=== PATIENT | male | born 1935 | race Caucasian/White ===

== ENCOUNTER 2017-02-23 16:08 | Emergency (ER) | payer MEDICARE, BC ==
[~2017-02-23 16:08] MED LIST: ALFU1TAB10 PO; ASPI81 PO; LOTR5CAP2 PO; MECL25 PO; METO25 PO; SIMV40TA PO; TAB-TAB PO
[2017-02-23 16:35] VITALS: BP 170/89; PULSE 74; RESP 18; TEMP 97.6; O2SAT 95
[2017-02-23] MEDS ORDERED: ALFU10TA2 PO (16:47)
[2017-02-23] MEDS ORDERED: CRANCAP2 PO (16:47)
[2017-02-23] MEDS ORDERED: METO25TA3 PO (16:47)
[2017-02-23] MEDS ORDERED: AMLO5TAB2 PO (16:47)
[2017-02-23] MEDS ORDERED: LIPI40TA PO (16:47)
[2017-02-23] MEDS ORDERED: VITA500S3 PO (16:47)
[2017-02-23] MEDS ORDERED: DUTA1CAP2 PO (16:47)
[2017-02-23] MEDS ORDERED: CO Q100C9 (16:47)
[2017-02-23] MEDS ORDERED: COEN1CAP PO (16:47)
[2017-02-23] MEDS ORDERED: APIX5TAB PO (16:47)
[2017-02-23] MEDS ORDERED: SODIUM CHLOR 0.9% 1000 ML INJ 1,000 ML IV SCH (16:49)
[2017-02-23] MEDS ORDERED: ONDANSETRON HCL 4 MG/2 ML VIAL IVP ONE (17:00)
[2017-02-23] MEDS ORDERED: HYDROmorphone HCL PF 2 MG/ML VIAL IVS ONE (17:00)
[2017-02-23] MEDS ORDERED: DIATRIZOATE MEGLUM/DIATRIZOATE SOD 9 ML CUP ONE (17:01)
[2017-02-23 17:05] VITALS: O2SAT 84
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
[2017-02-23 17:10] VITALS: O2SAT 95
[2017-02-23 17:16] LABS: AUTOMATED NEUTROPHIL # 4.3 TH/MM3 (1.8-7.7); BASOPHIL # 0.1 TH/MM3 (0-0.2); BASOPHIL % 1.9 % (0.0-2.0); EOSINOPHIL # 0.2 TH/MM3 (0-0.4); EOSINOPHIL % 2.8 % (0.0-4.0); HEMATOCRIT 45.6 % (39.0-51.0); HEMO FLAGS DIFF FINAL; LYMPH % 27.5 % (9.0-44.0); MEAN CELL VOLUME 84.7 FL (80.0-100.0); MEAN CORPUSCULAR HEMOGLOBIN 28.9 PG (27.0-34.0); MEAN CORPUSCULAR HGB CONC 34.1 % (32.0-36.0); MONO % 8.9 % (0.0-8.0); NEUT % 58.9 % (16.0-70.0); PLATELET COUNT 207 TH/MM3 (150-450); RED BLOOD COUNT 5.39 MIL/MM3 (4.50-5.90); RED CELL DISTRIBUTION WIDTH 12.7 % (11.6-17.2); WHITE BLOOD COUNT 7.2 TH/MM3 (4.0-11.0)
[2017-02-23 17:26] LABS: CHLORIDE 102 MEQ/L (98-107); POTASSIUM 4.1 MEQ/L (3.5-5.1); SODIUM (NA) 136 MEQ/L (136-145)
[2017-02-23 17:30] LABS: ANION GAP 9 MEQ/L (5-15); BICARBONATE 24.8 MEQ/L (21.0-32.0); BLOOD UREA NITROGEN 20 MG/DL (7-18)
[2017-02-23 17:32] LABS: PROTHROMBIN TIME - PATIENT 10.5 SEC (9.8-11.6)
[2017-02-23 17:33] LABS: ALT (GPT) 17 U/L (12-78); AST (GOT) 15 U/L (15-37); GLOMERULAR FILTRATION RATE 53 ML/MIN (>89)
[2017-02-23 17:35] LABS: TOTAL BILIRUBIN ADULT 0.6 MG/DL (0.2-1.0)
[2017-02-23 17:36] LABS: ALKALINE PHOSPHATASE 95 U/L (45-117)
[2017-02-23 17:38] LABS: CREATINE KINASE 55 U/L (39-308)
[2017-02-23 17:55] VITALS: BP 188/97; PULSE 65; RESP 18; O2SAT 96
[2017-02-23] MEDS ORDERED: ONDANSETRON HCL 4 MG/2 ML VIAL IV PUSH ONE (18:45)
[2017-02-23] MEDS ORDERED: IOHEXOL 350 MG/ML 10 ML VIAL (for RAD DIAG) IVCONTRAST ONE (19:00)
--- NOTE | 2017-02-23 19:16 | RADRPT ---
EXAM DATE/TIME: 02/23/2017 18:37 [facility] COMPARISON: No previous studies available for comparison. INDICATIONS : Abdominal pain and constipation x 6 days. IV CONTRAST: 85 cc Omnipaque 350 (iohexol) IV ORAL CONTRAST: Prescribed oral contrast ingested. RADIATION DOSE: 22.05 CTDIvol (mGy) MEDICAL HISTORY : Renal calculi. Hypertension. Polycystic renal disease. SURGICAL HISTORY : Appendectomy. Cholecystectomy.Inguinal hernia repair. ENCOUNTER: Initial ACUITY: 4 - 6 days PAIN SCALE: 7/10 LOCATION: Abdomen. TECHNIQUE: Volumetric scanning of the abdomen and pelvis was performed. Using automated exposure control and ad justment of the mA and/or kV according to patient size, radiation dose was kept as low as reasonably achievable to obtain optimal diagnostic quality images. DICOM format image data is available electro nically for review and comparison. FINDINGS: LOWER LUNGS: The visualized lower lungs are clear. LIVER: A few scattered low density structures, the largest measuring 2.8 cm in size of the caudate lobe. The se are most likely cysts or hemangiomas. Previous cholecystectomy. No ductal dilatation. SPLEEN: Normal size without lesion. PANCREAS: Within normal limits. KIDNEYS: Numerous variable sized cysts of both kidneys measuring up to 7.4 cm in size. There is a 7 cm cyst of the upper pole of the right kidney with slightly increased attenuation relative to the other cysts a nd probably has some proteinaceous or hemorrhagic debris in it. I don't clearly see a solid mass. The re is a 4 mm nonobstructing stone of the right lower pole and a 4 x 7 mm nonobstructing stone of the left lower pole. A few scattered sub-3 mm nonobstructing stones are seen of the left mid zone. No ure teral calculus or hydronephrosis/hydroureter seen on either side. ADRENAL GLANDS: Within normal limits. VASCULAR: Abdominal aorta is tortuous and atherosclerotic. The vessel is mildly aneurysmal in the mid infrarena l portion, up to 3.3 cm. BOWEL/MESENTERY: Mainly fluid-filled colon. There is mild diverticulosis of the sigmoid colon. No obstruction or infla mmatory changes are demonstrated. There is a small hiatal hernia. Distal esophagus filled with contra st. ABDOMINAL WALL: Within normal limits. RETROPERITONEUM: There is no lymphadenopathy. BLADDER: No wall thickening or mass. REPRODUCTIVE: Within normal limits. INGUINAL: There is no lymphadenopathy or hernia. MUSCULOSKELETAL: No acute bony abnormality demonstrated. 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 CONCLUSION: 1. No obstruction or acute inflammatory changes. 2. Several hepatic hypodensities up to 2.8 cm, probably benign. 3. Numerous bilateral cysts and several nonobstructing stones of the kidneys. 4. Sigmoid colon diverticulosis but no diverticulitis. 5. Small hiatal hernia and suspected gastroesophageal reflux disease. 6. Tortuous, atherosclerotic and minimally aneurysmal abdominal aorta. Thor Mathias MD on February 23, 2017 at 19:09 Board Certified Radiologist. This report was verified electronically.
[2017-02-23 19:26] VITALS: BP 170/73; PULSE 67; RESP 18; TEMP 97.7; O2SAT 97
[2017-02-23] MEDS ORDERED: ORPHENADRINE INJ 60 MG/2 ML AMP IM ONE (20:15)
[2017-02-23] MEDS ORDERED: HYDROmorphone HCL PF 1 MG/ML VIAL IV PUSH ONE (21:30)
[2017-02-23] MEDS ORDERED: KETOROLAC TROMETHAMINE 30 MG/ML (IVP) VIAL IV PUSH ONE (21:30)
[2017-02-23] MEDS ORDERED: PERC10TA27 PO (22:07)
[2017-02-23] MEDS ORDERED: BACL20TA PO (22:07)
[2017-02-23 22:36] LABS: BLOOD, URINE NEG (NEG); GLUCOSE,URINE NEG (NEG); KETONE, URINE 15 mg/dL (NEG); NITRITE,URINE NEG (NEG)
[2017-02-23 22:40] LABS: URINE COLOR YELLOW (YELLW/STRAW)
[2017-02-23 22:41] LABS: COMMENT (UR) CULT NOT INDICATED; CULTURE IF INDICATED CULT NOT INDICATED; SQUAMOUS EPITHELIAL CELL URINE 0-5 /hpf (0-5); WBC, URINE 0-2 /hpf (0-5)
[2017-02-23 22:43] VITALS: BP 178/98
== END 2017-02-23 22:46 | disposition home or self-care (01) ==
LOC: PHED 16:08
DX: M54.5 Low back pain (principal); I71.4 Abdominal aortic aneurysm, without rupture; K57.90 Diverticulosis of intestine, part unspecified, without perforation or abscess without bleeding; I48.91 Unspecified atrial fibrillation; E78.00 Pure hypercholesterolemia, unspecified; N40.0 Benign prostatic hyperplasia without lower urinary tract symptoms; I10 Essential (primary) hypertension; H81.09 Meniere's disease, unspecified ear
CPT/HCPCS: 74177; 80053; 81001; 82550; 83690; 83880; 84484; 85025; 85610; 85730; 96361; 96372; 96374; 96375; 96376; 99285; J1170; J1885; J2360; J2405; J7030; Q9963; Q9967

== ENCOUNTER 2017-11-24 16:16 | Inpatient (IN) | payer MEDICARE, BC ==
[~2017-11-24] VITALS: Ht 177.8 cm; Wt 100.0 kg
[~2017-11-24 16:16] MED LIST changes: +ALFU10TA2 PO; -ALFU1TAB10 PO; +AMLO5TAB2 PO; +APIX5TAB PO; -ASPI81 PO; +CO Q100C9; +CRANCAP2 PO; +DUTA1CAP2 PO; +LIPI40TA PO; -LOTR5CAP2 PO; -MECL25 PO; -METO25 PO; +METO25TA3 PO; +PANT40TA3; -SIMV40TA PO; -TAB-TAB PO; +TRAM50TA; +VITA500S3 PO
[2017-11-24 16:27] VITALS: BP 147/75; PULSE 81; RESP 16; TEMP 98.2; O2SAT 97
[2017-11-24] MEDS ORDERED: ONDANSETRON ODT 4 MG TAB PO ONE (17:00)
[2017-11-24] MEDS ORDERED: MORPHINE SULFATE 2 MG/ML SYRINGE IM ONE (17:00)
--- NOTE | 2017-11-24 17:17 | PD ---
HPI Chief Complaint: Musculoskeletal Complaint Time Seen by Provider: 16:45 Travel History International Travel<30 days: No Contact w/Intl Traveler<30days: No Traveled to known affect area: No History of Present Illness HPI 82-year-old male here with low back pain 2 days. He has a history of chronic back pain and this feels similar. He denies any recent injury or trauma. No fever, incontinence, abdominal pain, saddle anesthesia, paresthesia or weakness of the extremities. Symptom severity is moderate. Worse with movement and relieved with rest. Occasionally pain radiates into the left leg. PCP: Dr. Raygoza [facility] Past Medical History Arthritis: Yes Asthma: No Atrial Fibrillation: Yes Autoimmune Disease: No Blood Disorders: No Heart Rhythm Problems: No Cancer: Yes (MELANOMA) Cardiovascular Problems: Yes High Cholesterol: Yes Chemotherapy: No Chest Pain: No Congestive Heart Failure: No COPD: No Diabetes: No Diminished Hearing: No Endocrine: No Gastrointestinal Disorders: Yes GERD: No Glaucoma: No Genitourinary: Yes (POLYSYSTIC KIDNEY DISEASE, BPH) Hepatitis: No Hiatal Hernia: No Hypertension: Yes Immune Disorder: No Kidney Stones: Yes Musculoskeletal: Yes (Lt. rotator cuff tear ) Neurologic: Yes (MENIERE'S DISEASE) Psychiatric: No Reproductive: No Respiratory: Yes Myocardial Infarction: No Radiation Therapy: No Renal Failure: No Sleep Apnea: Yes Thyroid Disease: No Ulcer: No Past Surgical History Abdominal Surgery: Yes (HERNIA REPAIR 1996) AICD: No Appendectomy: Yes Arteriovenous Shunt: No Cardiac Surgery: No Cholecystectomy: Yes Ear Surgery: No Endocrine Surgery: No Eye Surgery: Yes (BL cataracts w/ lens implants ) Genitourinary Surgery: Yes (Prostate blue laser [place] ) Gynecologic Surgery: No Insulin Pump: No Joint Replacement: Yes (Rt. knee, Lt. great toe ) Oral Surgery: No Pacemaker: No Thoracic Surgery: No Tonsillectomy: Yes Other Surgery: Yes (Melanoma removed w/ flap Rt. side neck ) Social History Alcohol Use: Yes (Occ.) Tobacco Use: No Substance Use: No Allergies-Medications (Allergen,Severity, Reaction): Coded Allergies: Sulfa (Sulfonamide Antibiotics) (Verified Allergy, Severe, Hives, 11/24/17) adhesive tape (Verified Allergy, Severe, Rash, 11/24/17) bacitracin (Verified Allergy, Severe, Rash, 11/24/17) polymyxin B (Verified Allergy, Severe, Rash, 11/24/17) diazepam (Unverified Adverse Reaction, Severe, "Cardiac arrest", 11/24/17) Reported Meds & Prescriptions Reported Meds & Active Scripts Active Reported Pantoprazole (Pantoprazole Sodium) 40 Mg Tab Eliquis (Apixaban) 5 Mg Tab 5 Mg PO DAILY Lipitor (Atorvastatin Calcium) 40 Mg Tab 40 Mg PO HS Cranberry Urinary Comfort (Vitamins C & E) 1 Cap 1 Cap PO DAILY Amlodipine (Amlodipine Besylate) 5 Mg Tab 5 Mg PO DAILY Co Q 10 (Coenzyme Q10 (Ubidecarenone)) 100 Mg-5 Unit Cap Vitamin B-12 (Cyanocobalamin) 500 Mcg Subl 1,000 Mg PO DAILY Dutasteride 0.5 Mg Cap 0.5 Mg PO DAILY Alfuzosin ER 24 HR 10 Mg Tab 10 Mg PO DAILY Metoprolol Tartrate 25 Mg Tab 25 Mg PO DAILY Review of Systems Except as stated in HPI: all other systems reviewed are Neg General / Constitutional: No: Fever Eyes: No: Visual changes HENT: No: Headaches Cardiovascular: No: Chest Pain or Discomfort Gastrointestinal: No: Abdominal Pain Genitourinary: No: Dysuria Skin: No Rash Physical Exam Narrative GENERAL: Alert and well-appearing 81-year-old male. Mild distress. SKIN: Warm and dry. HEAD: Normocephalic. EYES: No scleral icterus. No injection or drainage. NECK: Supple, trachea midline. CARDIOVASCULAR: Regular rate and rhythm without murmurs, gallops, or rubs. RESPIRATORY: Breath sounds equal bilaterally. No accessory muscle use. GASTROINTESTINAL: Abdomen soft, non-tender, nondistended. MUSCULOSKELETAL: No cyanosis, or edema. 5/5 strength in his lower extremities. 5/5 strength of dorsiflexion, plantar flexion, knee and hip flexion bilaterally. Sensation intact to light touch distally. BACK: Nontender without obvious deformity. No CVA tenderness. Generalized lumbar tenderness. No point tenderness of the spine. Data Data Last Documented VS Vital Signs Date Time Temp Pulse Resp B/P (MAP) Pulse Ox O2 Delivery O2 Flow Rate FiO2 11/24/17 19:03 63 20 147/68 (94) 94 11/24/17 16:27 98.2 Orders Orders Morphine Inj (Morphine Inj) (11/24/17 17:00) Ondansetron Odt (Zofran Odt) (11/24/17 17:00) Iv Access Insert/Monitor (11/24/17 17:33) Hydromorphone Pf Inj (Dilaudid Pf Inj) (11/24/17 17:45) Basic Metabolic Panel (Bmp) (11/24/17 17:57) Complete Blood Count With Diff (11/24/17 17:57) Ct Abd/Pel W Iv Contrast(Rout) (11/24/17 17:57) Ct Lumb Spine W Iv Contrast (11/24/17 17:57) Iohexol 350 Inj (Omnipaque 350 Inj) (11/24/17 19:12) Hydromorphone Pf Inj (Dilaudid Pf Inj) (11/24/17 19:45) Labs Laboratory Tests Test 11/24/17 18:00 White Blood Count 9.6 TH/MM3 Red Blood Count 4.84 MIL/MM3 Hemoglobin 13.9 GM/DL Hematocrit 41.9 % Mean Corpuscular Volume 86.5 FL Mean Corpuscular Hemoglobin 28.8 PG Mean Corpuscular Hemoglobin Concent 33.3 % Red Cell Distribution Width 13.4 % Platelet Count 259 TH/MM3 Mean Platelet Volume 8.5 FL Neutrophils (%) (Auto) 58.6 % Lymphocytes (%) (Auto) 30.6 % Monocytes (%) (Auto) 6.4 % Eosinophils (%) (Auto) 2.9 % Basophils (%) (Auto) 1.5 % Neutrophils # (Auto) 5.7 TH/MM3 Lymphocytes # (Auto) 2.9 TH/MM3 Monocytes # (Auto) 0.6 TH/MM3 Eosinophils # (Auto) 0.3 TH/MM3 Basophils # (Auto) 0.1 TH/MM3 CBC Comment DIFF FINAL Differential Comment Blood Urea Nitrogen 18 MG/DL Creatinine 0.99 MG/DL Random Glucose 94 MG/DL Calcium Level 9.1 MG/DL Sodium Level 139 MEQ/L Potassium Level 3.9 MEQ/L Chloride Level 105 MEQ/L Carbon Dioxide Level 22.4 MEQ/L Anion Gap 12 MEQ/L Estimat Glomerular Filtration Rate 72 ML/MIN MDM Medical Decision Making Medical Screen Exam Complete: Yes Emergency Medical Condition: Yes Interpretation(s) Afebrile. Normotensive. No tachycardia CBC: No acute abnormalities BMP: No acute after maladies Differential Diagnosis Acute on chronic low back pain, herniated disc, DDD Narrative Course 82-year-old male with a history of chronic low back pain here with increasing pain over the last 2 days and on relieved by Tylenol. He has a normal neurologic exam. During the course of the ED his pain was difficult to manage. CT abdomen pelvis/lumbar spine: Lytic bone destruction of L3 with likely pathologic fracture of L3 and L1 concerning for metastatic disease or myeloma. Spoke with Dr. Soria who agrees to it patient to their service. Diagnosis Primary Impression: Pathologic compression fracture of lumbar vertebra Qualified Codes: M48.56XA - Collapsed vertebra, not elsewhere classified, lumbar region, initial encounter for fracture Admitting Information Admitting Physician Requests: Admit Rhonda Roach Nov 24, 2017 17:17
[2017-11-24 17:32] VITALS: BP 152/87; PULSE 77; RESP 20; O2SAT 97
[2017-11-24] MEDS ORDERED: HYDROmorphone HCL PF 1 MG/ML VIAL IVS ONE (17:45)
[2017-11-24] MEDS ORDERED: HYDROmorphone HCL PF 0.5 MG/0.5 ML SYRINGE IV PUSH ONE (17:45)
--- NOTE | 2017-11-24 18:00 | PD ---
Data Data Last Documented VS Vital Signs Date Time Temp Pulse Resp B/P (MAP) Pulse Ox O2 Delivery O2 Flow Rate FiO2 11/24/17 19:03 63 20 147/68 (94) 94 11/24/17 16:27 98.2 Orders Orders Morphine Inj (Morphine Inj) (11/24/17 17:00) Ondansetron Odt (Zofran Odt) (11/24/17 17:00) Iv Access Insert/Monitor (11/24/17 17:33) Hydromorphone Pf Inj (Dilaudid Pf Inj) (11/24/17 17:45) Basic Metabolic Panel (Bmp) (11/24/17 17:57) Complete Blood Count With Diff (11/24/17 17:57) Ct Abd/Pel W Iv Contrast(Rout) (11/24/17 17:57) Ct Lumb Spine W Iv Contrast (11/24/17 17:57) Iohexol 350 Inj (Omnipaque 350 Inj) (11/24/17 19:12) Hydromorphone Pf Inj (Dilaudid Pf Inj) (11/24/17 19:45) Labs Laboratory Tests Test 11/24/17 18:00 White Blood Count 9.6 TH/MM3 Red Blood Count 4.84 MIL/MM3 Hemoglobin 13.9 GM/DL Hematocrit 41.9 % Mean Corpuscular Volume 86.5 FL Mean Corpuscular Hemoglobin 28.8 PG Mean Corpuscular Hemoglobin Concent 33.3 % Red Cell Distribution Width 13.4 % Platelet Count 259 TH/MM3 Mean Platelet Volume 8.5 FL Neutrophils (%) (Auto) 58.6 % Lymphocytes (%) (Auto) 30.6 % Monocytes (%) (Auto) 6.4 % Eosinophils (%) (Auto) 2.9 % Basophils (%) (Auto) 1.5 % Neutrophils # (Auto) 5.7 TH/MM3 Lymphocytes # (Auto) 2.9 TH/MM3 Monocytes # (Auto) 0.6 TH/MM3 Eosinophils # (Auto) 0.3 TH/MM3 Basophils # (Auto) 0.1 TH/MM3 CBC Comment DIFF FINAL Differential Comment Blood Urea Nitrogen 18 MG/DL Creatinine 0.99 MG/DL Random Glucose 94 MG/DL Calcium Level 9.1 MG/DL Sodium Level 139 MEQ/L Potassium Level 3.9 MEQ/L Chloride Level 105 MEQ/L Carbon Dioxide Level 22.4 MEQ/L Anion Gap 12 MEQ/L Estimat Glomerular Filtration Rate 72 ML/MIN MDM Supervised Visit with FER: Yes Narrative Course I, Dr. Aviles, have reviewed the advance practice practitioner's documentation and am in agreement, met with the patient face to face, made the diagnosis, and the medical decision making was done by me. *My assessment and Findings: This patient is a challenging historian. He using contradictory tail. I have spoken with him and examined him. As best I can tell, he has had back pain for at least a full year but it is worse today than usual. It has been a gradual worsening not an acute onset by any stretch. No injury. He has no neuro deficit. He gets around with a walker. He has been referred to pain management by his physician but that is not for another month and he came here for some pain relief. He does have known history of small 3.3 cm AAA which was found 9 months ago. He has known history of L1 severe compression fracture. We are going to CT images spine and his aorta. Given the size of his aneurysm I doubt this is related to his worsening chronic back pain but given his age and vague history we are going to check and make sure. I reviewed CT imaging of his lumbar spine and abdomen and pelvis. Radiologist notes pathologic fractures of L1 and L3. There is concern for multiple myeloma or other metastatic disease. Patient having significant back pain with these findings. He will require admission for further workup. Diagnosis Primary Impression: Pathologic compression fracture of lumbar vertebra Qualified Codes: M48.56XA - Collapsed vertebra, not elsewhere classified, lumbar region, initial encounter for fracture Additional Impression: Intractable back pain Admitting Information Admitting Physician Requests: Admit Disposition: 01 DISCHARGE HOME Coleman Aviles MD Nov 24, 2017 18:00
[2017-11-24 18:11] LABS: AUTOMATED NEUTROPHIL # 5.7 TH/MM3 (1.8-7.7); BASOPHIL # 0.1 TH/MM3 (0-0.2); BASOPHIL % 1.5 % (0.0-2.0); EOSINOPHIL # 0.3 TH/MM3 (0-0.4); EOSINOPHIL % 2.9 % (0.0-4.0); HEMATOCRIT 41.9 % (39.0-51.0); HEMOGLOBIN 13.9 GM/DL (13.0-17.0); LYMPH % 30.6 % (9.0-44.0); LYMPHOCYTE # 2.9 TH/MM3 (1.0-4.8); MEAN CELL VOLUME 86.5 FL (80.0-100.0); MEAN CORPUSCULAR HEMOGLOBIN 28.8 PG (27.0-34.0); MEAN CORPUSCULAR HGB CONC 33.3 % (32.0-36.0); MEAN PLATELET VOLUME 8.5 FL (7.0-11.0); MONO % 6.4 % (0.0-8.0); MONOCYTE # 0.6 TH/MM3 (0-0.9); NEUT % 58.6 % (16.0-70.0); PLATELET COUNT 259 TH/MM3 (150-450); RED BLOOD COUNT 4.84 MIL/MM3 (4.50-5.90); RED CELL DISTRIBUTION WIDTH 13.4 % (11.6-17.2); WHITE BLOOD COUNT 9.6 TH/MM3 (4.0-11.0)
[2017-11-24 18:34] LABS: CALCIUM 9.1 MG/DL (8.5-10.1)
[2017-11-24 18:35] LABS: BICARBONATE 22.4 MEQ/L (21.0-32.0)
[2017-11-24 18:38] LABS: CREATININE 0.99 MG/DL (0.60-1.30)
[2017-11-24 19:03] VITALS: BP 147/68; PULSE 63; RESP 20; O2SAT 94
[2017-11-24] MEDS ORDERED: IOHEXOL 350 MG/ML 10 ML VIAL (for RAD DIAG) IVCONTRAST ONE (19:12)
--- NOTE | 2017-11-24 19:18 | RADRPT ---
EXAM DATE: 11/24/2017 7:08 PM EDT AGE/SEX: 82 years / Male INDICATIONS: Back pain x 1 year, worse today. CLINICAL DATA: This is the patient's initial encounter. Patient reports that signs and symptoms have been present for 1 day and indicates a pain score of 5/10. MEDICAL/SURGICAL HISTORY: Aneurysm, abdominal. Gastroesophageal reflux disease. Renal calculi . Hypertension. Appendectomy. Cholecystectomy. ORAL CONTRAST: No oral contrast ingested. RADIATION DOSE: 18.65 CTDI (mGy) ; Combined studies COMPARISON: [facility], CT ABDOMEN & PELVIS W CONTRAST, 02/23/2017. . TECHNIQUE: Multiple contiguous axial images were obtained through the abdomen and pelvis following b olus infusion of 90 ml Omnipaque 350 (iohexol) nonionic water-soluble contrast as a cumulative dose for multiple exams. No oral contrast ingested. Using automated exposure control and adjustment of t he mA and/or kV according to patient size, the radiation dose was kept as low as reasonably achievabl e to obtain optimal diagnostic quality images. FINDINGS: There is bony destruction of the L3 vertebral body with pathologic fracture in the anterior and super ior endplate. This is a new finding compared with February 2017. Differential diagnosis includes mal ignant destruction such as myeloma. There is also development of a severe compression deformity at L1 with mild retropulsion and mild canal stenosis. There are numerous bilateral renal cysts similar in appearance to prior exam. Nonobstructing bilatera l renal calculi again noted. There are multiple hepatic cysts similar to prior exam. Spleen adrenals and pancreas are stable. Prev ious cholecystectomy. Small hiatal hernia. No pelvic mass or adenopathy. CONCLUSION: 1. Lytic bone destruction of L3 with likely pathologic fractures of L3 and L1. Primary differential diagnosis is metastatic disease or myeloma. 2. Stable appearance of bilateral renal cysts, nonobstructing renal calculi and hepatic cysts Septem 2016. Electronically signed by: Anand Emery MD 11/24/2017 7:16 PM EDT
--- NOTE | 2017-11-24 19:23 | RADRPT ---
EXAM DATE: 11/24/2017 7:12 PM EDT AGE/SEX: 82 years / Male INDICATIONS: Back pain x 1 year, worse today. Abdominal pain. History of AAA. CLINICAL DATA: This is the patient's initial encounter. Patient reports that signs and symptoms have been present for 1 day and indicates a pain score of 10/10. MEDICAL/SURGICAL HISTORY: Aneurysm, abdominal. Gastroesophageal reflux disease. Renal calculi. H ypertension. Appendectomy. Cholecystectomy. RADIATION DOSE: . CTDI (mGy) ; Reconstructed from previous dataset, no dose COMPARISON: No prior exams available for comparison. TECHNIQUE: Contiguous axial images were acquired with a multirow detector CT scanner after intraveno us administration of 90 ml Omnipaque 350 (iohexol) nonionic water-soluble contrast as a cumulative d ose for multiple exams. Multiplanar reconstructions in the sagittal and coronal plane were also perf ormed. Using automated exposure control and adjustment of the mA and/or kV according to patient size, radiation dose was kept as low as reasonably achievable to obtain optimal diagnostic quality images. FINDINGS: The bones are diffusely osteopenic. There is lytic bone destruction of L3 with pathologic fractures o f superior and inferior endplate. There is a severe compression deformity of L1 which is probably als o pathologic with mild retropulsion resulting in mild canal stenosis. At L1-2 there is no significant stenosis. At L2-3 there is a probable moderate central canal lateral recess stenosis and mild foraminal stenosi s. At L3-4 there is a mild central canal stenosis. At L4-5 there is a mild central canal stenosis. L5-S1 there is a grade 1 anterolisthesis with bilateral pars defects. Severe bilateral foraminal sten osis. CONCLUSION: 1. Osteopenia with lytic bone destruction at L3 and probable pathologic severe compression fracture of L1. Primary differential diagnosis is myeloma or metastatic disease. 2. Multilevel canal stenosis as above. 3. Grade 1 anterolisthesis of L5 on S1 with severe bilateral foraminal stenosis. Electronically signed by: Anand Emery MD 11/24/2017 7:21 PM EDT
[2017-11-24] MEDS ORDERED: HYDROmorphone HCL PF 1 MG/ML VIAL IV PUSH ONE (19:30)
[2017-11-24] MEDS ORDERED: HYDROmorphone HCL PF 2 MG/ML VIAL IV PUSH ONE (19:45)
[2017-11-24 20:00] VITALS: BP 149/80; PULSE 71; RESP 20; TEMP 97.1; O2SAT 91
[2017-11-24] MEDS ORDERED: MAGNESIUM HYDROXIDE SUSP 30 ML CUP PO PRN (20:00)
[2017-11-24] MEDS ORDERED: BISACODYL 10 MG SUPP RECTAL PRN (20:00)
[2017-11-24] MEDS ORDERED: LACTULOSE SYRUP 20 GM/30 ML CUP PO PRN (20:00)
[2017-11-24] MEDS ORDERED: ACETAMINOPHEN 325 MG TAB PO PRN (20:00)
[2017-11-24] MEDS ORDERED: SODIUM CHLORIDE 0.9% FLUSH 10 ML FLUSH IV FLUSH PRN (20:00)
[2017-11-24 20:13] VITALS: BP 186/83; PULSE 65; RESP 20; O2SAT 92
[2017-11-24] MEDS: METOCLOPRAMIDE HCL 10 MG/2 ML VIAL IV PUSH PRN (20:25)
[2017-11-24] MEDS: DOCUSATE SODIUM 50 MG/SENNA 8.6 MG TAB PO SCH (21:00)
[2017-11-24] MEDS: ATORVASTATIN 40 MG TAB PO SCH (21:00)
[2017-11-24] MEDS: SODIUM CHLORIDE 0.9% FLUSH 10 ML FLUSH IV FLUSH SCH (21:00)
[2017-11-24 21:15] VITALS: BP 170/79
[2017-11-24] MEDS: SODIUM CHLOR 0.9% 1000 ML INJ 1,000 ML IV SCH (22:05)
[2017-11-24] MEDS: PROCHLORPERAZINE INJ 10 MG/2 ML VIAL IV PUSH PRN (22:07)
[2017-11-24] MEDS: MORPHINE SULFATE 2 MG/ML SYRINGE IV PUSH PRN (22:08)
[2017-11-25] VITALS (8 sets, daily range): BP systolic 109–156; BP diastolic 55–80; PULSE 61–75; RESP 16–20; TEMP 96.2–97.5; O2SAT 94–97
[2017-11-25] MEDS: MORPHINE SULFATE 2 MG/ML SYRINGE IV PUSH PRN ×2 (01:56→06:10)
[2017-11-25] MEDS: SODIUM CHLOR 0.9% 1000 ML INJ 1,000 ML IV SCH (06:10)
[2017-11-25 07:37] LABS: AUTOMATED NEUTROPHIL # 4.7 TH/MM3 (1.8-7.7); BASOPHIL # 0.1 TH/MM3 (0-0.2); BASOPHIL % 0.9 % (0.0-2.0); EOSINOPHIL # 0.2 TH/MM3 (0-0.4); EOSINOPHIL % 2.3 % (0.0-4.0); HEMATOCRIT 39.7 % (39.0-51.0); HEMOGLOBIN 13.3 GM/DL (13.0-17.0); LYMPH % 29.2 % (9.0-44.0); LYMPHOCYTE # 2.3 TH/MM3 (1.0-4.8); MEAN CELL VOLUME 86.6 FL (80.0-100.0); MEAN CORPUSCULAR HEMOGLOBIN 28.9 PG (27.0-34.0); MEAN CORPUSCULAR HGB CONC 33.3 % (32.0-36.0); MEAN PLATELET VOLUME 8.6 FL (7.0-11.0); MONO % 8.4 % (0.0-8.0); MONOCYTE # 0.7 TH/MM3 (0-0.9); NEUT % 59.2 % (16.0-70.0); PLATELET COUNT 218 TH/MM3 (150-450); RED BLOOD COUNT 4.59 MIL/MM3 (4.50-5.90); RED CELL DISTRIBUTION WIDTH 13.4 % (11.6-17.2)
[2017-11-25 07:48] LABS: CHLORIDE 107 MEQ/L (98-107); SODIUM (NA) 141 MEQ/L (136-145)
[2017-11-25 07:57] LABS: ALBUMIN 2.8 GM/DL (3.4-5.0); BICARBONATE 24.6 MEQ/L (21.0-32.0); BLOOD UREA NITROGEN 17 MG/DL (7-18); CALCIUM 8.6 MG/DL (8.5-10.1); GLUCOSE,RANDOM 91 MG/DL (74-106)
[2017-11-25 08:00] LABS: ALT (GPT) 17 U/L (12-78); AST (GOT) 15 U/L (15-37); CREATININE 0.85 MG/DL (0.60-1.30); GLOMERULAR FILTRATION RATE 86 ML/MIN (>89)
[2017-11-25 08:02] LABS: TOTAL BILIRUBIN ADULT 0.6 MG/DL (0.2-1.0); TOTAL PROTEIN 6.4 GM/DL (6.4-8.2)
[2017-11-25 08:03] LABS: ALKALINE PHOSPHATASE 111 U/L (45-117)
[2017-11-25 08:04] LABS: C-REACTIVE PROTEIN 3.88 MG/DL (0.00-0.30)
[2017-11-25] MEDS: FINASTERIDE 5 MG TAB PO SCH (08:51)
[2017-11-25] MEDS: TAMSULOSIN HCL 0.4 MG CAP PO SCH (08:51)
[2017-11-25] MEDS: CYANOCOBALAMIN 1,000 MCG TAB PO SCH (08:52)
[2017-11-25] MEDS: SODIUM CHLORIDE 0.9% FLUSH 10 ML FLUSH IV FLUSH SCH ×2 (08:52→20:59)
[2017-11-25] MEDS: METOPROLOL TARTRATE 25 MG TAB PO SCH (08:52)
[2017-11-25] MEDS: DOCUSATE SODIUM 50 MG/SENNA 8.6 MG TAB PO SCH ×2 (08:52→21:24)
[2017-11-25] MEDS: amLODIPine BESYLATE 5 MG TAB PO SCH (08:52)
[2017-11-25] MEDS: ACETAMINOPHEN/HYDROcodone 325 MG/5 MG TAB PO PRN ×2 (08:58→18:07)
[2017-11-25 09:16] LABS: WESTERGREN SEDIMENTATION RATE 44 mm/hr (0-20)
--- NOTE | 2017-11-25 10:14 | HHI.HP ---
[facility] Primary Care Physician Simon Raygoza MD Admission Diagnosis PATHOLOGIC FX OF L3 Diagnoses: Chief Complaint: Back pain Travel History International Travel<30 Days: No Contact w/Intl Traveler <30 Da: No Traveled to Known Affected Are: No History of Present Illness This patient is a 82-year-old gentleman with a history of chronic back pain with multiple lumbar compression fractures and disc surgery evaluated since February 2017. Patient has had increased pain over the last 2 months and worse over the last 2 days. He has been in physical therapy over the last several months and noted a change in therapy treatment with increased pain. Pain is in the lumbar spine worse on the left than the right and radiating to bilateral legs worse again on the left and the right. It is improved with IV morphine. Patient normally takes Tylenol at home and noted that he found in oxycodone from her previous prescription and seemed to provide relief. He has no fever, incontinence, abdominal pain, saddle anesthesia or paresthesias or weakness. Pain is worse with movement and again relieved with morphine and rest. Patient came to the hospital for further evaluation and treatment of the same Review of Systems Constitutional: DENIES: Diaphoretic episodes, Fatigue, Fever, Weight gain, Weight loss, Chills, Dizziness, Change in appetite, Night Sweats Endocrine: DENIES: Heat/cold intolerance, Polydipsia, Polyuria, Polyphagia Eyes: DENIES: Blurred vision, Diplopia, Eye inflammation, Eye pain, Vision loss , Photosensitivity, Double Vision Ears, nose, mouth, throat: DENIES: Tinnitus, Hearing loss, Vertigo, Nasal discharge, Oral lesions, Throat pain, Hoarseness, Ear Pain, Running Nose, Epistaxis, Sinus Pain, Toothache, Odynophagia Gastrointestinal: DENIES: Abdominal pain, Black stools, Bloody stools, Constipation, Diarrhea, Nausea, Vomiting, Difficulty Swallowing, Anorexia Genitourinary: DENIES: Sexual dysfunction, Urinary frequency, Urinary incontinence, Urgency, Hematuria, Dysuria, Nocturia, Penile Discharge, Testicular Pain, Testicular Swelling Musculoskeletal: COMPLAINS OF: Joint pain, Back pain, DENIES: Muscle aches, Stiffness, Joint Swelling, Neck pain Integumentary: DENIES: Abnormal pigmentation, Nail changes, Pruritus, Rash Immunologic/allergic: DENIES: Eczema, Urticaria Neurologic: DENIES: Abnormal gait, Headache, Localized weakness, Paresthesias, Seizures, Speech Problems, Tremor, Poor Balance Psychiatric: DENIES: Anxiety, Confusion, Mood changes, Depression, Hallucinations, Agitation, Suicidal Ideation, Homicidal Ideation, Delusions Except as stated in HPI: all other systems reviewed are Neg Past Family Social History Past Medical History Atrial fibrillation Melanoma, right neck Polycystic kidney disease Benign prostatic hyperplasia Sleep apnea Years Past Surgical History Hernia repair Appendectomy Cataract surgery Prostate surgery Right knee surgery Skin surgery for melanoma right neck Cholecystectomy Tonsillectomy Carpal tunnel surgery bilaterally Reported Medications Reviewed in the EMR Allergies: Coded Allergies: Sulfa (Sulfonamide Antibiotics) (Verified Allergy, Severe, Hives, 11/24/17) adhesive tape (Verified Allergy, Severe, Rash, 11/24/17) bacitracin (Verified Allergy, Severe, Rash, 11/24/17) polymyxin B (Verified Allergy, Severe, Rash, 11/24/17) diazepam (Unverified Adverse Reaction, Severe, "Cardiac arrest", 11/24/17) Active Ordered Medications Reviewed in the EMR Family History Hypertension Social History No tobacco or alcohol dependency, lives with his , Physical Exam Vital Signs Vital Signs Date Time Temp Pulse Resp B/P (MAP) Pulse Ox O2 Delivery O2 Flow Rate FiO2 11/25/17 08:00 97.5 72 16 156/80 (105) 96 11/25/17 04:00 96.4 75 20 109/55 (73) 97 11/24/17 21:15 170/79 (109) 11/24/17 20:13 65 20 186/83 (117) 92 Room Air 11/24/17 20:00 97.1 71 20 149/80 (103) 91 11/24/17 19:03 63 20 147/68 (94) 94 11/24/17 17:32 77 20 152/87 (108) 97 11/24/17 16:27 98.2 81 16 147/75 (99) 97 Physical Exam GENERAL: This is a well-nourished, well-developed patient, in no apparent distress. SKIN: No rashes, ecchymoses or lesions. Cool and dry. HEAD: Atraumatic. Normocephalic. No temporal or scalp tenderness. EYES: Pupils equal round and reactive. Extraocular motions intact. No scleral icterus. No injection or drainage. ENT: Nose without bleeding, purulent drainage or septal hematoma. Throat without erythema, tonsillar hypertrophy or exudate. Uvula midline. Airway patent. NECK: Trachea midline. No JVD or lymphadenopathy. Supple, nontender, no meningeal signs. CARDIOVASCULAR: Regular rate and rhythm without murmurs, gallops, or rubs. RESPIRATORY: Clear to auscultation. Breath sounds equal bilaterally. No wheezes , rales, or rhonchi. GASTROINTESTINAL: abdomen soft, non-tender, nondistended. No hepato-splenomegaly , or palpable masses. No guarding. MUSCULOSKELETAL: Back pain, otherwise extremities without clubbing, cyanosis, or edema. No joint tenderness, effusion, or edema noted. No calf tenderness. Negative Homans sign bilaterally. NEUROLOGICAL: Awake and alert. Cranial nerves II through XII intact. Motor and sensory grossly within normal limits. Five out of 5 muscle strength in all muscle groups. Normal speech. Laboratory Laboratory Tests Test 11/24/17 18:00 11/25/17 06:11 White Blood Count 9.6 8.0 Red Blood Count 4.84 4.59 Hemoglobin 13.9 13.3 Hematocrit 41.9 39.7 Mean Corpuscular Volume 86.5 86.6 Mean Corpuscular Hemoglobin 28.8 28.9 Mean Corpuscular Hemoglobin Concent 33.3 33.3 Red Cell Distribution Width 13.4 13.4 Platelet Count 259 218 Mean Platelet Volume 8.5 8.6 Neutrophils (%) (Auto) 58.6 59.2 Lymphocytes (%) (Auto) 30.6 29.2 Monocytes (%) (Auto) 6.4 8.4 Eosinophils (%) (Auto) 2.9 2.3 Basophils (%) (Auto) 1.5 0.9 Neutrophils # (Auto) 5.7 4.7 Lymphocytes # (Auto) 2.9 2.3 Monocytes # (Auto) 0.6 0.7 Eosinophils # (Auto) 0.3 0.2 Basophils # (Auto) 0.1 0.1 CBC Comment DIFF FINAL DIFF FINAL Differential Comment Blood Urea Nitrogen 18 17 Creatinine 0.99 0.85 Random Glucose 94 91 Calcium Level 9.1 8.6 Sodium Level 139 141 Potassium Level 3.9 3.6 Chloride Level 105 107 Carbon Dioxide Level 22.4 24.6 Anion Gap 12 9 Estimat Glomerular Filtration Rate 72 86 Erythrocyte Sedimentation Rate 44 Total Protein 6.4 Albumin 2.8 Alkaline Phosphatase 111 Aspartate Amino Transf (AST/SGOT) 15 Alanine Aminotransferase (ALT/SGPT) 17 Total Bilirubin 0.6 C-Reactive Protein 3.88 Thyroid Stimulating Hormone 3rd Gen 1.730 Result Diagram: 11/25/17 0611 11/25/17 06 Imaging Last Impressions Lumbar Spine CT 11/24/171756 Signed Impressions: CONCLUSION: 1. Osteopenia with lytic bone destruction at L3 and probable pathologic severe compression fracture of L1. Primary differential diagnosis is myeloma or metas tatic disease. 2. Multilevel canal stenosis as above. 3. Grade 1 anterolisthesis of L5 on S1 with severe bilateral foraminal stenosi s. Abdomen/Pelvis CT 11/24/171756 Signed Impressions: CONCLUSION: 1. Lytic bone destruction of L3 with likely pathologic fractures of L3 and L1. Primary differential diagnosis is metastatic disease or myeloma. 2. Stable appearance of bilateral renal cysts, nonobstructing renal calculi an d hepatic cysts February 2017. Caprini VTE Risk Assessment Caprini VTE Risk Assessment: Mod/High Risk (score >= 2) Caprini Risk Assessment Model Point Value = 1 Point Value = 2 Point Value = 3 Point Value = 5 Age 41-60 Minor surgery BMI > 25 kg/m2 Swollen legs Varicose veins or History of unexplained or recurrent spontaneous Oral contraceptives or hormone replacement Sepsis (< 1 month) Serious lung disease, including pneumonia (< 1 month) Abnormal pulmonary function Acute myocardial infarction Congestive heart failure (< 1 month) History of inflammatory bowel disease Medical patient at bed rest Age 61-74 Arthroscopic surgery Major open surgery (> 45 min) Laparoscopic surgery (> 45 min) Malignancy Confined to bed (> 72 hours) Immobilizing plaster cast Central venous access Age >= 75 History of VTE Family history of VTE Factor V Leiden Prothrombin [id number] Lupus anticoagulant Anticardiolipin antibodies Elevated serum homocysteine Heparin-induced thrombocytopenia Other congenital or acquired thrombophilia Stroke (< 1 month) Elective arthroplasty Hip, pelvis, or leg fracture Acute spinal cord injury (< 1 month) Prophylaxis Regimen Total Risk Factor Score Risk Level Prophylaxis Regimen 0-1 Low Early ambulation 2 Moderate Order ONE of the following: *Sequential Compression Device (SCD) *Heparin 5000 units SQ BID 3-4 Higher Order ONE of the following medications: *Heparin 5000 units SQ TID *Enoxaparin/Lovenox 40 mg SQ daily (WT < 150 kg, CrCl > 30 mL/min) *Enoxaparin/Lovenox 30 mg SQ daily (WT < 150 kg, CrCl > 10-29 mL/min) *Enoxaparin/Lovenox 30 mg SQ BID (WT < 150 kg, CrCl > 30 mL/min) AND/OR *Sequential Compression Device (SCD) 5 or more Highest Order ONE of the following medications: *Heparin 5000 units SQ TID (Preferred with Epidurals) *Enoxaparin/Lovenox 40 mg SQ daily (WT < 150 kg, CrCl > 30 mL/min) *Enoxaparin/Lovenox 30 mg SQ daily (WT < 150 kg, CrCl > 10-29 mL/min) *Enoxaparin/Lovenox 30 mg SQ BID (WT < 150 kg, CrCl > 30 mL/min) AND *Sequential Compression Device (SCD) Assessment and Plan Problem List: (1) Afib ICD Code: I48.91 - Unspecified atrial fibrillation Plan: Patient on Xarelto Continue metoprolol Rate is controlled (2) Pathologic compression fracture of lumbar vertebra ICD Code: M48.56XA - Collapsed vertebra, not elsewhere classified, lumbar region, initial encounter for fracture Status: Acute Plan: he will benefit from further hematology evaluation We will discuss with hematology for further plan Continue with pain management Patient would like to have conservative management (3) Intractable back pain ICD Code: M54.9 - Dorsalgia, unspecified Status: Acute Plan: Continue with tramadol Outpatient pain management follow-up pending Probable pathological fracture, (4) HTN (hypertension) ICD Code: I10 - Essential (primary) hypertension Plan: Controlled on metoprolol and amlodipine Code Status Full code Discussed Condition With Patient, spouse, hematology Problem Qualifiers (1) Pathologic compression fracture of lumbar vertebra: Qualified Codes: M48.56XA - Collapsed vertebra, not elsewhere classified, lumbar region, initial encounter for fracture Susy Cooley MD Nov 25, 2017 10:14
[2017-11-25] MEDS: traMADol HCL 50 MG TAB PO SCH ×2 (11:02→21:25)
--- NOTE | 2017-11-25 11:40 | MB ---
cc: Micah Fink MD DATE: 11/25/2017 REASON FOR CONSULTATION: Probable lytic lesion at L3. PATIENT PROFILE OF PRESENT ILLNESS: The patient is an 82-year-old white male. He has been twice. He has 3 children, 2 daughters and a son. He was born in [place]. 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 He smoked only briefly for a total of 5 years when he was young. There is no history of excessive alcohol use. HISTORY OF PRESENT ILLNESS: The patient is an 82-year-old male who has had a longstanding history of lower back pain. He has a known compression fracture involving the lower back and in [address] Cat, who is a neurosurgeon. He has not required any neurosurgical intervention. Over the past 3-4 weeks, the pain has worsened and within the past several days, became excruciating. For the first time, the pain radiated down both legs, more so in the left than the right. The pain radiates down the left leg to the tibial area. There is no incontinence of bowel or bladder. The patient came to the emergency room because of the intensity of the pain. Upon arrival, he underwent a CT scan of the lumbosacral spine. He was found to have osteopenia with lytic bone destruction at L3 and probable pathologic severe compression fracture of L1. Primary differential was myeloma or metastatic disease. He had a CAT scan of the abdomen and pelvis on 11/24/2017, showing a lytic bone destruction of L3 with likely pathologic fracture of L3 and L1. Again, the differential was metastatic disease or myeloma. He has multiple stable bilateral renal cysts with a history of polycystic kidney disease. He has a previous history of a malignancy, having undergone resection of a melanoma from the right neck in 2012. He has had no history of reoccurrence of the melanoma. The last time he had a chest x-ray was in 04/2008. PAST SURGICAL HISTORY: 1. Tonsillectomy. 2. Cholecystectomy. 3. Appendectomy. 4. Approximately 10 years ago, he had a procedure at the [facility] to help assist urination. 5. Right knee replacement. 6. Melanoma removed from right neck in 2012 and another melanoma removed many years prior to this. PAST MEDICAL HISTORY: 1. Sleep apnea. 2. Polycystic kidney disease. 3. Gastroesophageal reflux. 4. Intermittent atrial fibrillation. The patient sees Dr. Urbina and takes Eliquis 5 mg once a day. 5. Hypertension. 6. Elevated cholesterol. 7. Polycystic kidney disease. 8. The patient has had upper endoscopies and endoscopic ultrasounds. At one point, he was felt to have an abnormality involving the pancreas and he states that a biopsy in 2017 was negative, but he will continue to require followup with his vessel scrapper, Dr. Diaz. MEDICATIONS PRIOR TO ADMISSION: 1. Alfuzosin 10 mg a day. 2. Amlodipine 5 mg once a day. 3. Apixaban 5 mg a day. 4. Lipitor 40 mg a day. 5. B12. 6. Dutasteride 0.5 mg a day. 7. Metoprolol 25 mg a day. 8. Protonix 40 mg a day. 9. Multivitamins. ALLERGIES: SULFA CAUSED A RASH. WHEN HE WAS VERY YOUNG HE WAS GIVEN DEMEROL AND VALIUM AND HAD EITHER SYNCOPE OR AN ARREST, AND WAS TOLD THAT HE MIGHT HAVE AN ALLERGY. REVIEW OF SYSTEMS: VISION: He has glasses. Hearing is decreased. CARDIOVASCULAR: No chest pain, palpitations, orthopnea, PND. RESPIRATORY: No shortness of breath. GASTROINTESTINAL: There has been a 40-pound weight loss over the past year. He and his have changed their diet and she has lost 30 pounds during this time. He denies any loss of appetite. GENITOURINARY: No dysuria or frequency. MUSCULOSKELETAL: Severe lower back pain. NEUROLOGIC: Lower back pain with radiation down both legs, left more than right. SKIN: No immediate problems. PSYCHIATRIC: No immediate problems. PHYSICAL EXAMINATION: GENERAL: Reveals a gentleman who appears well, except for some discomfort when he tries to sit and move about due to the lower back pain. VITAL SIGNS: Blood pressure 150/80, respiratory rate 16, pulse 72, afebrile. O2 saturation 96%. HEENT: Head is normocephalic. Sclerae and conjunctivae are normal. Oropharynx unremarkable. NECK: There is no cervical, supraclavicular, axillary or inguinal adenopathy. HEART: Regular rate and rhythm. Occasional premature beat. LUNGS: Clear, without rales, wheezes or rhonchi. ABDOMEN: Without hepatosplenomegaly or masses. EXTREMITIES: Trace edema. MUSCULOSKELETAL: There is tenderness of the lower back. NEUROLOGIC: No focal weakness. Cognition and affect normal. SKIN: Unremarkable. ASSESSMENT: The patient is an 82-year-old male who was found on a CAT scan of the lumbosacral spine to have a lytic lesion involving L3 and probable pathologic compression fracture of L1. The radiographic differential suggests myeloma or metastatic disease. The CAT scan of the abdomen and pelvis reveals no primary. This is a gentleman who has had extensive exposure to asbestos in the past. Under these circumstances malignancy is a high consideration. PLAN: 1. The patient will have basic marker. Studies will include the appropriate tests for myeloma, CEA, a CA 19-9 given his previous history of an abnormality involving the pancreas, and a PSA which would be unlikely to be positive as we are looking at a lytic lesion and not a blastic lesion. 2. He will have an MRI of the LS spine with gadolinium as I am concerned with the fact that the pain radiates down the legs, and would like to have a close look at the cauda equina. He will also have a CT scan of the thorax without contrast given his history of exposure to asbestos. Orders have been written for the laboratory tests, CT thorax, and MRI of the LS spine with contrast. He may eventually come to a needle biopsy of L3 but not presently. MD JES Ann/MAICOL , 11:06 AM , 11:38 AM MTDD
[2017-11-25] MEDS ORDERED: GADODIAMIDE PF 287 MG/ML 20 ML VIAL (for RAD MRI) IVCONTRAST ONE (14:37)
--- NOTE | 2017-11-25 15:45 | RADRPT ---
EXAM DATE: 11/25/2017 2:49 PM EDT AGE/SEX: 82 years / Male INDICATIONS: . Chronic low back pain. CLINICAL DATA: This is the patient's initial encounter. Patient reports that signs and symptoms have been present for 2 days and indicates a pain score of 3/10. MEDICAL/SURGICAL HISTORY: Carcinoma, skin cancer. Afib, polycystic kidneys, BPH. Appendectomy. Inguinal hernia repair. Cholecystectomy. tonsillectomy, melanoma,right knee replacement. COMPARISON: No prior exams available for comparison. TECHNIQUE: Multiplanar, multisequence MRI examination of the lumbar spine was performed without and with 20 ml Omniscan (gadodiamide) contrast as a single exam dose. FINDINGS: The most caudal-appearing lumbar vertebra is numbered as L5. There is grade 1 anterolisthesis of L5 with respect to S1 with associated bilateral pars defects, sim ilar to prior CT. CT scan had demonstrated lytic destruction of L3 and a greater than 75% compression deformity of L1. The MRI is abnormal demonstrating 75% compression deformity of the L1 vertebral body with some mild T 2 prolongation and mild enhancement in the residual been marrow. The posterior cortex of the vertebra l body is in normal alignment. At L2, there is a focal signal abnormality in the posterior inferior right vertebral body measuring 2 cm with T1 and T2 prolongation and uniform contrast enhancement. The vertebral body is normal in hei ght and no expansion of the posterior cortex. At L3, there is a focal 50% central compression deformity of the superior endplate and diffuse abnorm al signal throughout the entire vertebral body characterized by T1 and T2 prolongation. On the postco ntrast study, there is diffuse increased enhancement seen in the vertebral body and indicates left pe dicle. There is also extra osseous enhancing soft tissue causing flattening of the ventral margin of the thecal sac with thecal sac measuring 5 mm at its narrowest point. Soft tissue enhancement also ex tends and replaces the left neural foramen. There is some mild enhancement in the marrow of the right pedicle without evidence of destruction or extraosseous soft tissue. At L4 and L5, there is homogeneous signal in the marrow and normal morphology of the vertebral body. No enhancement. The bony neural foramina remains patent at the L5-S1 level despite the anterolisthesi s and pars defects. CONCLUSION: Multifocal signal abnormalities characteristic of a neoplastic process involving the marrow. Areas of involvement include the L1 vertebral body with associated compression deformity), posterior inferior L2, and L3. The L3 involvement extends into the pedicles bilaterally and there is evidence of extrao sseous soft tissue extension about the left and posterior L3 vertebral body with soft tissue extensio n replacing the left neural foramen. Electronically signed by: Roly Escobar MD 11/25/2017 3:44 PM EDT
[2017-11-25] MEDS ORDERED: MIRA3350 PO (15:58)
[2017-11-25 16:16] LABS: KAPPA LAMBDA RATIO 2.02 (1.57-3.93)
[2017-11-25 16:28] LABS: CARCINOEMBRYONIC ANTIGEN 2.6 NG/ML (0.2-5.0)
--- NOTE | 2017-11-25 17:02 | RADRPT ---
EXAM DATE: 11/25/2017 4:52 PM EDT AGE/SEX: 82 years / Male INDICATIONS: Evaluate for mass. CLINICAL DATA: This is the patient's subsequent encounter. Patient reports that signs and symptoms h ave been present for 2 days and indicates a pain score of 0/10. MEDICAL/SURGICAL HISTORY: Cardiovascular disease. Hypertension. Polycystic kidney. Appendectomy. Cholecystectomy. RADIATION DOSE: 19.08 CTDI (mGy) COMPARISON: [facility], CT ABDOMEN & PELVIS W CONTRAST, 02/23/2017. . TECHNIQUE: Multiple contiguous axial images were obtained through the chest without contrast. Image s were obtained in suspended respiration using multiple row detector helical technique. Using automa rena exposure control and adjustment of the mA and/or kV according to patient size, radiation dose was kept as low as reasonably achievable to obtain optimal diagnostic quality images. FINDINGS: There is a 2 cm nodule in the anterior segment of the right upper lobe which is a slightly irregular margin. This could represent a primary lung malignancy or metastatic lesion. There are numerous other subcentimeter nodules in both lungs which are more characteristic of metastatic disease. No patholog ically enlarged nodes are identified in the melissa, mediastinum or axillary region. There are mild raegan nary calcifications. There is minimal basilar dependent atelectasis in the lungs. See recent abdomen CT for findings below the diaphragm. There is a severe compression deformity of L1 which may be pathologic and related to bony metastatic disease. CONCLUSION: 1. Numerous subcentimeter lung nodules characteristic of metastatic disease. There is also a slightl y irregular 2 cm nodule anterior segment right upper lobe that could represent primary lung malignanc y or metastatic disease. 2. No adenopathy or significant effusion. Probable pathologic severe compression deformity at L1. Electronically signed by: Anand Emery MD 11/25/2017 5:01 PM EDT
[2017-11-25 17:05] LABS: CA 19-9 27.4 U/ML (0.0-35.0)
[2017-11-25] MEDS: PROCHLORPERAZINE INJ 10 MG/2 ML VIAL IV PUSH PRN (18:08)
[2017-11-25] MEDS: ACETAMINOPHEN/HYDROcodone 325 MG/10 MG TAB PO PRN (20:55)
[2017-11-25] MEDS: ATORVASTATIN 40 MG TAB PO SCH (21:24)
[2017-11-25] MEDS ORDERED: HYDROmorphone HCL PF 0.5 MG/0.5 ML SYRINGE IV PUSH ONE (22:45)
[2017-11-25] MEDS: METOCLOPRAMIDE HCL 10 MG/2 ML VIAL IV PUSH PRN (23:04)
[2017-11-26] VITALS (7 sets, daily range): BP systolic 107–181; BP diastolic 57–91; PULSE 67–84; RESP 18–23; TEMP 97–98.7; O2SAT 92–97
[2017-11-26] MEDS: ACETAMINOPHEN/HYDROcodone 325 MG/10 MG TAB PO PRN ×4 (05:37→21:53)
[2017-11-26] MEDS: TAMSULOSIN HCL 0.4 MG CAP PO SCH (08:20)
[2017-11-26] MEDS: CYANOCOBALAMIN 1,000 MCG TAB PO SCH (08:20)
[2017-11-26] MEDS: amLODIPine BESYLATE 5 MG TAB PO SCH (08:20)
[2017-11-26] MEDS: METOPROLOL TARTRATE 25 MG TAB PO SCH (08:20)
[2017-11-26] MEDS: FINASTERIDE 5 MG TAB PO SCH (08:20)
[2017-11-26] MEDS: DOCUSATE SODIUM 50 MG/SENNA 8.6 MG TAB PO SCH ×2 (08:20→21:54)
[2017-11-26] MEDS: METOCLOPRAMIDE HCL 10 MG/2 ML VIAL IV PUSH PRN ×2 (08:21→16:34)
[2017-11-26] MEDS: traMADol HCL 50 MG TAB PO SCH ×2 (08:21→21:53)
[2017-11-26] MEDS: POLYETHYLENE GLYCOL 17 GM PKG PO SCH (08:22)
[2017-11-26] MEDS: SODIUM CHLORIDE 0.9% FLUSH 10 ML FLUSH IV FLUSH SCH ×2 (08:22→21:52)
[2017-11-26] MEDS: ACETAMINOPHEN/HYDROcodone 325 MG/5 MG TAB PO PRN (09:27)
--- NOTE | 2017-11-26 13:07 | PD.CONS ---
Consult Service Palliative Care Consult Requested By Primary Care Physician Simon Raygoza MD Reason for Consultation a. To assist with evaluation and management of symptoms including: b. To assist medical decision maker(s) with: better understanding of current medical conditions; weighing benefits/burdens of medical treatment options; making medical treatment decisions. HPI History of Present Illness Patient is an 82 year old who presented to [place] ED on 11/24/17 with complaints of back pain. Apparently the patient has a history of chronic back pain with multiple compression fractures involving the lower back; he was evaluated by Dr. Cat in 2017 but has not required any neurosurgical interventions. The patient's pain has progressively increased over the last 2 months becoming much worse in the past few days. Pain is located in the lumbar spine (left >right) and radiates to the legs bilaterally (left greater than sign right). he denied any recent trauma or injury. Pain is improved with IV morphine. Denies recent fever, incontinence, abdominal pain, saddle anesthesia , paresthesia or weakness of extremities. Pain is exacerbated with movement and again relieved with morphine and rest. Additional diagnostic data: * Vital signs: Pulse 81, respiration 16, BP 147/75, oxygen saturation 97% on room air and oral temperature of 98.2 * WBC: 9.6, hemoglobin 13.9, hematocrit 41.9, platelets 259, neutrophils 58.6% * Sodium: 139, potassium 3.9, chloride 105, glucose 94, calcium 9.1 * CT abdomen/pelvis showing lytic bone destruction of L3 with likely pathologic features of L3 and L1. Primary differential diagnostic is metastatic disease or myeloma. * CT lumbar spine revealed osteopenia with lytic bone destruction at L3 and probable pathologic severe compression fracture of L1. Primary differential diagnostic is metastatic disease or myeloma. Patient was for further evaluation. Oncology was consulted. Patient has a previous history of malignancy, having undergone resection of a melanoma from the right neck in 2012. His last chest x-ray was in 2007. Dr. Fink evaluated the patient and made recommendations for further testing. = An MRI of the spine showed multifocal signal abnormalities characteristic of a neoplastic process involving the marrow. Areas of involvement include the L1 vertebral body with associated compression deformity, posterior inferior L2 and L3; the L3 involvement extends into the pedicles bilaterally and there is evidence of extraosseous soft tissue extension into the left and posterior L3 vertebral body with soft tissue extension replacing the left neural foramen = CT of the thorax/chest showed numerous subcentimeter lung nodules characteristic of metastatic disease. There was also a slightly irregular 2 cm nodule anterior segment right upper lobe that could represent primary lung malignancy or metastatic disease. No adenopathy or significant effusion. Probable pathological severe compression deformity at L1. = CEA: 2.6; CA 19-927.4; PSA 0.87 . Past Family Social History Coded Allergies: Sulfa (Sulfonamide Antibiotics) (Verified Allergy, Severe, Hives, 11/24/17) adhesive tape (Verified Allergy, Severe, Rash, 11/24/17) bacitracin (Verified Allergy, Severe, Rash, 11/24/17) polymyxin B (Verified Allergy, Severe, Rash, 11/24/17) diazepam (Unverified Adverse Reaction, Severe, "Cardiac arrest", 11/24/17) Past Medical History Atrial fibrillation Hypertension Elevated cholesterol Melanoma, right neck Polycystic kidney disease Benign prostatic hyperplasia Sleep apnea . Past Surgical History Hernia repair Appendectomy Cataract surgery Prostate surgery Right knee surgery Skin surgery for melanoma right neck Cholecystectomy Tonsillectomy Carpal tunnel surgery bilaterally . Current Medications Medications (Trade) Dose Ordered Sig/Se Route Start Time Stop Time Status Last Admin (NS Flush) 2 ml UNSCH PRN IV FLUSH 11/24/17 20:00 (NS Flush) 2 ml BID IV FLUSH 11/24/17 21:00 11/26/17 08:22 (Reglan Inj) 5 mg Q6H PRN IV PUSH 11/24/17 20:00 11/26/17 08:21 (Tylenol) 650 mg Q6H PRN PO 11/24/17 20:00 ([place] 5-325 Mg) 1 tab Q4H PRN PO 11/24/17 20:00 11/26/17 09:27 (Jelly-Colace) 1 tab BID PO 11/24/17 21:00 11/26/17 08:20 (Milk Of Magnesia Liq) 30 ml Q12H PRN PO 11/24/17 20:00 (Senokot) 17.2 mg Q12H PRN PO 11/24/17 20:00 (Dulcolax Supp) 10 mg DAILY PRN RECTAL 11/24/17 20:00 (Lactulose Liq) 30 ml DAILY PRN PO 11/24/17 20:00 (Norvasc) 5 mg DAILY PO 11/25/17 09:00 11/26/17 08:20 (Lipitor) 40 mg HS PO 11/24/17 21:00 11/25/17 21:24 (Vitamin B12) 1,000 mcg DAILY PO 11/25/17 09:00 11/26/17 08:20 (Lopressor) 25 mg DAILY PO 11/25/17 09:00 11/26/17 08:20 (Flomax) 0.4 mg DAILY PO 11/25/17 09:00 11/26/17 08:20 (Proscar) 5 mg DAILY PO 11/25/17 09:00 11/26/17 08:20 (Compazine Inj) 10 mg Q6H PRN IV PUSH 11/24/17 21:45 11/25/17 18:08 (Ultram) 50 mg Q12H PO 11/25/17 10:00 11/26/17 08:21 (Miralax) 17 gm DAILY PO 11/26/17 09:00 11/26/17 08:22 ([place] 10-325 Mg) 1 tab Q4H PRN PO 11/25/17 20:30 11/26/17 05:37 Family History Familiar history of hypertension. . Substance Use Tobacco: Brief smoking history, approximately 5 years when he was young Alcohol: No history of excessive alcohol use Prescription med abuse: None known Illicits: None unknown . Psychosocial History Patient was born in [place]. 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 Patient has been twice. He has 3 adult children , 2 daughters and a son. . Spiritual/Cultural Factors Baptist kate . Physical Exam Vital Signs Date Time Temp Pulse Resp B/P (MAP) Pulse Ox O2 Delivery O2 Flow Rate FiO2 11/26/17 12:00 97.0 69 23 181/91 (121) 95 11/26/17 09:02 92 21 11/26/17 08:00 98.7 67 21 151/67 (95) 94 11/26/17 00:18 97.4 70 18 107/57 (74) 95 11/25/17 20:39 97.0 66 20 135/76 (95) 94 11/25/17 19:30 94 21 11/25/17 16:00 97.5 63 18 120/67 (84) 97 11/25/17 14:49 96 11/26/17 11/27/17 19:00 07:00 Intake Total 120 ml Balance 120 ml Intake Oral 120 ml Exam CONSTITUTIONAL/GENERAL: This is an adequately nourished patient, in no apparent distress. TUBES/LINES/DRAINS: SKIN: No jaundice, rashes, or lesions. Ecchymoses on upper extremities. No wounds seen anteriorly. Skin temperature appropriate. Not diaphoretic. HEAD: Atraumatic. Normocephalic. EYES: Pupils equal and round and reactive. Extraocular motions intact. No scleral icterus. No injection or drainage. Fundi not examined. ENT: Hearing grossly normal. Nose without bleeding or purulent drainage. Throat without visible erythema, exudates, masses, or lesions. NECK: Trachea midline. Supple, nontender. No palpable thyroid enlargement or nodularity. CARDIOVASCULAR: Regular rate and rhythm without murmurs, gallops, or rubs. No JVD. Peripheral pulses symmetric. RESPIRATORY/CHEST: Symmetric, unlabored respirations. Clear to auscultation. Breath sounds equal bilaterally. No wheezes, rales, or rhonchi. GASTROINTESTINAL: Abdomen soft, non-tender, nondistended. No hepato-splenomegaly , or palpable masses. No guarding. Bowel sounds present. GENITOURINARY: Without palpable bladder distension. [place] catheter in place. MUSCULOSKELETAL: Extremities without clubbing, cyanosis, or edema. No joint tenderness or effusion noted. No calf tenderness. No mottling or clubbing. LYMPHATICS: No palpable cervical or supraclavicular adenopathy. NEUROLOGICAL: Awake and alert. Motor and sensory grossly within normal limits. Follows commands. Cognitively sharp. Moves all extremities. PSYCHIATRIC: No obvious anxiety/depression. no apparent hallucinations or other psychotic thought process. Diagnostic Tests Laboratory Laboratory Tests Test 11/24/17 18:00 11/25/17 06:11 11/25/17 12:18 White Blood Count 9.6 TH/MM3 (4.0-11.0) 8.0 TH/MM3 (4.0-11.0) Red Blood Count 4.84 MIL/MM3 (4.50-5.90) 4.59 MIL/MM3 (4.50-5.90) Hemoglobin 13.9 GM/DL (13.0-17.0) 13.3 GM/DL (13.0-17.0) Hematocrit 41.9 % (39.0-51.0) 39.7 % (39.0-51.0) Mean Corpuscular Volume 86.5 FL (80.0-100.0) 86.6 FL (80.0-100.0) Mean Corpuscular Hemoglobin 28.8 PG (27.0-34.0) 28.9 PG (27.0-34.0) Mean Corpuscular Hemoglobin Concent 33.3 % (32.0-36.0) 33.3 % (32.0-36.0) Red Cell Distribution Width 13.4 % (11.6-17.2) 13.4 % (11.6-17.2) Platelet Count 259 TH/MM3 (150-450) 218 TH/MM3 (150-450) Mean Platelet Volume 8.5 FL (7.0-11.0) 8.6 FL (7.0-11.0) Neutrophils (%) (Auto) 58.6 % (16.0-70.0) 59.2 % (16.0-70.0) Lymphocytes (%) (Auto) 30.6 % (9.0-44.0) 29.2 % (9.0-44.0) Monocytes (%) (Auto) 6.4 % (0.0-8.0) 8.4 % (0.0-8.0) Eosinophils (%) (Auto) 2.9 % (0.0-4.0) 2.3 % (0.0-4.0) Basophils (%) (Auto) 1.5 % (0.0-2.0) 0.9 % (0.0-2.0) Neutrophils # (Auto) 5.7 TH/MM3 (1.8-7.7) 4.7 TH/MM3 (1.8-7.7) Lymphocytes # (Auto) 2.9 TH/MM3 (1.0-4.8) 2.3 TH/MM3 (1.0-4.8) Monocytes # (Auto) 0.6 TH/MM3 (0-0.9) 0.7 TH/MM3 (0-0.9) Eosinophils # (Auto) 0.3 TH/MM3 (0-0.4) 0.2 TH/MM3 (0-0.4) Basophils # (Auto) 0.1 TH/MM3 (0-0.2) 0.1 TH/MM3 (0-0.2) CBC Comment DIFF FINAL DIFF FINAL Differential Comment Blood Urea Nitrogen 18 MG/DL (7-18) 17 MG/DL (7-18) Creatinine 0.99 MG/DL (0.60-1.30) 0.85 MG/DL (0.60-1.30) Random Glucose 94 MG/DL (74-106) 91 MG/DL (74-106) Calcium Level 9.1 MG/DL (8.5-10.1) 8.6 MG/DL (8.5-10.1) Sodium Level 139 MEQ/L (136-145) 141 MEQ/L (136-145) Potassium Level 3.9 MEQ/L (3.5-5.1) 3.6 MEQ/L (3.5-5.1) Chloride Level 105 MEQ/L (98-107) 107 MEQ/L (98-107) Carbon Dioxide Level 22.4 MEQ/L (21.0-32.0) 24.6 MEQ/L (21.0-32.0) Anion Gap 12 MEQ/L (5-15) 9 MEQ/L (5-15) Estimat Glomerular Filtration Rate 72 ML/MIN (>89) 86 ML/MIN (>89) Erythrocyte Sedimentation Rate 44 mm/hr (0-20) Total Protein 6.4 GM/DL (6.4-8.2) Albumin 2.8 GM/DL (3.4-5.0) Alkaline Phosphatase 111 U/L (45-117) Aspartate Amino Transf (AST/SGOT) 15 U/L (15-37) Alanine Aminotransferase (ALT/SGPT) 17 U/L (12-78) Total Bilirubin 0.6 MG/DL (0.2-1.0) C-Reactive Protein 3.88 MG/DL (0.00-0.30) Vitamin B12 Level GREATER THAN 2000 PG/ML Thyroid Stimulating Hormone 3rd Gen 1.730 uIU/ML (0.358-3.740) Carcinoembryonic Antigen 2.6 NG/ML (0.2-5.0) CA 19-9 Antigen 27.4 U/ML (0.0-35.0) Prostate Specific Antigen 0.87 NG/ML (0.00-4.00) Immunoglobulin G Total 851 MG/DL (690-1690) Immunoglobulin A 193 MG/DL (107-591) Immunoglobulin M 149 MG/DL (37-225) Immunoglobulin [place]/Lambda Ratio 2.02 (1.57-3.93) [place] Light Chain Analysis 222 MG/DL (170-370) Lambda Light Chain Analysis 110 MG/DL (90-210) Result Diagram: 11/25/17 0611 11/25/17 0611 Patient/Family Conference Issues Discussed: * Palliative care role, purpose, approach * Additional medical, psychosocial, and spiritual history * Patients general health, functional status, and cognitive changes in the months leading up to the current hospitalization * Patient/family understanding of the current medical problems * Patient/family understanding of prognosis * Patients goals of care as best understood from advance directives and/or conversations and/or values * Current medical treatment options and benefits/burdens of those options * Likely scenarios comparing ongoing aggressive care with a transition to comfort measures only * Questions answered to the best of my ability * Palliative care contact information provided Assessment and Plan Pertinent Non-Medical Issues Psychosocial: Patient was born in [place]. He worked as a [employer] and had extensive exposure to asbestos. Patient has been twice. He has 3 adult children, 2 daughters and a son. Spiritual: [employer] kate Legal: Per [place] statutes, in the absence of written advanced directives healthcare proxy decision making would fall to the patient's (Rebeca) Ethical issues impacting care: No known ethical issues impacting care at this time. . Code Status: Full Code Thank you for the opportunity to participate in the care of Mr. Catherine. Angelita Beckman Nov 26, 2017 13:07
--- NOTE | 2017-11-26 13:19 | HHI.PR ---
Subjective Remarks he seen and evaluated today in follow-up for back pain which is progressive and relieved current regimen. Significant findings on imaging discussed with patient and spouse. Patient would like to go home with outpatient follow-up. Will discuss with hematology regarding plan of care Discussed with radiology who recommended vertebral biopsy and kyphoplasty Patient and family agreeable Patient has been on Eliquis for A. fib Objective Vitals Vital Signs Date Time Temp Pulse Resp B/P (MAP) Pulse Ox O2 Delivery O2 Flow Rate FiO2 11/26/17 12:00 97.0 69 23 181/91 (121) 95 11/26/17 09:02 92 21 11/26/17 08:00 98.7 67 21 151/67 (95) 94 11/26/17 00:18 97.4 70 18 107/57 (74) 95 11/25/17 20:39 97.0 66 20 135/76 (95) 94 11/25/17 19:30 94 21 11/25/17 16:00 97.5 63 18 120/67 (84) 97 11/25/17 14:49 96 I/O 11/25/17 11/25/17 11/25/17 11/26/17 11/26/17 11/26/17 07:00 15:00 23:00 07:00 15:00 23:00 Intake Total 60 ml 500 ml 600 ml 480 ml 120 ml Output Total 550 ml 750 ml Balance -490 ml 500 ml 600 ml -270 ml 120 ml Intake Oral 60 ml 600 ml 480 ml 120 ml IV Total 500 ml Output Urine Total 550 ml 750 ml # Voids 2 5 # Bowel Movements 0 Result Diagram: 11/25/17 0611 11/25/17 0611 Imaging Last Impressions Lumbar Spine MRI 11/25/17 0000 Signed Impressions: CONCLUSION: Multifocal signal abnormalities characteristic of a neoplastic process involvin g the marrow. Areas of involvement include the L1 vertebral body with associate d compression deformity), posterior inferior L2, and L3. The L3 involvement ext ends into the pedicles bilaterally and there is evidence of extraosseous soft t issue extension about the left and posterior L3 vertebral body with soft tissue extension replacing the left neural foramen. Chest CT 11/25/17 0000 Signed Impressions: CONCLUSION: 1. Numerous subcentimeter lung nodules characteristic of metastatic disease. T here is also a slightly irregular 2 cm nodule anterior segment right upper lobe that could represent primary lung malignancy or metastatic disease. 2. No adenopathy or significant effusion. Probable pathologic severe compressi on deformity at L1. Lumbar Spine CT 11/24/[id number] Signed Impressions: CONCLUSION: 1. Osteopenia with lytic bone destruction at L3 and probable pathologic severe compression fracture of L1. Primary differential diagnosis is myeloma or metas tatic disease. 2. Multilevel canal stenosis as above. 3. Grade 1 anterolisthesis of L5 on S1 with severe bilateral foraminal stenosi s. Abdomen/Pelvis CT [id number]/[id number] Signed Impressions: CONCLUSION: 1. Lytic bone destruction of L3 with likely pathologic fractures of L3 and L1. Primary differential diagnosis is metastatic disease or myeloma. 2. Stable appearance of bilateral renal cysts, nonobstructing renal calculi an d hepatic cysts February 2017. Objective Remarks GENERAL: This is a well-nourished, well-developed patient, in no apparent distress. CARDIOVASCULAR: Regular rate and rhythm without murmurs, gallops, or rubs. RESPIRATORY: Clear to auscultation. Breath sounds equal bilaterally. No wheezes , rales, or rhonchi. GASTROINTESTINAL: Abdomen soft, non-tender, nondistended. Normal active bowel sounds MUSCULOSKELETAL: Extremities without clubbing, cyanosis, or edema. NEURO: Alert & Oriented x4 to person, place, time, situation. Moves all ext x4 A/P Problem List: (1) Afib ICD Code: I48.91 - Unspecified atrial fibrillation Plan: Patient on Eliquis which has been held since admission Continue metoprolol Rate is controlled (2) Pathologic compression fracture of lumbar vertebra ICD Code: M48.56XA - Collapsed vertebra, not elsewhere classified, lumbar region, initial encounter for fracture Status: Acute Plan: Patient with multiple lesions on the spine Follow-up with NSGY Continue with pain management Patient would like to have conservative management at this time (3) Intractable back pain ICD Code: M54.9 - Dorsalgia, unspecified Status: Acute Plan: Continue with tramadol Outpatient pain management follow-up pending Probable pathological fracture, (4) HTN (hypertension) ICD Code: I10 - Essential (primary) hypertension Plan: Controlled on metoprolol and amlodipine Discharge Planning Transfer to [facility] Problem Qualifiers (1) Pathologic compression fracture of lumbar vertebra: Qualified Codes: M48.56XA - Collapsed vertebra, not elsewhere classified, lumbar region, initial encounter for fracture Susy Cooley MD Nov 26, 2017 13:19
[2017-11-26 17:22] LABS: PROTHROMBIN TIME - PATIENT 10.1 SEC (9.8-11.6)
[2017-11-26] MEDS: ATORVASTATIN 40 MG TAB PO SCH (21:52)
[2017-11-27] VITALS (7 sets, daily range): BP systolic 104–172; BP diastolic 63–95; PULSE 52–68; RESP 16–20; TEMP 97.3–98.7; O2SAT 92–96
[2017-11-27] MEDS: ACETAMINOPHEN/HYDROcodone 325 MG/10 MG TAB PO PRN ×4 (02:23→20:40)
[2017-11-27] MEDS ORDERED: POVIDONE IODINE 5% (ANTISEPSIS KIT) 4 APPLICATIONS EACH NARE PRN (04:30)
[2017-11-27] MEDS ORDERED: CHLORHEXIDINE GLUCONATE 2 % 1 PACK (2 CLOTHS) TOPICAL PRN (04:30)
[2017-11-27] MEDS ORDERED: LACTATED RINGER'S 1000 ML IV PRN (04:30)
[2017-11-27] MEDS ORDERED: SODIUM CHLORID 0.9% 500 ML IV PRN (04:30)
[2017-11-27] MEDS: POLYETHYLENE GLYCOL 17 GM PKG PO SCH (09:00)
--- NOTE | 2017-11-27 09:07 | PD.CONS ---
HPI Consult Requested By Primary Care Physician Simon Raygoza MD Past Family Social History Allergies: Coded Allergies: Sulfa (Sulfonamide Antibiotics) (Verified Allergy, Severe, Hives, 11/24/17) adhesive tape (Verified Allergy, Severe, Rash, 11/24/17) bacitracin (Verified Allergy, Severe, Rash, 11/24/17) polymyxin B (Verified Allergy, Severe, Rash, 11/24/17) diazepam (Unverified Adverse Reaction, Severe, "Cardiac arrest", 11/24/17) Active Ordered Medications Current Medications Morphine Sulfate (Morphine Inj) 2 mg ONCE ONCE IM Last administered on at 17:08; Start 11/24/17 at 17:00; Stop 11/24/17 at 17:01; Status DC Ondansetron HCl (Zofran Odt) 4 mg ONCE ONCE PO Last administered on at 17:07; Start 11/24/17 at 17:00; Stop 11/24/17 at 17:01; Status DC Hydromorphone HCl (Dilaudid Pf Inj) 0.5 mg ONCE ONCE IVS ; Start 11/24/17 at 17 :45; Stop 11/24/17 at 17:46; Status Cancel Hydromorphone HCl (Dilaudid Pf Inj) 0.5 mg ONCE ONCE IV PUSH Last administered on 11/24/17at 17:47; Start 11/24/17 at 17:45; Stop 11/24/17 at 17:46 ; Status DC Iohexol (Omnipaque 350 Inj) 90 ml STK-MED ONCE IVCONTRAST Last administered on 11/24/17at 19:12; Start 11/24/17 at 19:12; Stop 11/24/17 at 19:13; Status DC Hydromorphone HCl (Dilaudid Pf Inj) 1 mg ONCE ONCE IV PUSH ; Start 11/24/17 at 19:30; Stop 11/24/17 at 19:31; Status Cancel Hydromorphone HCl (Dilaudid Pf Inj) 1 mg ONCE ONCE IV PUSH Last administered on 11/24/17at 19:35; Start 11/24/17 at 19:45; Stop 11/24/17 at 19:46; Status DC Sodium Chloride 1,000 ml @ 100 mls/hr Q10H IV Last administered on 11/25/17at 06:10; Start 11/24/17 at 19:52; Stop 11/25/17 at 09:14; Status DC Sodium Chloride (NS Flush) 2 ml UNSCH PRN IV FLUSH FLUSH AFTER USING IV ACCESS ; Start 11/24/17 at 20:00 Sodium Chloride (NS Flush) 2 ml BID IV FLUSH Last administered on 11/26/17at 21: 52; Start 11/24/17 at 21:00 Metoclopramide HCl (Reglan Inj) 5 mg Q6H PRN IV PUSH NAUSEA OR VOMITING Last administered on 11/26/17at 16:34; Start 11/24/17 at 20:00 Acetaminophen (Tylenol) 650 mg Q6H PRN PO FEVER/PAIN SCALE 1 TO 2; Start at 20:00 Acetaminophen/ Hydrocodone Bitart (Lander 5-325 Mg) 1 tab Q4H PRN PO PAIN SCALE 3 TO 5 Last administered on 11/26/17at 09:27; Start 11/24/17 at 20:00 Morphine Sulfate (Morphine Inj) 2 mg Q3H PRN IV PUSH Pain 6-10 Last administered on 11/25/17at 06:10; Start 11/24/17 at 20:00; Stop 11/25/17 at 09:14 ; Status DC Senna/Docusate Sodium (Jelly-Colace) 1 tab BID PO Last administered on at 21:54; Start 11/24/17 at 21:00 Magnesium Hydroxide (Milk Of Magnesia Liq) 30 ml Q12H PRN PO Mild constipation ; Start 11/24/17 at 20:00 Sennosides (Senokot) 17.2 mg Q12H PRN PO Moderate constipation; Start 11/24/17 at 20:00 Bisacodyl (Dulcolax Supp) 10 mg DAILY PRN RECTAL SEVERE CONSITIPATION; Start at 20:00 Lactulose (Lactulose Liq) 30 ml DAILY PRN PO SEVERE CONSITIPATION; Start at 20:00 Amlodipine Besylate (Norvasc) 5 mg DAILY PO Last administered on 11/26/17 08: 20; Start 11/25/17 at 09:00 Atorvastatin Calcium (Lipitor) 40 mg HS PO Last administered on 11/26/17at 21:52 ; Start 11/24/17 at 21:00 Cyanocobalamin (Vitamin B12) 1,000 mcg DAILY PO Last administered on 11/26/17 08:20; Start 11/25/17 at 09:00 Metoprolol Tartrate (Lopressor) 25 mg DAILY PO Last administered on 11/26/17 08:20; Start 11/25/17 at 09:00 Tamsulosin HCl (Flomax) 0.4 mg DAILY PO Last administered on 11/26/17 08:20; Start 11/25/17 at 09:00 Finasteride (Proscar) 5 mg DAILY PO Last administered on 11/26/17 08:20; Start 11/25/17 at 09:00 Prochlorperazine Edisylate (Compazine Inj) 10 mg Q6H PRN IV PUSH NAUSEA/ VOMITING Last administered on 11/25/17at 18:08; Start 11/24/17 at 21:45 Tramadol HCl (Ultram) 50 mg Q12H PO Last administered on 11/26/17 21:53; Start 11/25/17 at 10:00 Gadodiamide (Omniscan Pf Inj) 20 ml STK-MED ONCE IVCONTRAST Last administered on 11/25/17at 14:37; Start 11/25/17 at 14:37; Stop 11/25/17 at 14:38; Status DC Polyethylene Glycol (Miralax) 17 gm DAILY PO Last administered on 11/26/17 08: 22; Start 11/26/17 at 09:00 Acetaminophen/ Hydrocodone Bitart ([place]ander 10-325 Mg) 1 tab Q4H PRN PO PAIN SCALE 6 TO 10 Last administered on 11/27/17at 07:22; Start 11/25/17 at 20:30 Hydromorphone HCl (Dilaudid Pf Inj) 0.5 mg ONCE ONCE IV PUSH Last administered on 11/25/17at 23:04; Start 11/25/17 at 22:45; Stop 11/25/17 at 22:58 ; Status DC Lactated Ringer's 1,000 ml @ 30 mls/hr Q24H PRN IV SEE LABEL COMMENTS; Start at 04:30; Stop 11/30/17 at 04:29 Sodium Chloride 500 ml @ 30 mls/hr [id number] PRN IV SEE LABEL COMMENTS; Start at 04:30; Stop 11/30/17 at 04:29 Povidone Iodine (Betadine 5% Antisepsis Kit) 1 applic [employer] PRN EACH NARE SEE LABEL COMMENTS; Start 11/27/17 at 04:30; Stop 11/30/17 at 04:29 Chlorhexidine Gluconate (Chlorhexidine 2% Cloth) 3 pack [employer] PRN TOPICAL SEE LABEL COMMENTS; Start 11/27/17 at 04:30; Stop 11/30/17 at 04:29 Physical Exam Vital Signs Vital Signs Date Time Temp Pulse Resp B/P (MAP) Pulse Ox O2 Delivery O2 Flow Rate FiO2 11/27/17 08:14 98.3 66 18 159/95 (116) 94 11/27/17 05:11 97.8 67 18 135/63 (87) 93 11/27/17 03:23 18 11/27/17 01:02 98.7 65 18 129/66 (87) 94 11/26/17 23:38 21 11/26/17 22:57 18 11/26/17 20:18 97.8 84 18 144/79 (100) 93 11/26/17 16:40 97.8 72 18 180/86 (117) 97 11/26/17 15:00 138/78 (98) 11/26/17 12:00 97.0 69 23 181/91 (121) 95 Laboratory Laboratory Tests Test 11/26/17 16:46 Prothrombin Time 10.1 Prothromb Time International Ratio 1.0 Activated Partial Thromboplast Time 32.1 Result Diagram: 11/25/17 0611 11/25/17 06 Attending Statement I reviewed his CT and his MRI of the lumbar spine. He seems to have metastatic disease Casey Cat MD Nov 27, 2017 09:07
--- NOTE | 2017-11-27 09:11 | PD.CONS ---
(Casey Cat MD) HPI Consult Requested By Primary Care Physician Simon Raygoza MD (Casey Cat MD) Service Neurosurgery Consult Requested By Dr. Brooke Reason for Consult Compression Fracture History of Present Illness Mr. Catherine is a 82 year old male who presents to [facility] for intractable low back pain. Mr. Catherine has a history of chronic back pain in which he undergoes physical therapy. However over the past 2 months his pain has been getting worse and much worse over the last several days. He denies any associated trauma or falls. He reports his pain is located in the lower back with pain also radiating down both lower extremity in the mid anterior thighs. He denies fevers, chills, focal weakness, bowel or bladder incontinence. His pain is worsened with movement and improves when he lay still. He has a history of skin melanoma that was excised. Workup shows pathological lumbar fracture. Neurosurgical evaluation is requested. (Kezia Sierra) Review of Systems Constitutional: DENIES: Fever, Chills Eyes: DENIES: Diplopia, Vision loss, Double Vision Ears, nose, mouth, throat: DENIES: Vertigo, Oral lesions Respiratory: DENIES: Apneas, Cough, Hemoptysis, Shortness of breath Cardiovascular: DENIES: Chest pain, Palpitations, Syncope Gastrointestinal: DENIES: Abdominal pain, Nausea, Vomiting Genitourinary: DENIES: Urinary incontinence Musculoskeletal: COMPLAINS OF: Joint pain, Muscle aches, Stiffness, Back pain Neurologic: COMPLAINS OF: Paresthesias, DENIES: Seizures, Speech Problems Psychiatric: DENIES: Confusion, Hallucinations (Kezia Sierra) Past Family Social History Allergies: Coded Allergies: Sulfa (Sulfonamide Antibiotics) (Verified Allergy, Severe, Hives, 11/24/17) adhesive tape (Verified Allergy, Severe, Rash, 11/24/17) bacitracin (Verified Allergy, Severe, Rash, 11/24/17) polymyxin B (Verified Allergy, Severe, Rash, 11/24/17) diazepam (Unverified Adverse Reaction, Severe, "Cardiac arrest", 11/24/17) Active Ordered Medications Current Medications Morphine Sulfate (Morphine Inj) 2 mg ONCE ONCE IM Last administered on at 17:08; Start 11/24/17 at 17:00; Stop 11/24/17 at 17:01; Status DC Ondansetron HCl (Zofran Odt) 4 mg ONCE ONCE PO Last administered on at 17:07; Start 11/24/17 at 17:00; Stop 11/24/17 at 17:01; Status DC Hydromorphone HCl (Dilaudid Pf Inj) 0.5 mg ONCE ONCE IVS ; Start 11/24/17 at 17 :45; Stop 11/24/17 at 17:46; Status Cancel Hydromorphone HCl (Dilaudid Pf Inj) 0.5 mg ONCE ONCE IV PUSH Last administered on 11/24/17at 17:47; Start 11/24/17 at 17:45; Stop 11/24/17 at 17:46 ; Status DC Iohexol (Omnipaque 350 Inj) 90 ml STK-MED ONCE IVCONTRAST Last administered on 11/24/17at 19:12; Start 11/24/17 at 19:12; Stop 11/24/17 at 19:13; Status DC Hydromorphone HCl (Dilaudid Pf Inj) 1 mg ONCE ONCE IV PUSH ; Start 11/24/17 at 19:30; Stop 11/24/17 at 19:31; Status Cancel Hydromorphone HCl (Dilaudid Pf Inj) 1 mg ONCE ONCE IV PUSH Last administered on 11/24/17at 19:35; Start 11/24/17 at 19:45; Stop 11/24/17 at 19:46; Status DC Sodium Chloride 1,000 ml @ 100 mls/hr Q10H IV Last administered on 11/25/17at 06:10; Start 11/24/17 at 19:52; Stop 11/25/17 at 09:14; Status DC Sodium Chloride (NS Flush) 2 ml UNSCH PRN IV FLUSH FLUSH AFTER USING IV ACCESS ; Start 11/24/17 at 20:00 Sodium Chloride (NS Flush) 2 ml BID IV FLUSH Last administered on 11/27/17at 09: 34; Start 11/24/17 at 21:00 Metoclopramide HCl (Reglan Inj) 5 mg Q6H PRN IV PUSH NAUSEA OR VOMITING Last administered on 11/26/17 16:34; Start 11/24/17 at 20:00 Acetaminophen (Tylenol) 650 mg Q6H PRN PO FEVER/PAIN SCALE 1 TO 2; Start at 20:00 Acetaminophen/ Hydrocodone Bitart (Arapahoe 5-325 Mg) 1 tab Q4H PRN PO PAIN SCALE 3 TO 5 Last administered on 11/26/17 09:27; Start 11/24/17 at 20:00 Morphine Sulfate (Morphine Inj) 2 mg Q3H PRN IV PUSH Pain 6-10 Last administered on 11/25/17at 06:10; Start 11/24/17 at 20:00; Stop 11/25/17 at 09:14 ; Status DC Senna/Docusate Sodium (Jelly-Colace) 1 tab BID PO Last administered on 09:33; Start 11/24/17 at 21:00 Magnesium Hydroxide (Milk Of Magnesia Liq) 30 ml Q12H PRN PO Mild constipation ; Start 11/24/17 at 20:00 Sennosides (Senokot) 17.2 mg Q12H PRN PO Moderate constipation; Start 11/24/17 at 20:00 Bisacodyl (Dulcolax Supp) 10 mg DAILY PRN RECTAL SEVERE CONSITIPATION; Start at 20:00 Lactulose (Lactulose Liq) 30 ml DAILY PRN PO SEVERE CONSITIPATION; Start at 20:00 Amlodipine Besylate (Norvasc) 5 mg DAILY PO Last administered on 11/27/17at 09: 33; Start 11/25/17 at 09:00 Atorvastatin Calcium (Lipitor) 40 mg HS PO Last administered on 11/26/17at 21:52 ; Start 11/24/17 at 21:00 Cyanocobalamin (Vitamin B12) 1,000 mcg DAILY PO Last administered on 11/27/17 09:34; Start 11/25/17 at 09:00 Metoprolol Tartrate (Lopressor) 25 mg DAILY PO Last administered on 11/27/17 09:34; Start 11/25/17 at 09:00 Tamsulosin HCl (Flomax) 0.4 mg DAILY PO Last administered on 11/27/17at 09:32; Start 11/25/17 at 09:00 Finasteride (Proscar) 5 mg DAILY PO Last administered on 11/27/17at 09:33; Start 11/25/17 at 09:00 Prochlorperazine Edisylate (Compazine Inj) 10 mg Q6H PRN IV PUSH NAUSEA/ VOMITING Last administered on 11/25/17at 18:08; Start 11/24/17 at 21:45 Tramadol HCl (Ultram) 50 mg Q12H PO Last administered on 11/27/17at 09:34; Start 11/25/17 at 10:00 Gadodiamide (Omniscan Pf Inj) 20 ml STK-MED ONCE IVCONTRAST Last administered on 11/25/17at 14:37; Start 11/25/17 at 14:37; Stop 11/25/17 at 14:38; Status DC Polyethylene Glycol (Miralax) 17 gm DAILY PO Last administered on 11/26/17at 08: 22; Start 11/26/17 at 09:00 Acetaminophen/ Hydrocodone Bitart (Arapahoe 10-325 Mg) 1 tab Q4H PRN PO PAIN SCALE 6 TO 10 Last administered on 11/27/17at 13:09; Start 11/25/17 at 20:30 Hydromorphone HCl (Dilaudid Pf Inj) 0.5 mg ONCE ONCE IV PUSH Last administered on 11/25/17at 23:04; Start 11/25/17 at 22:45; Stop 11/25/17 at 22:58 ; Status DC Lactated Ringer's 1,000 ml @ 30 mls/hr Q24H PRN IV SEE LABEL COMMENTS; Start at 04:30; Stop 11/30/17 at 04:29 Sodium Chloride 500 ml @ 30 mls/hr [id number] PRN IV SEE LABEL COMMENTS; Start at 04:30; Stop 11/30/17 at 04:29 Povidone Iodine (Betadine 5% Antisepsis Kit) 1 applic PILOT BOAT CAPTAIN PRN EACH NARE SEE LABEL COMMENTS; Start 11/27/17 at 04:30; Stop 11/30/17 at 04:29 Chlorhexidine Gluconate (Chlorhexidine 2% Cloth) 3 pack PILOT BOAT CAPTAIN PRN TOPICAL SEE LABEL COMMENTS; Start 11/27/17 at 04:30; Stop 11/30/17 at 04:29 Hydromorphone HCl (Dilaudid Pf Inj) 0.2 mg Q4H PRN IV PUSH BREAKTHROUGH PAIN Last administered on 11/27/17at 10:46; Start 11/27/17 at 10:15 Midazolam HCl (Versed Inj) 5 mg STK-MED ONCE .ROUTE Last administered on at 14:02; Start 11/27/17 at 14:02; Stop 11/27/17 at 14:03; Status DC Fentanyl Citrate (fentaNYL INJ) 250 mcg STK-MED ONCE .ROUTE Last administered on 11/27/17at 14:02; Start 11/27/17 at 14:02; Stop 11/27/17 at 14:03; Status DC Bupivacaine HCl (Marcaine Pf 0.75% Inj) 30 ml STK-MED ONCE .ROUTE Last administered on 11/27/17at 14:45; Start 11/27/17 at 14:14; Stop 11/27/17 at 14:15 ; Status DC Nystatin (Mycostatin Powder) 1 applic Q12HR TOPICAL ; Start 11/27/17 at 21:00 (Casey Cat MD) Past Medical History Atrial fibrillation BPH Melanoma of skin Polycystic kidney disease Sleep apnea Past Surgical History Removal of skin melanoma Carpal Tunnel Release Bilateral Hernia repair Cataract surgery Right knee surgery Prostate surgery Cholecystectomy Tonsillectomy Appendectomy Reported Medications reviewed in EMR Active Ordered Medications Current Medications Medications (Trade) Dose Ordered Sig/Se Route PRN Reason Start Time Stop Time Status Last Admin Dose Admin Sodium Chloride (NS Flush) 2 ml UNSCH PRN IV FLUSH FLUSH AFTER USING IV ACCESS 11/24/17 20:00 Sodium Chloride (NS Flush) 2 ml BID IV FLUSH 11/24/17 21:00 11/27/17 09:34 Metoclopramide HCl (Reglan Inj) 5 mg Q6H PRN IV PUSH NAUSEA OR VOMITING 11/24/17 20:00 11/26/17 16:34 Acetaminophen (Tylenol) 650 mg Q6H PRN PO FEVER/PAIN SCALE 1 TO 2 11/24/17 20:00 Acetaminophen/ Hydrocodone Bitart (Arapahoe 5-325 Mg) 1 tab Q4H PRN PO PAIN SCALE 3 TO 5 11/24/17 20:00 11/26/17 09:27 Senna/Docusate Sodium (Jelly-Colace) 1 tab BID PO 11/24/17 21:00 11/27/17 09:33 Magnesium Hydroxide (Milk Of Magnesia Liq) 30 ml Q12H PRN PO Mild constipation 11/24/17 20:00 Sennosides (Senokot) 17.2 mg Q12H PRN PO Moderate constipation 11/24/17 20:00 Bisacodyl (Dulcolax Supp) 10 mg DAILY PRN RECTAL SEVERE CONSITIPATION 11/24/17 20:00 Lactulose (Lactulose Liq) 30 ml DAILY PRN PO SEVERE CONSITIPATION 11/24/17 20:00 Amlodipine Besylate (Norvasc) 5 mg DAILY PO 11/25/17 09:00 11/27/17 09:33 Atorvastatin Calcium (Lipitor) 40 mg HS PO 11/24/17 21:00 11/26/17 21:52 Cyanocobalamin (Vitamin B12) 1,000 mcg DAILY PO 11/25/17 09:00 11/27/17 09:34 Metoprolol Tartrate (Lopressor) 25 mg DAILY PO 11/25/17 09:00 11/27/17 09:34 Tamsulosin HCl (Flomax) 0.4 mg DAILY PO 11/25/17 09:00 11/27/17 09:32 Finasteride (Proscar) 5 mg DAILY PO 11/25/17 09:00 11/27/17 09:33 Prochlorperazine Edisylate (Compazine Inj) 10 mg Q6H PRN IV PUSH NAUSEA/VOMITING 11/24/17 21:45 11/25/17 18:08 Tramadol HCl (Ultram) 50 mg Q12H PO 11/25/17 10:00 11/27/17 09:34 Polyethylene Glycol (Miralax) 17 gm DAILY PO 11/26/17 09:00 11/26/17 08:22 Acetaminophen/ Hydrocodone Bitart (Arapahoe 10-325 Mg) 1 tab Q4H PRN PO PAIN SCALE 6 TO 10 11/25/17 20:30 11/27/17 13:09 Lactated Ringer's 1,000 ml @ 30 mls/hr Q24H PRN IV SEE LABEL COMMENTS 11/27/17 04:30 11/30/17 04:29 Sodium Chloride 500 ml @ 30 mls/hr [id number] PRN IV SEE LABEL COMMENTS 11/27/17 04:30 11/30/17 04:29 Povidone Iodine (Betadine 5% Antisepsis Kit) 1 applic PILOT BOAT CAPTAIN PRN EACH NARE SEE LABEL COMMENTS 11/27/17 04:30 11/30/17 04:29 Chlorhexidine Gluconate (Chlorhexidine 2% Cloth) 3 pack PILOT BOAT CAPTAIN PRN TOPICAL SEE LABEL COMMENTS 11/27/17 04:30 11/30/17 04:29 Hydromorphone HCl (Dilaudid Pf Inj) 0.2 mg Q4H PRN IV PUSH BREAKTHROUGH PAIN 11/27/17 10:15 11/27/17 10:46 Family History Reports of Hypertension in family Social History Denies tobacco, alcohol or illicit drug abuse. He lives with his . (Kezia Sierra) Physical Exam Vital Signs Vital Signs Date Time Temp Pulse Resp B/P (MAP) Pulse Ox O2 Delivery O2 Flow Rate FiO2 11/27/17 08:14 98.3 66 18 159/95 (116) 94 11/27/17 05:11 97.8 67 18 135/63 (87) 93 11/27/17 03:23 18 11/27/17 01:02 98.7 65 18 129/66 (87) 94 11/26/17 23:38 21 11/26/17 22:57 18 11/26/17 20:18 97.8 84 18 144/79 (100) 93 11/26/17 16:40 97.8 72 18 180/86 (117) 97 11/26/17 15:00 138/78 (98) 11/26/17 12:00 97.0 69 23 181/91 (121) 95 Physical Exam GENERAL: Reveals a male, with back pain when he tries to sit and move HEENT: Head is normocephalic. Sclerae and conjunctivae are normal. Oropharynx unremarkable. NECK: There is no cervical, supraclavicular, axillary or inguinal adenopathy. HEART: Regular rate and rhythm. Occasional premature beat. LUNGS: Clear, without rales, wheezes or rhonchi. ABDOMEN: Without hepatosplenomegaly or masses. EXTREMITIES: Trace edema. MUSCULOSKELETAL: There is tenderness of the lower back. NEUROLOGIC: The patient is alert, awake and oriented to time, place and person. Speech is fluent. Cranial nerve examination: pupils to be equal, round and reactive to light. Extra-ocular movements are intact. Facial motor and sensory function are normal and symmetrical. Gross hearing appears intact. Sternocleidomastoid and trapezius muscles are symmetrical. Other cranial nerves are intact. Muscle strength is normal in all muscle groups of both upper and lower extremities. Sensory examination is intact to light touch and pin prick in both the upper and lower extremities. Deep tendon reflexes are symmetrical in both upper and lower extremities. There is a bilateral plantar flexion response. Cerebellar examination is unremarkable, without deficits. SKIN: Unremarkable. Laboratory Laboratory Tests Test 11/26/17 16:46 Prothrombin Time 10.1 Prothromb Time International Ratio 1.0 Activated Partial Thromboplast Time 32.1 (Casey Cat MD) Result Diagram: 11/25/17 0611 11/25/17 0611 Imaging Last Impressions Lumbar Spine MRI 11/25/17 0000 Signed Impressions: CONCLUSION: Multifocal signal abnormalities characteristic of a neoplastic process involvin g the marrow. Areas of involvement include the L1 vertebral body with associate d compression deformity), posterior inferior L2, and L3. The L3 involvement ext ends into the pedicles bilaterally and there is evidence of extraosseous soft t issue extension about the left and posterior L3 vertebral body with soft tissue extension replacing the left neural foramen. Chest CT 11/25/17 0000 Signed Impressions: CONCLUSION: 1. Numerous subcentimeter lung nodules characteristic of metastatic disease. T here is also a slightly irregular 2 cm nodule anterior segment right upper lobe that could represent primary lung malignancy or metastatic disease. 2. No adenopathy or significant effusion. Probable pathologic severe compressi on deformity at L1. Lumbar Spine CT 11/24/17 1757 Signed Impressions: CONCLUSION: 1. Osteopenia with lytic bone destruction at L3 and probable pathologic severe compression fracture of L1. Primary differential diagnosis is myeloma or metas tatic disease. 2. Multilevel canal stenosis as above. 3. Grade 1 anterolisthesis of L5 on S1 with severe bilateral foraminal stenosi s. Abdomen/Pelvis CT 11/24/17 6867 Signed Impressions: CONCLUSION: 1. Lytic bone destruction of L3 with likely pathologic fractures of L3 and L1. Primary differential diagnosis is metastatic disease or myeloma. 2. Stable appearance of bilateral renal cysts, nonobstructing renal calculi an d hepatic cysts February 2017. (Kezia Sierra) Attending Statement I reviewed his radiological studies CT Lumbar spine The bones are diffusely osteopenic. There is lytic bone destruction of L3 with pathologic fractures of superior and inferior endplate. There is a severe compression deformity of L1 which is probably also pathologic with mild retropulsion resulting in mild canal stenosis. At L1-2 there is no significant stenosis. At L2-3 there is a probable moderate central canal lateral recess stenosis and mild foraminal stenosis. At L3-4 there is a mild central canal stenosis. At L4-5 there is a mild central canal stenosis. L5-S1 there is a grade 1 anterolisthesis with bilateral pars defects. Severe bilateral foraminal stenosis. CONCLUSION: 1. Osteopenia with lytic bone destruction at L3 and probable pathologic severe compression fracture of L1. Primary differential diagnosis is myeloma or metastatic disease. 2. Multilevel canal stenosis as above. 3. Grade 1 anterolisthesis of L5 on S1 with severe bilateral foraminal stenosis. MRI Lumbar spine FINDINGS: The most caudal-appearing lumbar vertebra is numbered as L5. There is grade 1 anterolisthesis of L5 with respect to S1 with associated bilateral pars defects, similar to prior CT. The MRI is abnormal demonstrating 75% compression deformity of the L1 vertebral body with some mild T2 prolongation and mild enhancement in the residual been marrow. The posterior cortex of the vertebral body is in normal alignment. At L2, there is a focal signal abnormality in the posterior inferior right vertebral body measuring 2 cm with T1 and T2 prolongation and uniform contrast enhancement. The vertebral body is normal in height and no expansion of the posterior cortex. At L3, there is a focal 50% central compression deformity of the superior endplate and diffuse abnormal signal throughout the entire vertebral body characterized by T1 and T2 prolongation. On the postcontrast study, there is diffuse increased enhancement seen in the vertebral body and indicates left pedicle. There is also extra osseous enhancing soft tissue causing flattening of the ventral margin of the thecal sac with thecal sac measuring 5 mm at its narrowest point. Soft tissue enhancement also extends and replaces the left neural foramen. There is some mild enhancement in the marrow of the right pedicle without evidence of destruction or extraosseous soft tissue. At L4 and L5, there is homogeneous signal in the marrow and normal morphology of the vertebral body. No enhancement. The bony neural foramina remains patent at the L5-S1 level despite the anterolisthesis and pars defects. CONCLUSION: Multifocal signal abnormalities characteristic of a neoplastic process involving the marrow. Areas of involvement include the L1 vertebral body with associated compression deformity), posterior inferior L2, and L3. The L3 involvement extends into the pedicles bilaterally and there is evidence of extraosseous soft tissue extension about the left and posterior L3 vertebral body with soft tissue extension replacing the left neural foramen. CT of the Chest FINDINGS: There is a 2 cm nodule in the anterior segment of the right upper lobe which is a slightly irregular margin. This could represent a primary lung malignancy or metastatic lesion. There are numerous other subcentimeter nodules in both lungs which are more characteristic of metastatic disease. No pathologically enlarged nodes are identified in the melissa, mediastinum or axillary region. There are mild coronary calcifications. There is minimal basilar dependent atelectasis in the lungs. See recent abdomen CT for findings below the diaphragm. There is a severe compression deformity of L1 which may be pathologic and related to bony metastatic disease. CONCLUSION: 1. Numerous subcentimeter lung nodules characteristic of metastatic disease. There is also a slightly irregular 2 cm nodule anterior segment right upper lobe that could represent primary lung malignancy or metastatic disease. 2. No adenopathy or significant effusion. Probable pathologic severe compression deformity at L1. I reviewed his clinical and radiological studies.IK discussed with him the alternatives of treatment. He has severe pain relatred to his spinal fractures and instability. In addition he has severe lower extremity L4 radiculopathy. This is more than what it could be corrected by a kyphoplasty. I recommend to proceed with a CT guided biopsy. he may need an extensive surgical procedure for stabilization Pulmonary. He has numerous nodules consistent with metastatic disease. Aggressive pulmonary toilette, nasotracheal suction, and breathing treatments with nebulizers. Nutrition.Oral diet Renal. monitor closely urine output, BUN and creatinine Endocrine. Monitor serial Acu checks and SSI as needed in detail ID monitor for signs of infection Protonix for stress ulcer prophylaxis Dedrick hose and SCD's for DVT prophylaxis. Discussed with Dr Rodríguez and with the neuroradiologist Dr Acosta (Casey Cat MD) Casey Cat MD Nov 27, 2017 09:11 Kezia Sierra Nov 27, 2017 15:02
[2017-11-27] MEDS: TAMSULOSIN HCL 0.4 MG CAP PO SCH (09:32)
[2017-11-27] MEDS: FINASTERIDE 5 MG TAB PO SCH (09:33)
[2017-11-27] MEDS: amLODIPine BESYLATE 5 MG TAB PO SCH (09:33)
[2017-11-27] MEDS: DOCUSATE SODIUM 50 MG/SENNA 8.6 MG TAB PO SCH ×2 (09:33→20:37)
[2017-11-27] MEDS: SODIUM CHLORIDE 0.9% FLUSH 10 ML FLUSH IV FLUSH SCH ×2 (09:34→20:38)
[2017-11-27] MEDS: METOPROLOL TARTRATE 25 MG TAB PO SCH (09:34)
[2017-11-27] MEDS: traMADol HCL 50 MG TAB PO SCH ×2 (09:34→20:38)
[2017-11-27] MEDS: CYANOCOBALAMIN 1,000 MCG TAB PO SCH (09:34)
[2017-11-27] MEDS: HYDROmorphone HCL PF 2 MG/ML VIAL IV PUSH PRN (10:46)
--- NOTE | 2017-11-27 10:48 | HHI.PR ---
Subjective Remarks Follow-up back pain. Patient reporting severe pain in his low back that radiates down both legs. No chest pain or dyspnea. Objective Vitals Vital Signs Date Time Temp Pulse Resp B/P (MAP) Pulse Ox O2 Delivery O2 Flow Rate FiO2 11/27/17 08:14 98.3 66 18 159/95 (116) 94 11/27/17 05:11 97.8 67 18 135/63 (87) 93 11/27/17 03:23 18 11/27/17 01:02 98.7 65 18 129/66 (87) 94 11/26/17 23:38 21 11/26/17 22:57 18 11/26/17 20:18 97.8 84 18 144/79 (100) 93 11/26/17 16:40 97.8 72 18 180/86 (117) 97 11/26/17 15:00 138/78 (98) 11/26/17 12:00 97.0 69 23 181/91 (121) 95 I/O 11/26/17 11/26/17 11/26/17 11/27/17 11/27/17 11/27/17 07:00 15:00 23:00 07:00 15:00 23:00 Intake Total 480 ml 120 ml Output Total 750 ml 800 ml 500 ml Balance -270 ml 120 ml -800 ml -500 ml Intake Oral 480 ml 120 ml Output Urine Total 750 ml 800 ml 500 ml # Voids 3 Result Diagram: 11/25/17 0611 11/25/17 0611 Imaging Last Impressions Lumbar Spine MRI 11/25/17 0000 Signed Impressions: CONCLUSION: Multifocal signal abnormalities characteristic of a neoplastic process involvin g the marrow. Areas of involvement include the L1 vertebral body with associate d compression deformity), posterior inferior L2, and L3. The L3 involvement ext ends into the pedicles bilaterally and there is evidence of extraosseous soft t issue extension about the left and posterior L3 vertebral body with soft tissue extension replacing the left neural foramen. Chest CT 11/25/17 0000 Signed Impressions: CONCLUSION: 1. Numerous subcentimeter lung nodules characteristic of metastatic disease. T here is also a slightly irregular 2 cm nodule anterior segment right upper lobe that could represent primary lung malignancy or metastatic disease. 2. No adenopathy or significant effusion. Probable pathologic severe compressi on deformity at L1. Lumbar Spine CT 6/16/18 1757 Signed Impressions: CONCLUSION: 1. Osteopenia with lytic bone destruction at L3 and probable pathologic severe compression fracture of L1. Primary differential diagnosis is myeloma or metas tatic disease. 2. Multilevel canal stenosis as above. 3. Grade 1 anterolisthesis of L5 on S1 with severe bilateral foraminal stenosi s. Abdomen/Pelvis CT 11/24/171756 Signed Impressions: CONCLUSION: 1. Lytic bone destruction of L3 with likely pathologic fractures of L3 and L1. Primary differential diagnosis is metastatic disease or myeloma. 2. Stable appearance of bilateral renal cysts, nonobstructing renal calculi an d hepatic cysts February 2017. Objective Remarks General: Elderly male in no acute distress. Appears uncomfortable. Heart: Regular rate and rhythm. No murmur. Lungs: Clear to auscultation bilaterally. No wheezes, rales, or rhonchi. Breathing is nonlabored. Abdomen: Soft, mild diffuse tenderness to palpation without rebound or guarding , nondistended. Extremities: No lower extremity edema. Psych: Alert and oriented. Neuro: Normal speech. No focal deficits noted. Procedures None Urinary Catheter: No Vascular Central Line Catheter: No A/P Problem List: (1) Afib ICD Code: I48.91 - Unspecified atrial fibrillation (2) Pathologic compression fracture of lumbar vertebra ICD Code: M48.56XA - Collapsed vertebra, not elsewhere classified, lumbar region, initial encounter for fracture Status: Acute (3) Intractable back pain ICD Code: M54.9 - Dorsalgia, unspecified Status: Acute (4) HTN (hypertension) ICD Code: I10 - Essential (primary) hypertension Assessment and Plan 1. Pathologic compression fracture, lumbar spine: Appreciate neurosurgery, radiology recommendations. Plan at this time is for kyphoplasty. Continue pain control. 2. Multiple lesions in the spine: Likely metastases. Interventional radiology to obtain biopsy. Appreciate oncology recommendations. 3. Hypertension: Continue current medications. 4. Atrial fibrillation: Rate controlled. Continue metoprolol. Eliquis on hold. 5. DVT prophylaxis: SCDs, EMIGDIO patel. Eliquis on hold for possible procedure. Problem Qualifiers (1) Pathologic compression fracture of lumbar vertebra: Qualified Codes: M48.56XA - Collapsed vertebra, not elsewhere classified, lumbar region, initial encounter for fracture Coleman Gonzalez MD Nov 27, 2017 10:48
[2017-11-27] MEDS ORDERED: fentaNYL CITRATE 250 MCG/5 ML AMP ONE (14:02)
[2017-11-27] MEDS ORDERED: MIDAZOLAM HCL 5 MG/5 ML VIAL ONE (14:02)
[2017-11-27] MEDS ORDERED: BUPIVACAINE HCL PF 0.75% 30 ML VIAL ONE (14:14)
--- NOTE | 2017-11-27 15:05 | PD.RAD ---
Post Procedure Progress Note Pre Procedure Diagnosis: (1) Pathologic compression fracture of lumbar vertebra Post Procedure Diagnosis: (1) Pathologic compression fracture of lumbar vertebra Procedure Date: Nov 27, 2017 Supervising Radiologist: Miguel Hampton Proceduralist/Assist: RT Bre(R), Other Anesthesia: Conscious Sedation Plan of Activity Patient to Unit: [facility] Patient Condition: Good See PACS Report for procedural detail/treatment Miguel Hampton MD Nov 27, 2017 15:05
--- NOTE | 2017-11-27 16:44 | RADRPT ---
EXAM DATE: 11/27/2017 3:55 PM EDT AGE/SEX: 82 years / Male INDICATIONS: History of suspected pathologic L3 compression fracture. CLINICAL DATA: This is the patient's initial encounter. Patient reports that signs and symptoms have been present for 7 - 11 months and indicates a pain score of 8/10. MEDICAL/SURGICAL HISTORY: . Atrial fibrillationMelanoma, right neckPolycystic kidney diseaseBen ign prostatic hyperplasiaSleep apnea . Hernia repairAppendectomyCataract surgeryProstate surgeryRigh t knee surgerySkin surgery for melanoma right neckCholecystectomyTonsillectomyCarpal tunnel surgery b ilaterally COMPARISON: No prior exams available for comparison. FLUORO TIME (min): 4.4 IMAGE SERIES: 3 SEDATION TIME (min): 30 MEDICATION(S): 3 mg midazolam (Versed) IV 200 mcg fentanyl (Sublimaze) IV DEVICE(s): 18 gauge 20 cm Temno SPECIMEN(S): Core specimen(s) obtained and submitted to laboratory for pathologic evaluation. . . PROCEDURE : 1. Fluoroscopically guided needle biopsy. 2. Conscious sedation with continuous EKG and Oximetry monitoring. The risks, benefits and alternatives to the procedure were explained and verbal and written consent w as obtained. The site was prepped in sterile fashion. Full sterile technique was used, including cap, mask, steri le gloves and gown and a large sterile sheet. Hand hygiene and 2% chlorhexidine and/or betadine/alco hol prep was utilized per protocol for cutaneous antisepsis. The skin and subcutaneous tissues were infiltrated with local anesthetic solution. With fluoroscopic guidance 13-gauge Lianna biopsy needle was advanced via right transpedicular appro ach into the L3 vertebral body. Multiple biopsy attempts were then made with a Jamshidi needle. This yielded very little cortical tissue. Therefore, additional biopsies were performed with 18-gauge Temn o biopsy device again yielding little core tissue. Multiple aspirations were also performed and submi tted separately. Was then removed. Conscious sedation was performed with the prescribed dosages and duration as above in the presence of an independent trained radiology nurse to assist in the monitoring of the patient. EKG and oximetry remained stable throughout the procedure. CONCLUSION: 1. Uncomplicated fluoroscopic-guided L3 biopsy, as above. Electronically signed by: Miguel Hampton MD 11/27/2017 4:42 PM EDT
[2017-11-27] MEDS: SENNOSIDES 8.6 MG TAB PO PRN (18:23)
[2017-11-27] MEDS: NYSTATIN 100,000 U/GM PWD 15 GM BTL TOPICAL SCH (20:37)
[2017-11-27] MEDS: ATORVASTATIN 40 MG TAB PO SCH (20:38)
[2017-11-28 00:12] VITALS: BP 132/64; PULSE 65; RESP 20; TEMP 97.2; O2SAT 95
[2017-11-28] MEDS: ACETAMINOPHEN/HYDROcodone 325 MG/10 MG TAB PO PRN ×4 (02:33→23:46)
[2017-11-28 05:36] VITALS: BP 144/66; PULSE 64; RESP 20; TEMP 98.4; O2SAT 94
[2017-11-28 08:00] VITALS: BP 185/87; PULSE 68; RESP 17; TEMP 98.4; O2SAT 95
[2017-11-28] MEDS: HYDROmorphone HCL PF 2 MG/ML VIAL IV PUSH PRN (08:39)
[2017-11-28] MEDS: amLODIPine BESYLATE 5 MG TAB PO SCH (08:43)
[2017-11-28] MEDS: DOCUSATE SODIUM 50 MG/SENNA 8.6 MG TAB PO SCH ×2 (08:45→20:21)
[2017-11-28] MEDS: CYANOCOBALAMIN 1,000 MCG TAB PO SCH (08:45)
[2017-11-28] MEDS: FINASTERIDE 5 MG TAB PO SCH (08:45)
[2017-11-28] MEDS: METOPROLOL TARTRATE 25 MG TAB PO SCH (08:46)
[2017-11-28] MEDS: TAMSULOSIN HCL 0.4 MG CAP PO SCH (08:46)
[2017-11-28] MEDS: SODIUM CHLORIDE 0.9% FLUSH 10 ML FLUSH IV FLUSH SCH ×2 (08:46→20:22)
[2017-11-28] MEDS: traMADol HCL 50 MG TAB PO SCH ×2 (08:46→20:20)
[2017-11-28] MEDS: NYSTATIN 100,000 U/GM PWD 15 GM BTL TOPICAL SCH ×2 (08:50→20:22)
[2017-11-28] MEDS: POLYETHYLENE GLYCOL 17 GM PKG PO SCH (08:50)
--- NOTE | 2017-11-28 11:30 | HHI.PR ---
Subjective Remarks Follow up back pain. Patient had biopsy yesterday. States that the pain is about the same today. Denies chest pain, dyspnea. Rash on back still pruritic. Objective Vitals Vital Signs Date Time Temp Pulse Resp B/P (MAP) Pulse Ox O2 Delivery O2 Flow Rate FiO2 11/28/17 08:00 98.4 68 17 185/87 (119) 95 11/28/17 05:36 98.4 64 20 144/66 (92) 94 11/28/17 03:37 18 11/28/17 00:21 Nasal Cannula 2.00 11/28/17 00:12 97.2 65 20 132/64 (86) 95 11/27/17 22:02 18 11/27/17 21:32 97.3 68 20 150/87 (108) 94 11/27/17 21:20 Nasal Cannula 2.00 11/27/17 16:45 Nasal Cannula 2.00 11/27/17 15:35 55 18 110/67 (81) 92 11/27/17 15:20 97.8 52 16 104/67 (79) 92 11/27/17 12:13 98.5 59 18 172/89 (116) 96 I/O 11/27/17 11/27/17 11/27/17 11/28/17 11/28/17 11/28/17 07:00 15:00 23:00 07:00 15:00 23:00 Output Total 500 ml 200 ml Balance -500 ml -200 ml Output Urine Total 500 ml 200 ml # Voids 2 Result Diagram: 11/25/17 0611 11/25/17 0611 Imaging Last Impressions Needle Biopsy X-Ray 11/27/17 0000 Signed Impressions: CONCLUSION: 1. Uncomplicated fluoroscopic-guided L3 biopsy, as above. Lumbar Spine MRI 11/25/17 0000 Signed Impressions: CONCLUSION: Multifocal signal abnormalities characteristic of a neoplastic process involvin g the marrow. Areas of involvement include the L1 vertebral body with associate d compression deformity), posterior inferior L2, and L3. The L3 involvement ext ends into the pedicles bilaterally and there is evidence of extraosseous soft t issue extension about the left and posterior L3 vertebral body with soft tissue extension replacing the left neural foramen. Chest CT 11/25/17 0000 Signed Impressions: CONCLUSION: 1. Numerous subcentimeter lung nodules characteristic of metastatic disease. T here is also a slightly irregular 2 cm nodule anterior segment right upper lobe that could represent primary lung malignancy or metastatic disease. 2. No adenopathy or significant effusion. Probable pathologic severe compressi on deformity at L1. Lumbar Spine CT 11/24/171756 Signed Impressions: CONCLUSION: 1. Osteopenia with lytic bone destruction at L3 and probable pathologic severe compression fracture of L1. Primary differential diagnosis is myeloma or metas tatic disease. 2. Multilevel canal stenosis as above. 3. Grade 1 anterolisthesis of L5 on S1 with severe bilateral foraminal stenosi s. Abdomen/Pelvis CT 11/24/171756 Signed Impressions: CONCLUSION: 1. Lytic bone destruction of L3 with likely pathologic fractures of L3 and L1. Primary differential diagnosis is metastatic disease or myeloma. 2. Stable appearance of bilateral renal cysts, nonobstructing renal calculi an d hepatic cysts February 2017. Objective Remarks General: Elderly male in no acute distress. Appears more comfortable today. Heart: Regular rate and rhythm. No murmur. Lungs: Clear to auscultation bilaterally. No wheezes, rales, or rhonchi. Breathing is nonlabored. Abdomen: Soft, mild diffuse tenderness to palpation without rebound or guarding , nondistended. Extremities: No lower extremity edema. Psych: Alert and oriented. Neuro: Normal speech. No focal deficits noted. Skin: Maculopapular erythematous rash on the back. Procedures 11/27/17 fluoroscopic guided L3 biopsy Urinary Catheter: No Vascular Central Line Catheter: No A/P Problem List: (1) Afib ICD Code: I48.91 - Unspecified atrial fibrillation (2) Pathologic compression fracture of lumbar vertebra ICD Code: M48.56XA - Collapsed vertebra, not elsewhere classified, lumbar region, initial encounter for fracture Status: Acute (3) Intractable back pain ICD Code: M54.9 - Dorsalgia, unspecified Status: Acute (4) HTN (hypertension) ICD Code: I10 - Essential (primary) hypertension Assessment and Plan 1. Pathologic compression fracture, lumbar spine: Appreciate neurosurgery, radiology recommendations. Continue pain control. 2. Multiple lesions in the spine: Likely metastases. Status post fluoroscopic guided L3 biopsy. Pathology pending. Appreciate oncology recommendations. 3. Hypertension: Continue current medications. Blood pressure likely elevated secondary to pain. 4. Atrial fibrillation: Rate controlled. Continue metoprolol. Eliquis on hold. 5. DVT prophylaxis: EMIGDIO Garzon. Eliquis on hold. Discharge Planning Pending further clinical improvement and further workup. Problem Qualifiers (1) Pathologic compression fracture of lumbar vertebra: Qualified Codes: M48.56XA - Collapsed vertebra, not elsewhere classified, lumbar region, initial encounter for fracture Coleman Gonzalez MD Nov 28, 2017 11:30
[2017-11-28 12:00] VITALS: BP 130/69; PULSE 72; RESP 18; TEMP 98.3; O2SAT 94
[2017-11-28 16:00] VITALS: BP 188/87; PULSE 70; RESP 18; TEMP 98.8; O2SAT 96
--- NOTE | 2017-11-28 16:20 | HHI.NSPN ---
(Kezia Sierra) Note Status Status: Progress Note (Kezia Sierra) Interval History Interval History Mr. Catherine is a 82 year old male who presents to [facility] for intractable low back pain. Mr. Catherine has a history of chronic back pain in which he undergoes physical therapy. However over the past 2 months his pain has been getting worse and much worse over the last several days. He denies any associated trauma or falls. He reports his pain is located in the lower back with pain also radiating down both lower extremity in the mid anterior thighs. He denies fevers, chills, focal weakness, bowel or bladder incontinence. His pain is worsened with movement and improves when he lay still. He has a history of skin melanoma that was excised. Workup shows pathological lumbar fracture. Neurosurgical evaluation is requested. 11/29: pathology still pending, wants to go home if pathology will take few days. (Kezia Sierra) Labs, Micro, & Vital Signs Results Date Time Temp Pulse Resp B/P (MAP) Pulse Ox O2 Delivery O2 Flow Rate FiO2 11/28/17 12:00 98.3 72 18 130/69 (89) 94 11/28/17 08:00 98.4 68 17 185/87 (119) 95 11/28/17 05:36 98.4 64 20 144/66 (92) 94 11/28/17 03:37 18 11/28/17 00:21 Nasal Cannula 2.00 11/28/17 00:12 97.2 65 20 132/64 (86) 95 11/27/17 22:02 18 11/27/17 21:32 97.3 68 20 150/87 (108) 94 11/27/17 21:20 Nasal Cannula 2.00 11/27/17 16:45 Nasal Cannula 2.00 Constitutional Vital Signs Date Time Temp Pulse Resp B/P (MAP) Pulse Ox O2 Delivery O2 Flow Rate FiO2 11/28/17 12:00 98.3 72 18 130/69 (89) 94 11/28/17 08:00 98.4 68 17 185/87 (119) 95 11/28/17 05:36 98.4 64 20 144/66 (92) 94 11/28/17 03:37 18 11/28/17 00:21 Nasal Cannula 2.00 11/28/17 00:12 97.2 65 20 132/64 (86) 95 11/27/17 22:02 18 11/27/17 21:32 97.3 68 20 150/87 (108) 94 11/27/17 21:20 Nasal Cannula 2.00 11/27/17 16:45 Nasal Cannula 2.00 (Kezia Sierra) Review of Systems Constitutional: DENIES: Fever, Chills Cardiovascular: DENIES: Chest pain Musculoskeletal: COMPLAINS OF: Stiffness, Back pain Neurologic: DENIES: Headache, Localized weakness, Seizures (Kezia Sierra) Physical Exam GENERAL: Resting in bed in no acute distress HEENT: Head is normocephalic. Sclerae and conjunctivae are normal. Oropharynx unremarkable. NECK: There is no cervical, supraclavicular, axillary or inguinal adenopathy. HEART: Regular rate and rhythm. Occasional premature beat. LUNGS: Clear, without rales, wheezes or rhonchi. ABDOMEN: Without hepatosplenomegaly or masses. EXTREMITIES: Trace edema. MUSCULOSKELETAL: There is tenderness of the lower back. NEUROLOGIC: The patient is alert, awake and oriented to time, place and person. Speech is fluent. Cranial nerve examination: pupils to be equal, round and reactive to light. Extra-ocular movements are intact. Facial motor and sensory function are normal and symmetrical. Gross hearing appears intact. Sternocleidomastoid and trapezius muscles are symmetrical. Other cranial nerves are intact. Muscle strength is normal in all muscle groups of both upper and lower extremities. Sensory examination is intact to light touch and pin prick in both the upper and lower extremities. Deep tendon reflexes are symmetrical in both upper and lower extremities. There is a bilateral plantar flexion response. Cerebellar examination is unremarkable, without deficits. SKIN: Unremarkable. (Kezia Sierra) GENERAL: Mr Catherine iscomfrtable in bed in no acute distress HEENT: Head is normocephalic. Sclerae and conjunctivae are normal. Oropharynx unremarkable. NECK: There is no cervical, supraclavicular, axillary or inguinal adenopathy. HEART: Regular rate and rhythm. Occasional premature beat. LUNGS: Clear, without rales, wheezes or rhonchi. ABDOMEN: Without hepatosplenomegaly or masses. EXTREMITIES: Trace edema. MUSCULOSKELETAL: There is tenderness of the lower back. NEUROLOGIC: The patient is alert, awake and oriented to time, place and person. Speech is fluent. Cranial nerve examination: pupils to be equal, round and reactive to light. Extra-ocular movements are intact. Facial motor and sensory function are normal and symmetrical. Gross hearing appears intact. Sternocleidomastoid and trapezius muscles are symmetrical. Other cranial nerves are intact. Muscle strength is normal in all muscle groups of both upper and lower extremities. Sensory examination is intact to light touch and pin prick in both the upper and lower extremities. Deep tendon reflexes are symmetrical in both upper and lower extremities. There is a bilateral plantar flexion response. Cerebellar examination without deficits. SKIN: Warm and dry (Casey Cat MD) Medications Current Medications Current Medications Medications (Trade) Dose Ordered Sig/Se Route PRN Reason Start Time Stop Time Status Last Admin Dose Admin Sodium Chloride (NS Flush) 2 ml UNSCH PRN IV FLUSH FLUSH AFTER USING IV ACCESS 11/24/17 20:00 Sodium Chloride (NS Flush) 2 ml BID IV FLUSH 11/24/17 21:00 11/28/17 08:46 Metoclopramide HCl (Reglan Inj) 5 mg Q6H PRN IV PUSH NAUSEA OR VOMITING 11/24/17 20:00 11/26/17 16:34 Acetaminophen (Tylenol) 650 mg Q6H PRN PO FEVER/PAIN SCALE 1 TO 2 11/24/17 20:00 Acetaminophen/ Hydrocodone Bitart (Biscoe 5-325 Mg) 1 tab Q4H PRN PO PAIN SCALE 3 TO 5 11/24/17 20:00 11/26/17 09:27 Senna/Docusate Sodium (Jelly-Colace) 1 tab BID PO 11/24/17 21:00 11/28/17 08:45 Magnesium Hydroxide (Milk Of Magnesia Liq) 30 ml Q12H PRN PO Mild constipation 11/24/17 20:00 Sennosides (Senokot) 17.2 mg Q12H PRN PO Moderate constipation 11/24/17 20:00 11/27/17 18:23 Bisacodyl (Dulcolax Supp) 10 mg DAILY PRN RECTAL SEVERE CONSITIPATION 11/24/17 20:00 Lactulose (Lactulose Liq) 30 ml DAILY PRN PO SEVERE CONSITIPATION 11/24/17 20:00 Amlodipine Besylate (Norvasc) 5 mg DAILY PO 11/25/17 09:00 11/28/17 08:43 Atorvastatin Calcium (Lipitor) 40 mg HS PO 11/24/17 21:00 11/27/17 20:38 Cyanocobalamin (Vitamin B12) 1,000 mcg DAILY PO 11/25/17 09:00 11/28/17 08:45 Metoprolol Tartrate (Lopressor) 25 mg DAILY PO 11/25/17 09:00 11/28/17 08:46 Tamsulosin HCl (Flomax) 0.4 mg DAILY PO 11/25/17 09:00 11/28/17 08:46 Finasteride (Proscar) 5 mg DAILY PO 11/25/17 09:00 11/28/17 08:45 Prochlorperazine Edisylate (Compazine Inj) 10 mg Q6H PRN IV PUSH NAUSEA/VOMITING 11/24/17 21:45 11/25/17 18:08 Tramadol HCl (Ultram) 50 mg Q12H PO 11/25/17 10:00 11/28/17 08:46 Polyethylene Glycol (Miralax) 17 gm DAILY PO 11/26/17 09:00 11/28/17 08:50 Acetaminophen/ Hydrocodone Bitart (Biscoe 10-325 Mg) 1 tab Q4H PRN PO PAIN SCALE 6 TO 10 11/25/17 20:30 11/28/17 02:33 Lactated Ringer's 1,000 ml @ 30 mls/hr Q24H PRN IV SEE LABEL COMMENTS 11/27/17 04:30 11/30/17 04:29 Sodium Chloride 500 ml @ 30 mls/hr [id number] PRN IV SEE LABEL COMMENTS 11/27/17 04:30 11/30/17 04:29 Povidone Iodine (Betadine 5% Antisepsis Kit) 1 applic H[employer]IC[employer]URE INSTRUCTOR PRN EACH NARE SEE LABEL COMMENTS 11/27/17 04:30 11/30/17 04:29 Chlorhexidine Gluconate (Chlorhexidine 2% Cloth) 3 pack HORTICULTURE INSTRUCTOR PRN TOPICAL SEE LABEL COMMENTS 11/27/17 04:30 11/30/17 04:29 Hydromorphone HCl (Dilaudid Pf Inj) 0.2 mg Q4H PRN IV PUSH BREAKTHROUGH PAIN 11/27/17 10:15 11/28/17 08:39 Nystatin (Mycostatin Powder) 1 applic Q12HR TOPICAL 11/27/17 21:00 11/28/17 08:50 (Kezia Sierra) Current Medications Current Medications Morphine Sulfate (Morphine Inj) 2 mg ONCE ONCE IM Last administered on at 17:08; Start 11/24/17 at 17:00; Stop 11/24/17 at 17:01; Status DC Ondansetron HCl (Zofran Odt) 4 mg ONCE ONCE PO Last administered on 17:07; Start 11/24/17 at 17:00; Stop 11/24/17 at 17:01; Status DC Hydromorphone HCl (Dilaudid Pf Inj) 0.5 mg ONCE ONCE IVS ; Start 11/24/17 at 17 :45; Stop 11/24/17 at 17:46; Status Cancel Hydromorphone HCl (Dilaudid Pf Inj) 0.5 mg ONCE ONCE IV PUSH Last administered on 11/24/17at 17:47; Start 11/24/17 at 17:45; Stop 11/24/17 at 17:46 ; Status DC Iohexol (Omnipaque 350 Inj) 90 ml STK-MED ONCE IVCONTRAST Last administered on 11/24/17at 19:12; Start 11/24/17 at 19:12; Stop 11/24/17 at 19:13; Status DC Hydromorphone HCl (Dilaudid Pf Inj) 1 mg ONCE ONCE IV PUSH ; Start 11/24/17 at 19:30; Stop 11/24/17 at 19:31; Status Cancel Hydromorphone HCl (Dilaudid Pf Inj) 1 mg ONCE ONCE IV PUSH Last administered on 11/24/17at 19:35; Start 11/24/17 at 19:45; Stop 11/24/17 at 19:46; Status DC Sodium Chloride 1,000 ml @ 100 mls/hr Q10H IV Last administered on 11/25/17at 06:10; Start 11/24/17 at 19:52; Stop 11/25/17 at 09:14; Status DC Sodium Chloride (NS Flush) 2 ml UNSCH PRN IV FLUSH FLUSH AFTER USING IV ACCESS ; Start 11/24/17 at 20:00; Stop 11/30/17 at 17:31; Status DC Sodium Chloride (NS Flush) 2 ml BID IV FLUSH Last administered on 11/30/17at 09: 10; Start 11/24/17 at 21:00; Stop 11/30/17 at 17:31; Status DC Metoclopramide HCl (Reglan Inj) 5 mg Q6H PRN IV PUSH NAUSEA OR VOMITING Last administered on 11/30/17at 10:46; Start 11/24/17 at 20:00; Stop 11/30/17 at 17:31 ; Status DC Acetaminophen (Tylenol) 650 mg Q6H PRN PO FEVER/PAIN SCALE 1 TO 2; Start at 20:00; Stop 11/30/17 at 17:31; Status DC Acetaminophen/ Hydrocodone Bitart (Biscoe 5-325 Mg) 1 tab Q4H PRN PO PAIN SCALE 3 TO 5 Last administered on 11/26/17at 09:27; Start 11/24/17 at 20:00; Stop 11/30/17 at 17:31; Status DC Morphine Sulfate (Morphine Inj) 2 mg Q3H PRN IV PUSH Pain 6-10 Last administered on 11/25/17at 06:10; Start 11/24/17 at 20:00; Stop 11/25/17 at 09:14 ; Status DC Senna/Docusate Sodium (Jelly-Colace) 1 tab BID PO Last administered on at 09:09; Start 11/24/17 at 21:00; Stop 11/30/17 at 17:31; Status DC Magnesium Hydroxide (Milk Of Magnesia Liq) 30 ml Q12H PRN PO Mild constipation ; Start 11/24/17 at 20:00; Stop 11/30/17 at 17:31; Status DC Sennosides (Senokot) 17.2 mg Q12H PRN PO Moderate constipation Last administered on 11/28/17at 16:59; Start 11/24/17 at 20:00; Stop 11/30/17 at 17:31 ; Status DC Bisacodyl (Dulcolax Supp) 10 mg DAILY PRN RECTAL SEVERE CONSITIPATION; Start at 20:00; Stop 11/30/17 at 17:31; Status DC Lactulose (Lactulose Liq) 30 ml DAILY PRN PO SEVERE CONSITIPATION Last administered on 11/29/17at 13:10; Start 11/24/17 at 20:00; Stop 11/30/17 at 17:31 ; Status DC Amlodipine Besylate (Norvasc) 5 mg DAILY PO Last administered on 11/30/17at 09: 09; Start 11/25/17 at 09:00; Stop 11/30/17 at 17:31; Status DC Atorvastatin Calcium (Lipitor) 40 mg HS PO Last administered on 11/29/17at 20:35 ; Start 11/24/17 at 21:00; Stop 11/30/17 at 17:31; Status DC Cyanocobalamin (Vitamin B12) 1,000 mcg DAILY PO Last administered on 11/30/17at 09:07; Start 11/25/17 at 09:00; Stop 11/30/17 at 17:31; Status DC Metoprolol Tartrate (Lopressor) 25 mg DAILY PO Last administered on 11/30/17at 09:08; Start 11/25/17 at 09:00; Stop 11/30/17 at 17:31; Status DC Tamsulosin HCl (Flomax) 0.4 mg DAILY PO Last administered on 11/30/17at 09:08; Start 11/25/17 at 09:00; Stop 11/30/17 at 17:31; Status DC Finasteride (Proscar) 5 mg DAILY PO Last administered on 11/29/17at 09:13; Start 11/25/17 at 09:00; Stop 11/30/17 at 17:31; Status DC Prochlorperazine Edisylate (Compazine Inj) 10 mg Q6H PRN IV PUSH NAUSEA/ VOMITING Last administered on 11/25/17at 18:08; Start 11/24/17 at 21:45; Stop at 17:31; Status DC Tramadol HCl (Ultram) 50 mg Q12H PO Last administered on 11/29/17at 20:39; Start 11/25/17 at 10:00; Stop 11/30/17 at 17:31; Status DC Gadodiamide (Omniscan Pf Inj) 20 ml STK-MED ONCE IVCONTRAST Last administered on 11/25/17at 14:37; Start 11/25/17 at 14:37; Stop 11/25/17 at 14:38; Status DC Polyethylene Glycol (Miralax) 17 gm DAILY PO Last administered on 11/30/17at 09: 06; Start 11/26/17 at 09:00; Stop 11/30/17 at 17:31; Status DC Acetaminophen/ Hydrocodone Bitart (Biscoe 10-325 Mg) 1 tab Q4H PRN PO PAIN SCALE 6 TO 10 Last administered on 11/30/17at 16:21; Start 11/25/17 at 20:30; Stop 11/30/17 at 17:31; Status DC Hydromorphone HCl (Dilaudid Pf Inj) 0.5 mg ONCE ONCE IV PUSH Last administered on 11/25/17at 23:04; Start 11/25/17 at 22:45; Stop 11/25/17 at 22:58 ; Status DC Lactated Ringer's 1,000 ml @ 30 mls/hr Q24H PRN IV SEE LABEL COMMENTS; Start at 04:30; Stop 11/30/17 at 04:29; Status DC Sodium Chloride 500 ml @ 30 mls/hr [id number] PRN IV SEE LABEL COMMENTS; Start at 04:30; Stop 11/30/17 at 04:29; Status DC Povidone Iodine (Betadine 5% Antisepsis Kit) 1 applic H[employer]ICULTURE INSTRUCTOR PRN EACH NARE SEE LABEL COMMENTS; Start 11/27/17 at 04:30; Stop 11/30/17 at 04:29; Status DC Chlorhexidine Gluconate (Chlorhexidine 2% Cloth) 3 pack HORTICULTURE INSTRUCTOR PRN TOPICAL SEE LABEL COMMENTS; Start 11/27/17 at 04:30; Stop 11/30/17 at 04:29; Status DC Hydromorphone HCl (Dilaudid Pf Inj) 0.2 mg Q4H PRN IV PUSH BREAKTHROUGH PAIN Last administered on 11/28/17at 08:39; Start 11/27/17 at 10:15; Stop 11/30/17 at 17:31; Status DC Midazolam HCl (Versed Inj) 5 mg STK-MED ONCE .ROUTE Last administered on at 14:02; Start 11/27/17 at 14:02; Stop 11/27/17 at 14:03; Status DC Fentanyl Citrate (fentaNYL INJ) 250 mcg STK-MED ONCE .ROUTE Last administered on 11/27/17at 14:02; Start 11/27/17 at 14:02; Stop 11/27/17 at 14:03; Status DC Bupivacaine HCl (Marcaine Pf 0.75% Inj) 30 ml STK-MED ONCE .ROUTE Last administered on 11/27/17at 14:45; Start 11/27/17 at 14:14; Stop 11/27/17 at 14:15 ; Status DC Nystatin (Mycostatin Powder) 1 applic Q12HR TOPICAL Last administered on at 09:17; Start 11/27/17 at 21:00; Stop 11/30/17 at 17:31; Status DC (Casey Cat MD) Medical Decision Making MDM Remarks 82 y/o male with lumbar pathological fracture s/p CT guided biopsy, awaiting pathology (Kezia Sierra) Plan Plan Remarks cont nonsurgical management of fracture at this time, f/u on results of biopsy cont supportive care custom TLSO brace (Kezia Sierra) Attending Statement 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 A biopsy has been ordered. The CT of his chest shows multiple nodules suspicious for lung cancer, which could potentially be his primary neoplasm, which had metastasized to the spine. I have discussed with the patient in the alternatives of treatment including the possibility of surgical procedure for a stabilization of his spine. We have discussed the details including the [id number] details of the surgical procedure, its indications, alternatives, risks, and potential complications. Risks and potential complications include, but are not limited to, infection, blood loss, CSF leak, partial or complete loss of sight in one or both eyes, paresis, paralysis, permanent pain or difficulty swallowing, loss of bowel or bladder function, complications from anesthesia, blood clot, stroke, myocardial infarction, or even . Hypertension: Continue current medications. Blood pressure likely elevated secondary to pain. Atrial fibrillation: Rate controlled. Continue metoprolol. Eliquis on hold. A thoracolumbar orthosis has been ordered for support Pain controlled with narcotic analgesics Continue aggressive pulmonary toilette, nasotracheal suction, and breathing treatments with nebulizers. Daily PT and OT Renal. Continue to monitor closely urine output, BUN and creatinine Endocrine. Continue to Monitor serial Acu checks and SSI as needed in detail ID continue to monitor for signs of infection Continue Protonix for stress ulcer prophylaxis Continue Dedrick hose and SCD's for DVT prophylaxis Further recommendations will be provided depending on the patient's clinical evaluation and follow up studies. Discuss it with Dr. Micah Fink The exam, history, and the medical decision-making described in the above note were completed with the assistance of the mid-level provider. I reviewed and agree with the findings presented. I attest that I had a [id number] encounter with the patient on the same day, and personally performed and documented my assessment and findings in the medical record. (Casey Cat MD) Kezia Sierra Nov 28, 2017 16:20 Casey Cat MD Dec 01, 2017 19:22
[2017-11-28] MEDS: SENNOSIDES 8.6 MG TAB PO PRN (16:59)
[2017-11-28 17:51] LABS: ALB/GLOB RATIO (SPE) 1.21 (1.39-2.23)
--- NOTE | 2017-11-28 19:14 | PD.ONC.PN ---
Subjective Subjective Remarks Inpatient to get home. Minimal back pain as long as he is supine. Objective Data Date Time Temp Pulse Resp B/P (MAP) Pulse Ox O2 Delivery O2 Flow Rate FiO2 11/28/17 16:52 Room Air 11/28/17 16:00 98.8 70 18 188/87 (120) 96 11/28/17 12:00 98.3 72 18 130/69 (89) 94 11/28/17 08:00 98.4 68 17 185/87 (119) 95 11/28/17 05:36 98.4 64 20 144/66 (92) 94 11/28/17 03:37 18 11/28/17 00:21 Nasal Cannula 2.00 11/28/17 00:12 97.2 65 20 132/64 (86) 95 11/27/17 22:02 18 11/27/17 21:32 97.3 68 20 150/87 (108) 94 11/27/17 21:20 Nasal Cannula 2.00 Result Diagram: 11/25/1761011/25/17 0611 Administered Medications Medications (Trade) Dose Ordered Sig/Se Route PRN Reason Start Time Stop Time Status Last Admin Dose Admin Sodium Chloride (NS Flush) 2 ml BID IV FLUSH 11/24/17 21:00 11/28/17 08:46 Metoclopramide HCl (Reglan Inj) 5 mg Q6H PRN IV PUSH NAUSEA OR VOMITING 11/24/17 20:00 11/26/17 16:34 Acetaminophen/ Hydrocodone Bitart (Kimper 5-325 Mg) 1 tab Q4H PRN PO PAIN SCALE 3 TO 5 11/24/17 20:00 11/26/17 09:27 Senna/Docusate Sodium (Jelly-Colace) 1 tab BID PO 11/24/17 21:00 11/28/17 08:45 Sennosides (Senokot) 17.2 mg Q12H PRN PO Moderate constipation 11/24/17 20:00 11/28/17 16:59 Amlodipine Besylate (Norvasc) 5 mg DAILY PO 11/25/17 09:00 11/28/17 08:43 Atorvastatin Calcium (Lipitor) 40 mg HS PO 11/24/17 21:00 11/27/17 20:38 Cyanocobalamin (Vitamin B12) 1,000 mcg DAILY PO 11/25/17 09:00 11/28/17 08:45 Metoprolol Tartrate (Lopressor) 25 mg DAILY PO 11/25/17 09:00 11/28/17 08:46 Tamsulosin HCl (Flomax) 0.4 mg DAILY PO 11/25/17 09:00 11/28/17 08:46 Finasteride (Proscar) 5 mg DAILY PO 11/25/17 09:00 11/28/17 08:45 Prochlorperazine Edisylate (Compazine Inj) 10 mg Q6H PRN IV PUSH NAUSEA/VOMITING 11/24/17 21:45 11/25/17 18:08 Tramadol HCl (Ultram) 50 mg Q12H PO 11/25/17 10:00 11/28/17 08:46 Polyethylene Glycol (Miralax) 17 gm DAILY PO 11/26/17 09:00 11/28/17 08:50 Acetaminophen/ Hydrocodone Bitart (Kimper 10-325 Mg) 1 tab Q4H PRN PO PAIN SCALE 6 TO 10 11/25/17 20:30 11/28/17 16:46 Hydromorphone HCl (Dilaudid Pf Inj) 0.2 mg Q4H PRN IV PUSH BREAKTHROUGH PAIN 11/27/17 10:15 11/28/17 08:39 Nystatin (Mycostatin Powder) 1 applic Q12HR TOPICAL 11/27/17 21:00 11/28/17 08:50 Objective Remarks GENERAL: Well-nourished, well-developed patient. SKIN: Warm and dry. HEAD: Normocephalic. EYES: No scleral icterus. No injection or drainage. NECK: Supple, trachea midline. No JVD or lymphadenopathy. LYMPHATIC: No adenopathy. CARDIOVASCULAR: Regular rate and rhythm without murmurs. RESPIRATORY: Breath sounds equal bilaterally. No accessory muscle use. GASTROINTESTINAL: Abdomen soft, non-tender, nondistended. EXTREMITIES: Trace edema MUSCULOSKELETAL: Adequate muscle tone. NEUROLOGICAL: No obvious focal deficit. Awake, alert, and oriented x3. PSYCHIATRIC: Appropriate mood and affect; insight and judgment normal. Assessment/Plan Assessment 1. Picture remains consistent with metastatic disease. Pathology is still pending. Immune studies do not support a diagnosis of myeloma to date. Await path report and considerations still remain lung cancer and melanoma. Both Dr. Cat and I spoke with the patient together. We asked him to stay in the hospital until we have the path report back as it will be difficult to coordinate his care as an outpatient as it will involve medical oncology, neurosurgery, and possibly hospice and palliative care depending on what is found. I contacted the pathology department and was told that the results would probably be out late today. I told the patient this and he is presently willing to stay an extra day. I think it would be a bad idea for him to go home before we have a diagnosis. Micah Fink MD Nov 28, 2017 19:13
[2017-11-28 20:00] VITALS: BP 171/80; PULSE 75; RESP 21; TEMP 97.7; O2SAT 95
[2017-11-28] MEDS: ATORVASTATIN 40 MG TAB PO SCH (20:21)
[2017-11-29] VITALS: BP 131/70; PULSE 68; RESP 20; TEMP 97.6; O2SAT 95
[2017-11-29 04:00] VITALS: BP 149/78; PULSE 62; RESP 18; TEMP 97.8; O2SAT 98
[2017-11-29] MEDS: ACETAMINOPHEN/HYDROcodone 325 MG/10 MG TAB PO PRN ×3 (05:17→17:05)
[2017-11-29 08:00] VITALS: BP 142/68; PULSE 71; RESP 16; TEMP 98.4; O2SAT 95
[2017-11-29] MEDS: TAMSULOSIN HCL 0.4 MG CAP PO SCH (09:00)
[2017-11-29] MEDS: POLYETHYLENE GLYCOL 17 GM PKG PO SCH (09:10)
[2017-11-29] MEDS: METOPROLOL TARTRATE 25 MG TAB PO SCH (09:12)
[2017-11-29] MEDS: DOCUSATE SODIUM 50 MG/SENNA 8.6 MG TAB PO SCH ×2 (09:12→20:35)
[2017-11-29] MEDS: FINASTERIDE 5 MG TAB PO SCH (09:13)
[2017-11-29] MEDS: amLODIPine BESYLATE 5 MG TAB PO SCH (09:14)
[2017-11-29] MEDS: CYANOCOBALAMIN 1,000 MCG TAB PO SCH (09:15)
[2017-11-29] MEDS: traMADol HCL 50 MG TAB PO SCH ×2 (09:15→20:39)
[2017-11-29] MEDS: SODIUM CHLORIDE 0.9% FLUSH 10 ML FLUSH IV FLUSH SCH ×2 (09:16→20:39)
[2017-11-29] MEDS: NYSTATIN 100,000 U/GM PWD 15 GM BTL TOPICAL SCH ×2 (09:17→21:00)
[2017-11-29 09:35] VITALS: O2SAT 93
--- NOTE | 2017-11-29 09:54 | PD.ONC.PN ---
Subjective Subjective Remarks Afebrile overnight. Patient resting in bed with . No complaints. wants to know when he can go home. Objective Data Date Time Temp Pulse Resp B/P (MAP) Pulse Ox O2 Delivery O2 Flow Rate FiO2 11/29/17 09:24 Room Air 11/29/17 08:00 98.4 71 16 142/68 (92) 95 11/29/17 04:00 97.8 62 18 149/78 (101) 98 11/29/17 00:00 97.6 68 20 131/70 (90) 95 11/28/17 20:20 96 Room Air 11/28/17 20:00 97.7 75 21 171/80 (110) 95 11/28/17 16:52 Room Air 11/28/17 16:00 98.8 70 18 188/87 (120) 96 11/28/17 12:00 98.3 72 18 130/69 (89) 94 11/29/17 11/29/17 11/29/17 07:00 15:00 23:00 Intake Total 680 ml Output Total 700 ml Balance -20 ml Result Diagram: 11/25/1761011/25/17610 Administered Medications Medications (Trade) Dose Ordered Sig/Se Route PRN Reason Start Time Stop Time Status Last Admin Dose Admin Sodium Chloride (NS Flush) 2 ml BID IV FLUSH 11/24/17 21:00 11/29/17 09:16 Metoclopramide HCl (Reglan Inj) 5 mg Q6H PRN IV PUSH NAUSEA OR VOMITING 11/24/17 20:00 11/26/17 16:34 Acetaminophen/ Hydrocodone Bitart (Bonita 5-325 Mg) 1 tab Q4H PRN PO PAIN SCALE 3 TO 5 11/24/17 20:00 11/26/17 09:27 Senna/Docusate Sodium (Jelly-Colace) 1 tab BID PO 11/24/17 21:00 11/29/17 09:12 Sennosides (Senokot) 17.2 mg Q12H PRN PO Moderate constipation 11/24/17 20:00 11/28/17 16:59 Amlodipine Besylate (Norvasc) 5 mg DAILY PO 11/25/17 09:00 11/29/17 09:14 Atorvastatin Calcium (Lipitor) 40 mg HS PO 11/24/17 21:00 11/28/17 20:21 Cyanocobalamin (Vitamin B12) 1,000 mcg DAILY PO 11/25/17 09:00 11/29/17 09:15 Metoprolol Tartrate (Lopressor) 25 mg DAILY PO 11/25/17 09:00 11/29/17 09:12 Tamsulosin HCl (Flomax) 0.4 mg DAILY PO 11/25/17 09:00 11/28/17 08:46 Finasteride (Proscar) 5 mg DAILY PO 11/25/17 09:00 11/29/17 09:13 Prochlorperazine Edisylate (Compazine Inj) 10 mg Q6H PRN IV PUSH NAUSEA/VOMITING 11/24/17 21:45 11/25/17 18:08 Tramadol HCl (Ultram) 50 mg Q12H PO 11/25/17 10:00 11/29/17 09:15 Polyethylene Glycol (Miralax) 17 gm DAILY PO 11/26/17 09:00 11/29/17 09:10 Acetaminophen/ Hydrocodone Bitart (Bonita 10-325 Mg) 1 tab Q4H PRN PO PAIN SCALE 6 TO 10 11/25/17 20:30 11/29/17 05:17 Hydromorphone HCl (Dilaudid Pf Inj) 0.2 mg Q4H PRN IV PUSH BREAKTHROUGH PAIN 11/27/17 10:15 11/28/17 08:39 Nystatin (Mycostatin Powder) 1 applic Q12HR TOPICAL 11/27/17 21:00 11/29/17 09:17 Objective Remarks GENERAL: Elderly male, sitting up in bed in nad. at bedside. SKIN: Warm and dry. HEAD: Normocephalic. EYES: No scleral icterus. No injection or drainage. NECK: Supple, trachea midline. CARDIOVASCULAR: Regular rate and rhythm RESPIRATORY: Breath sounds equal bilaterally. No accessory muscle use. GASTROINTESTINAL: Abdomen soft, non-tender, nondistended. EXTREMITIES: No cyanosis NEUROLOGICAL: awake and alert. normal speech. Assessment/Plan Assessment 82y/o male with suspected metastatic disease. Plan 1. dr. agarwal had an extensive discussion with Dr. Bojorquez in pathology this AM and reviewed slides. final pathology is still pending but differential includes and favors melanoma vs lung cancer. this was discussed with the patient and his at length. we discussed that he will need to have a discussion with Dr. Cat about whether surgery is warranted. we discussed in detail the potential treatments for melanoma. we discussed the option for no treatment. Dr. Agarwal called and spoke with both Dr. Cat as well as Rad oncologist Dr. Hernandez. we will place consult for Dr. Hernandez so the patient will be established with radiation oncology prior to discharge. 2. the patient can be discharged home when cleared by neurosurgery. Attending Statement The exam, history, and the medical decision-making described in the above note were completed with the assistance of the mid-level provider. I reviewed and agree with the findings presented. I attest that I had a [id number] encounter with the patient on the same day, and personally performed and documented my assessment and findings in the medical record. Slides reviewed with Dr. Luevano. There are definite malignant cells in the bone biopsy. The differential appeared to be between melanoma and a lung cancer. Dr. Luevano contacted me later this afternoon and the stains for melanoma were negative and therefore this is more consistent with a lung cancer. Unfortunately there is not a lot of material to work with. There will be further studies to determine if this is a squamous cell cancer or adenocarcinoma. If this is a lung cancer and there is adequate material then I will request additional studies. I also asked her to look at any staining for urothelial carcinoma as this would be another cancer which could behave in a similar manner. Hopefully we will have more information tomorrow. If the patient does not undergo neurosurgery for the back I believe he would potentially benefit from radiation. I contacted Dr. Buster hernandez who has taken care of the patient's . He will see the patient and make recommendations for possible radiation to the lumbosacral area where there is extensive tumor. Daja Delarosa Nov 29, 2017 09:54 Micah Agarwal MD Nov 29, 2017 18:44
[2017-11-29 11:00] VITALS: BP 167/78; PULSE 65; RESP 18; TEMP 98.2; O2SAT 94
--- NOTE | 2017-11-29 12:47 | HHI.PR ---
Subjective Remarks Follow up back pain. Patient states that he feels better today. Pain is well controlled. He wants to go home. Objective Vitals Vital Signs Date Time Temp Pulse Resp B/P (MAP) Pulse Ox O2 Delivery O2 Flow Rate FiO2 11/29/17 11:00 98.2 65 18 167/78 (107) 94 11/29/17 09:24 Room Air 11/29/17 08:00 98.4 71 16 142/68 (92) 95 11/29/17 04:00 97.8 62 18 149/78 (101) 98 11/29/17 00:00 97.6 68 20 131/70 (90) 95 11/28/17 20:20 96 Room Air 11/28/17 20:00 97.7 75 21 171/80 (110) 95 11/28/17 16:52 Room Air 11/28/17 16:00 98.8 70 18 188/87 (120) 96 I/O 11/28/17 11/28/17 11/28/17 11/29/17 11/29/17 11/29/17 07:00 15:00 23:00 07:00 15:00 23:00 Intake Total 680 ml Output Total 700 ml Balance -20 ml Intake Oral 680 ml Output Urine Total 700 ml Result Diagram: 11/25/17 0611 11/25/17 0611 Imaging Last Impressions Needle Biopsy X-Ray 11/27/17 0000 Signed Impressions: CONCLUSION: 1. Uncomplicated fluoroscopic-guided L3 biopsy, as above. Lumbar Spine MRI 11/25/17 0000 Signed Impressions: CONCLUSION: Multifocal signal abnormalities characteristic of a neoplastic process involvin g the marrow. Areas of involvement include the L1 vertebral body with associate d compression deformity), posterior inferior L2, and L3. The L3 involvement ext ends into the pedicles bilaterally and there is evidence of extraosseous soft t issue extension about the left and posterior L3 vertebral body with soft tissue extension replacing the left neural foramen. Chest CT 11/25/17 0000 Signed Impressions: CONCLUSION: 1. Numerous subcentimeter lung nodules characteristic of metastatic disease. T here is also a slightly irregular 2 cm nodule anterior segment right upper lobe that could represent primary lung malignancy or metastatic disease. 2. No adenopathy or significant effusion. Probable pathologic severe compressi on deformity at L1. Lumbar Spine CT 11/24/17 3243 Signed Impressions: CONCLUSION: 1. Osteopenia with lytic bone destruction at L3 and probable pathologic severe compression fracture of L1. Primary differential diagnosis is myeloma or metas tatic disease. 2. Multilevel canal stenosis as above. 3. Grade 1 anterolisthesis of L5 on S1 with severe bilateral foraminal stenosi s. Abdomen/Pelvis CT 11/24/17 0979 Signed Impressions: CONCLUSION: 1. Lytic bone destruction of L3 with likely pathologic fractures of L3 and L1. Primary differential diagnosis is metastatic disease or myeloma. 2. Stable appearance of bilateral renal cysts, nonobstructing renal calculi an d hepatic cysts February 2017. Objective Remarks General: Elderly male in no acute distress. Heart: Regular rate and rhythm. No murmur. Lungs: Clear to auscultation bilaterally. No wheezes, rales, or rhonchi. Breathing is nonlabored. Abdomen: Soft, nontender, nondistended. Extremities: No lower extremity edema. Psych: Alert and oriented. Neuro: Normal speech. No focal deficits noted. Procedures 11/27/17 fluoroscopic guided L3 biopsy Urinary Catheter: No Vascular Central Line Catheter: No A/P Problem List: (1) Afib ICD Code: I48.91 - Unspecified atrial fibrillation (2) Pathologic compression fracture of lumbar vertebra ICD Code: M48.56XA - Collapsed vertebra, not elsewhere classified, lumbar region, initial encounter for fracture Status: Acute (3) Intractable back pain ICD Code: M54.9 - Dorsalgia, unspecified Status: Acute (4) HTN (hypertension) ICD Code: I10 - Essential (primary) hypertension Assessment and Plan 1. Pathologic compression fracture, lumbar spine: Appreciate neurosurgery, radiology recommendations. Continue pain control. 2. Multiple lesions in the spine: Likely metastases. Status post fluoroscopic guided L3 biopsy. Pathology pending. Appreciate oncology recommendations. Apparently oncology discussed the pathology with the pathologist and the diagnosis favors malignancy. Radiation oncology consulted. 3. Hypertension: Continue current medications. Blood pressure likely elevated secondary to pain. 4. Atrial fibrillation: Rate controlled. Continue metoprolol. Eliquis on hold. 5. DVT prophylaxis: SCDs, EMIGDIO hose. Eliquis on hold. Discharge Planning Cleared for discharge by oncology. Radiation oncology consult pending. Plan for discharge home when cleared by neurosurgery. Problem Qualifiers (1) Pathologic compression fracture of lumbar vertebra: Qualified Codes: M48.56XA - Collapsed vertebra, not elsewhere classified, lumbar region, initial encounter for fracture Coleman Gonzalez MD Nov 29, 2017 12:47
--- NOTE | 2017-11-29 17:04 | HHI.NSPN ---
(Kezia Sierra) Note Status Status: Progress Note (Kezia Sierra) Interval History Interval History Mr. Catherine is a 82 year old male who presents to [facility] for intractable low back pain. Mr. Catherine has a history of chronic back pain in which he undergoes physical therapy. However over the past 2 months his pain has been getting worse and much worse over the last several days. He denies any associated trauma or falls. He reports his pain is located in the lower back with pain also radiating down both lower extremity in the mid anterior thighs. He denies fevers, chills, focal weakness, bowel or bladder incontinence. His pain is worsened with movement and improves when he lay still. He has a history of skin melanoma that was excised. Workup shows pathological lumbar fracture. Neurosurgical evaluation is requested. 11/28: pathology still pending, wants to go home if pathology will take few days. 11/29: no changes in symptoms, would like to try nonsurgical management at this time, if no improvement then may decide on surgery (Kezia Sierra) Labs, Micro, & Vital Signs Results Date Time Temp Pulse Resp B/P (MAP) Pulse Ox O2 Delivery O2 Flow Rate FiO2 11/29/17 11:00 98.2 65 18 167/78 (107) 94 11/29/17 09:35 93 21 11/29/17 09:24 Room Air 11/29/17 08:00 98.4 71 16 142/68 (92) 95 11/29/17 04:00 97.8 62 18 149/78 (101) 98 11/29/17 00:00 97.6 68 20 131/70 (90) 95 11/28/17 20:20 96 Room Air 11/28/17 20:00 97.7 75 21 171/80 (110) 95 Constitutional Vital Signs Date Time Temp Pulse Resp B/P (MAP) Pulse Ox O2 Delivery O2 Flow Rate FiO2 11/29/17 11:00 98.2 65 18 167/78 (107) 94 11/29/17 09:35 93 21 11/29/17 09:24 Room Air 11/29/17 08:00 98.4 71 16 142/68 (92) 95 11/29/17 04:00 97.8 62 18 149/78 (101) 98 11/29/17 00:00 97.6 68 20 131/70 (90) 95 11/28/17 20:20 96 Room Air 11/28/17 20:00 97.7 75 21 171/80 (110) 95 (Kezia Sierra) Review of Systems Constitutional: DENIES: Fever, Chills Cardiovascular: DENIES: Chest pain Musculoskeletal: COMPLAINS OF: Back pain (Kezia Sierra) Physical Exam GENERAL: Resting in bed in no acute distress HEENT: Head is normocephalic. Sclerae and conjunctivae are normal. Oropharynx unremarkable. NECK: There is no cervical, supraclavicular, axillary or inguinal adenopathy. HEART: Regular rate and rhythm. Occasional premature beat. LUNGS: Clear, without rales, wheezes or rhonchi. ABDOMEN: Without hepatosplenomegaly or masses. EXTREMITIES: Trace edema. MUSCULOSKELETAL: There is tenderness of the lower back. NEUROLOGIC: The patient is alert, awake and oriented to time, place and person. Speech is fluent. Cranial nerve examination: pupils to be equal, round and reactive to light. Extra-ocular movements are intact. Facial motor and sensory function are normal and symmetrical. Gross hearing appears intact. Sternocleidomastoid and trapezius muscles are symmetrical. Other cranial nerves are intact. Muscle strength is normal in all muscle groups of both upper and lower extremities. Sensory examination is intact to light touch and pin prick in both the upper and lower extremities. Deep tendon reflexes are symmetrical in both upper and lower extremities. There is a bilateral plantar flexion response. Cerebellar examination is unremarkable, without deficits. SKIN: Unremarkable. (Kezia Sierra) GENERAL: Mr Catherine is in no acute distress HEENT: Head is normocephalic. Sclerae and conjunctivae are normal. Oropharynx unremarkable. NECK: There is no cervical, supraclavicular, axillary or inguinal adenopathy. HEART: Regular rate and rhythm. Occasional premature beat. LUNGS: Clear, without rales, wheezes or rhonchi. ABDOMEN: Without hepatosplenomegaly or masses. EXTREMITIES: Trace edema. MUSCULOSKELETAL: There is tenderness of the lower back. NEUROLOGIC: The patient is alert, awake and oriented to time, place and person. Speech is fluent. Cranial nerve examination: pupils to be equal, round and reactive to light. Extra-ocular movements are intact. Facial motor and sensory function are normal and symmetrical. Gross hearing appears intact. Sternocleidomastoid and trapezius muscles are symmetrical. Other cranial nerves are intact. Muscle strength is normal in all muscle groups of both upper and lower extremities. Sensory examination is intact to light touch and pin prick in both the upper and lower extremities. Deep tendon reflexes are symmetrical in both upper and lower extremities. There is a bilateral plantar flexion response. Cerebellar examination normal SKIN: Warm and dry (Casey Cat MD) Medications Current Medications Current Medications Medications (Trade) Dose Ordered Sig/Se Route PRN Reason Start Time Stop Time Status Last Admin Dose Admin Sodium Chloride (NS Flush) 2 ml UNSCH PRN IV FLUSH FLUSH AFTER USING IV ACCESS 11/24/17 20:00 Sodium Chloride (NS Flush) 2 ml BID IV FLUSH 11/24/17 21:00 11/29/17 09:16 Metoclopramide HCl (Reglan Inj) 5 mg Q6H PRN IV PUSH NAUSEA OR VOMITING 11/24/17 20:00 11/26/17 16:34 Acetaminophen (Tylenol) 650 mg Q6H PRN PO FEVER/PAIN SCALE 1 TO 2 11/24/17 20:00 Acetaminophen/ Hydrocodone Bitart ([place] 5-325 Mg) 1 tab Q4H PRN PO PAIN SCALE 3 TO 5 11/24/17 20:00 11/26/17 09:27 Senna/Docusate Sodium (Jelly-Colace) 1 tab BID PO 11/24/17 21:00 11/29/17 09:12 Magnesium Hydroxide (Milk Of Magnesia Liq) 30 ml Q12H PRN PO Mild constipation 11/24/17 20:00 Sennosides (Senokot) 17.2 mg Q12H PRN PO Moderate constipation 11/24/17 20:00 11/28/17 16:59 Bisacodyl (Dulcolax Supp) 10 mg DAILY PRN RECTAL SEVERE CONSITIPATION 11/24/17 20:00 Lactulose (Lactulose Liq) 30 ml DAILY PRN PO SEVERE CONSITIPATION 11/24/17 20:00 11/29/17 13:10 Amlodipine Besylate (Norvasc) 5 mg DAILY PO 11/25/17 09:00 11/29/17 09:14 Atorvastatin Calcium (Lipitor) 40 mg HS PO 11/24/17 21:00 11/28/17 20:21 Cyanocobalamin (Vitamin B12) 1,000 mcg DAILY PO 11/25/17 09:00 11/29/17 09:15 Metoprolol Tartrate (Lopressor) 25 mg DAILY PO 11/25/17 09:00 11/29/17 09:12 Tamsulosin HCl (Flomax) 0.4 mg DAILY PO 11/25/17 09:00 11/28/17 08:46 Finasteride (Proscar) 5 mg DAILY PO 11/25/17 09:00 11/29/17 09:13 Prochlorperazine Edisylate (Compazine Inj) 10 mg Q6H PRN IV PUSH NAUSEA/VOMITING 11/24/17 21:45 11/25/17 18:08 Tramadol HCl (Ultram) 50 mg Q12H PO 11/25/17 10:00 11/29/17 09:15 Polyethylene Glycol (Miralax) 17 gm DAILY PO 11/26/17 09:00 11/29/17 09:10 Acetaminophen/ Hydrocodone Bitart ([place] 10-325 Mg) 1 tab Q4H PRN PO PAIN SCALE 6 TO 10 11/25/17 20:30 11/29/17 13:06 Lactated Ringer's 1,000 ml @ 30 mls/hr Q24H PRN IV SEE LABEL COMMENTS 11/27/17 04:30 11/30/17 04:29 Sodium Chloride 500 ml @ 30 mls/hr [id number] PRN IV SEE LABEL COMMENTS 11/27/17 04:30 11/30/17 04:29 Povidone Iodine (Betadine 5% Antisepsis Kit) 1 applic SUPERVISOR CORE DRILLING PRN EACH NARE SEE LABEL COMMENTS 11/27/17 04:30 11/30/17 04:29 Chlorhexidine Gluconate (Chlorhexidine 2% Cloth) 3 pack SUPERVISOR CORE DRILLING PRN TOPICAL SEE LABEL COMMENTS 11/27/17 04:30 11/30/17 04:29 Hydromorphone HCl (Dilaudid Pf Inj) 0.2 mg Q4H PRN IV PUSH BREAKTHROUGH PAIN 11/27/17 10:15 11/28/17 08:39 Nystatin (Mycostatin Powder) 1 applic Q12HR TOPICAL 11/27/17 21:00 11/29/17 09:17 (Kezia Sierra) Current Medications Current Medications Morphine Sulfate (Morphine Inj) 2 mg ONCE ONCE IM Last administered on at 17:08; Start 11/24/17 at 17:00; Stop 11/24/17 at 17:01; Status DC Ondansetron HCl (Zofran Odt) 4 mg ONCE ONCE PO Last administered on at 17:07; Start 11/24/17 at 17:00; Stop 11/24/17 at 17:01; Status DC Hydromorphone HCl (Dilaudid Pf Inj) 0.5 mg ONCE ONCE IVS ; Start 11/24/17 at 17 :45; Stop 11/24/17 at 17:46; Status Cancel Hydromorphone HCl (Dilaudid Pf Inj) 0.5 mg ONCE ONCE IV PUSH Last administered on 11/24/17at 17:47; Start 11/24/17 at 17:45; Stop 11/24/17 at 17:46 ; Status DC Iohexol (Omnipaque 350 Inj) 90 ml STK-MED ONCE IVCONTRAST Last administered on 11/24/17at 19:12; Start 11/24/17 at 19:12; Stop 11/24/17 at 19:13; Status DC Hydromorphone HCl (Dilaudid Pf Inj) 1 mg ONCE ONCE IV PUSH ; Start 11/24/17 at 19:30; Stop 11/24/17 at 19:31; Status Cancel Hydromorphone HCl (Dilaudid Pf Inj) 1 mg ONCE ONCE IV PUSH Last administered on 11/24/17at 19:35; Start 11/24/17 at 19:45; Stop 11/24/17 at 19:46; Status DC Sodium Chloride 1,000 ml @ 100 mls/hr Q10H IV Last administered on 11/25/17at 06:10; Start 11/24/17 at 19:52; Stop 11/25/17 at 09:14; Status DC Sodium Chloride (NS Flush) 2 ml UNSCH PRN IV FLUSH FLUSH AFTER USING IV ACCESS ; Start 11/24/17 at 20:00; Stop 11/30/17 at 17:31; Status DC Sodium Chloride (NS Flush) 2 ml BID IV FLUSH Last administered on 11/30/17at 09: 10; Start 11/24/17 at 21:00; Stop 11/30/17 at 17:31; Status DC Metoclopramide HCl (Reglan Inj) 5 mg Q6H PRN IV PUSH NAUSEA OR VOMITING Last administered on 11/30/17at 10:46; Start 11/24/17 at 20:00; Stop 11/30/17 at 17:31 ; Status DC Acetaminophen (Tylenol) 650 mg Q6H PRN PO FEVER/PAIN SCALE 1 TO 2; Start at 20:00; Stop 11/30/17 at 17:31; Status DC Acetaminophen/ Hydrocodone Bitart ([place] 5-325 Mg) 1 tab Q4H PRN PO PAIN SCALE 3 TO 5 Last administered on 11/26/17at 09:27; Start 11/24/17 at 20:00; Stop 11/30/17 at 17:31; Status DC Morphine Sulfate (Morphine Inj) 2 mg Q3H PRN IV PUSH Pain 6-10 Last administered on 11/25/17at 06:10; Start 11/24/17 at 20:00; Stop 11/25/17 at 09:14 ; Status DC Senna/Docusate Sodium (Jelly-Colace) 1 tab BID PO Last administered on at 09:09; Start 11/24/17 at 21:00; Stop 11/30/17 at 17:31; Status DC Magnesium Hydroxide (Milk Of Magnesia Liq) 30 ml Q12H PRN PO Mild constipation ; Start 11/24/17 at 20:00; Stop 11/30/17 at 17:31; Status DC Sennosides (Senokot) 17.2 mg Q12H PRN PO Moderate constipation Last administered on 11/28/17at 16:59; Start 11/24/17 at 20:00; Stop 11/30/17 at 17:31 ; Status DC Bisacodyl (Dulcolax Supp) 10 mg DAILY PRN RECTAL SEVERE CONSITIPATION; Start at 20:00; Stop 11/30/17 at 17:31; Status DC Lactulose (Lactulose Liq) 30 ml DAILY PRN PO SEVERE CONSITIPATION Last administered on 11/29/17at 13:10; Start 11/24/17 at 20:00; Stop 11/30/17 at 17:31 ; Status DC Amlodipine Besylate (Norvasc) 5 mg DAILY PO Last administered on 11/30/17at 09: 09; Start 11/25/17 at 09:00; Stop 11/30/17 at 17:31; Status DC Atorvastatin Calcium (Lipitor) 40 mg HS PO Last administered on 11/29/17at 20:35 ; Start 11/24/17 at 21:00; Stop 11/30/17 at 17:31; Status DC Cyanocobalamin (Vitamin B12) 1,000 mcg DAILY PO Last administered on 11/30/17at 09:07; Start 11/25/17 at 09:00; Stop 11/30/17 at 17:31; Status DC Metoprolol Tartrate (Lopressor) 25 mg DAILY PO Last administered on 11/30/17at 09:08; Start 11/25/17 at 09:00; Stop 11/30/17 at 17:31; Status DC Tamsulosin HCl (Flomax) 0.4 mg DAILY PO Last administered on 11/30/17at 09:08; Start 11/25/17 at 09:00; Stop 11/30/17 at 17:31; Status DC Finasteride (Proscar) 5 mg DAILY PO Last administered on 11/29/17at 09:13; Start 11/25/17 at 09:00; Stop 11/30/17 at 17:31; Status DC Prochlorperazine Edisylate (Compazine Inj) 10 mg Q6H PRN IV PUSH NAUSEA/ VOMITING Last administered on 11/25/17at 18:08; Start 11/24/17 at 21:45; Stop at 17:31; Status DC Tramadol HCl (Ultram) 50 mg Q12H PO Last administered on 11/29/17at 20:39; Start 11/25/17 at 10:00; Stop 11/30/17 at 17:31; Status DC Gadodiamide (Omniscan Pf Inj) 20 ml STK-MED ONCE IVCONTRAST Last administered on 11/25/17at 14:37; Start 11/25/17 at 14:37; Stop 11/25/17 at 14:38; Status DC Polyethylene Glycol (Miralax) 17 gm DAILY PO Last administered on 11/30/17at 09: 06; Start 11/26/17 at 09:00; Stop 11/30/17 at 17:31; Status DC Acetaminophen/ Hydrocodone Bitart ([place] 10-325 Mg) 1 tab Q4H PRN PO PAIN SCALE 6 TO 10 Last administered on 11/30/17at 16:21; Start 11/25/17 at 20:30; Stop 11/30/17 at 17:31; Status DC Hydromorphone HCl (Dilaudid Pf Inj) 0.5 mg ONCE ONCE IV PUSH Last administered on 11/25/17at 23:04; Start 11/25/17 at 22:45; Stop 11/25/17 at 22:58 ; Status DC Lactated Ringer's 1,000 ml @ 30 mls/hr Q24H PRN IV SEE LABEL COMMENTS; Start at 04:30; Stop 11/30/17 at 04:29; Status DC Sodium Chloride 500 ml @ 30 mls/hr [id number] PRN IV SEE LABEL COMMENTS; Start at 04:30; Stop 11/30/17 at 04:29; Status DC Povidone Iodine (Betadine 5% Antisepsis Kit) 1 applic SUPERVISOR CORE DRILLING PRN EACH NARE SEE LABEL COMMENTS; Start 11/27/17 at 04:30; Stop 11/30/17 at 04:29; Status DC Chlorhexidine Gluconate (Chlorhexidine 2% Cloth) 3 pack SUPERVISOR CORE DRILLING PRN TOPICAL SEE LABEL COMMENTS; Start 11/27/17 at 04:30; Stop 11/30/17 at 04:29; Status DC Hydromorphone HCl (Dilaudid Pf Inj) 0.2 mg Q4H PRN IV PUSH BREAKTHROUGH PAIN Last administered on 11/28/17at 08:39; Start 11/27/17 at 10:15; Stop 11/30/17 at 17:31; Status DC Midazolam HCl (Versed Inj) 5 mg STK-MED ONCE .ROUTE Last administered on at 14:02; Start 11/27/17 at 14:02; Stop 11/27/17 at 14:03; Status DC Fentanyl Citrate (fentaNYL INJ) 250 mcg STK-MED ONCE .ROUTE Last administered on 11/27/17at 14:02; Start 11/27/17 at 14:02; Stop 11/27/17 at 14:03; Status DC Bupivacaine HCl (Marcaine Pf 0.75% Inj) 30 ml STK-MED ONCE .ROUTE Last administered on 11/27/17at 14:45; Start 11/27/17 at 14:14; Stop 11/27/17 at 14:15 ; Status DC Nystatin (Mycostatin Powder) 1 applic Q12HR TOPICAL Last administered on at 09:17; Start 11/27/17 at 21:00; Stop 11/30/17 at 17:31; Status DC (Casey Cat MD) Medical Decision Making MDM Remarks 82 y/o male with lumbar pathological fracture s/p CT guided biopsy, preliminary reports melanoma (Kezia Sierra) Plan Plan Remarks cont nonsurgical management of fracture at this time, cont supportive care awaiting custom TLSO brace, once obtained need upright xrays of lumbar spine ok to dc from NRS standpoint once upright xrays completed oncology following Dr. Cat again dw and patient, questions answered (Kezia Sierra) Attending Statement I discussed his condition at bedside with Dr Fink. 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 A biopsy, the patology has been reviewed. Looks like possible metastatic lung cancer The CT of his chest shows multiple nodules suspicious for lung cancer, which could potentially be his primary neoplasm, which had metastasized to the spine, which is supported by the pathology. His prognosis in that regard is guarded. I have discussed with the patient in the alternatives of treatment including the possibility of surgical procedure for a stabilization of his spine. We have discussed the details including the [id number] details of the surgical procedure, its indications, alternatives, risks, and potential complications. Risks and potential complications include, but are not limited to, infection, blood loss, CSF leak, partial or complete loss of sight in one or both eyes, paresis, paralysis, permanent pain or difficulty swallowing, loss of bowel or bladder function, complications from anesthesia, blood clot, stroke, myocardial infarction, or even . Hypertension: Continue current medications. Blood pressure likely elevated secondary to pain. Atrial fibrillation: Rate controlled. Continue metoprolol. Eliquis on hold. A thoracolumbar orthosis has been ordered for support Pain controlled with narcotic analgesics Continue aggressive pulmonary toilette, nasotracheal suction, and breathing treatments with nebulizers. Daily PT and OT Renal. Continue to monitor closely urine output, BUN and creatinine Endocrine. Continue to Monitor serial Acu checks and SSI as needed in detail ID continue to monitor for signs of infection Continue Protonix for stress ulcer prophylaxis Continue Dedrick hose and SCD's for DVT prophylaxis Further recommendations will be provided depending on the patient's clinical evaluation and follow up studies. The exam, history, and the medical decision-making described in the above note were completed with the assistance of the mid-level provider. I reviewed and agree with the findings presented. I attest that I had a [id number] encounter with the patient on the same day, and personally performed and documented my assessment and findings in the medical record. (Casey Cat MD) Kezia Sierra Nov 29, 2017 17:04 Casey Cat MD Dec 01, 2017 19:28
--- NOTE | 2017-11-29 17:26 | RADRPT ---
EXAM DATE: 11/29/2017 4:34 PM EDT AGE/SEX: 82 years / Male INDICATIONS: Multiple lumber fracture. Lower back pain. CLINICAL DATA: This is the patient's subsequent encounter. Patient reports that signs and symptoms h ave been present for 4 - 6 days and indicates a pain score of 5/10. MEDICAL/SURGICAL HISTORY: Hypertension. A-fib. Appendectomy. Cholecystectomy. COMPARISON: [facility], MRI LUMBAR SPINE W & W/O CONTRAST, 11/25/2017. . FINDINGS: There is a severe compression deformity at L1 vertebral body. This primarily involves the anterior an d midportion of the L1 vertebral body. There is relative preservation of the posterior aspect of L1. There is prominent concavity to the superior aspect of L3. There is lack of definition of the anterio r cortex which can be seen with fracture. There appears to be a grade 2 anterior spondylolisthesis of L5 on S1. CONCLUSION: Severe compression deformity at L1. Moderate compression deformity at L3. The lack of definition the anterior cortex of L3 could be secon lindsay to the fracture versus an underlying lesion. Grade 2 anterior spondylolisthesis of L5 on S1. Electronically signed by: Thor Keller MD 11/29/2017 5:25 PM EDT
[2017-11-29] MEDS: ATORVASTATIN 40 MG TAB PO SCH (20:35)
[2017-11-29 22:20] VITALS: BP 128/80; PULSE 68; RESP 20; TEMP 98; O2SAT 98
[2017-11-30 00:15] VITALS: BP 120/69; PULSE 66; RESP 19; TEMP 98; O2SAT 97
[2017-11-30] MEDS: ACETAMINOPHEN/HYDROcodone 325 MG/10 MG TAB PO PRN ×3 (02:49→16:21)
[2017-11-30 04:50] VITALS: BP 117/64; PULSE 62; RESP 20; TEMP 98; O2SAT 99
[2017-11-30 08:14] VITALS: O2SAT 92
[2017-11-30] MEDS: NYSTATIN 100,000 U/GM PWD 15 GM BTL TOPICAL SCH (09:00)
[2017-11-30] MEDS: FINASTERIDE 5 MG TAB PO SCH (09:00)
[2017-11-30] MEDS: POLYETHYLENE GLYCOL 17 GM PKG PO SCH (09:06)
[2017-11-30] MEDS: CYANOCOBALAMIN 1,000 MCG TAB PO SCH (09:07)
[2017-11-30] MEDS: TAMSULOSIN HCL 0.4 MG CAP PO SCH (09:08)
[2017-11-30] MEDS: METOPROLOL TARTRATE 25 MG TAB PO SCH (09:08)
[2017-11-30] MEDS: amLODIPine BESYLATE 5 MG TAB PO SCH (09:09)
[2017-11-30] MEDS: DOCUSATE SODIUM 50 MG/SENNA 8.6 MG TAB PO SCH (09:09)
[2017-11-30] MEDS: SODIUM CHLORIDE 0.9% FLUSH 10 ML FLUSH IV FLUSH SCH (09:10)
[2017-11-30 09:29] VITALS: BP 133/72; PULSE 61; RESP 20; TEMP 99; O2SAT 96
[2017-11-30] MEDS: traMADol HCL 50 MG TAB PO SCH (10:00)
[2017-11-30] MEDS: METOCLOPRAMIDE HCL 10 MG/2 ML VIAL IV PUSH PRN (10:46)
--- NOTE | 2017-11-30 10:47 | PD.ONC.PN ---
Subjective Subjective Remarks Afebrile overnight. Pt resting comfortably in bed. at bedside. Objective Data Date Time Temp Pulse Resp B/P (MAP) Pulse Ox O2 Delivery O2 Flow Rate FiO2 11/30/17 09:29 99.0 61 20 133/72 (92) 96 11/30/17 08:14 92 21 11/30/17 04:50 98.0 62 20 117/64 (81) 99 11/30/17 00:15 98.0 66 19 120/69 (86) 97 11/29/17 22:20 98.0 68 20 128/80 (96) 98 11/29/17 11:00 98.2 65 18 167/78 (107) 94 11/30/17 11/30/17 11/30/17 07:00 15:00 23:00 Intake Total 725 ml Output Total 900 ml Balance -175 ml Laboratory Results Last 72 hours Impressions Lumbar Spine X-Ray 11/29/17 0000 Signed Impressions: CONCLUSION: Severe compression deformity at L1. Moderate compression deformity at L3. The lack of definition the anterior paramjit x of L3 could be secondary to the fracture versus an underlying lesion. Grade 2 anterior spondylolisthesis of L5 on S1. Imaging Studies Last 72 hours Impressions Lumbar Spine X-Ray 11/29/17 0000 Signed Impressions: CONCLUSION: Severe compression deformity at L1. Moderate compression deformity at L3. The lack of definition the anterior paramjit x of L3 could be secondary to the fracture versus an underlying lesion. Grade 2 anterior spondylolisthesis of L5 on S1. Administered Medications Medications (Trade) Dose Ordered Sig/Se Route PRN Reason Start Time Stop Time Status Last Admin Dose Admin Sodium Chloride (NS Flush) 2 ml BID IV FLUSH 11/24/17 21:00 11/30/17 09:10 Metoclopramide HCl (Reglan Inj) 5 mg Q6H PRN IV PUSH NAUSEA OR VOMITING 11/24/17 20:00 11/26/17 16:34 Acetaminophen/ Hydrocodone Bitart ([place] 5-325 Mg) 1 tab Q4H PRN PO PAIN SCALE 3 TO 5 11/24/17 20:00 11/26/17 09:27 Senna/Docusate Sodium (Jelly-Colace) 1 tab BID PO 11/24/17 21:00 11/30/17 09:09 Sennosides (Senokot) 17.2 mg Q12H PRN PO Moderate constipation 11/24/17 20:00 11/28/17 16:59 Lactulose (Lactulose Liq) 30 ml DAILY PRN PO SEVERE CONSITIPATION 11/24/17 20:00 11/29/17 13:10 Amlodipine Besylate (Norvasc) 5 mg DAILY PO 11/25/17 09:00 11/30/17 09:09 Atorvastatin Calcium (Lipitor) 40 mg HS PO 11/24/17 21:00 11/29/17 20:35 Cyanocobalamin (Vitamin B12) 1,000 mcg DAILY PO 11/25/17 09:00 11/30/17 09:07 Metoprolol Tartrate (Lopressor) 25 mg DAILY PO 11/25/17 09:00 11/30/17 09:08 Tamsulosin HCl (Flomax) 0.4 mg DAILY PO 11/25/17 09:00 11/30/17 09:08 Finasteride (Proscar) 5 mg DAILY PO 11/25/17 09:00 11/29/17 09:13 Prochlorperazine Edisylate (Compazine Inj) 10 mg Q6H PRN IV PUSH NAUSEA/VOMITING 11/24/17 21:45 11/25/17 18:08 Tramadol HCl (Ultram) 50 mg Q12H PO 11/25/17 10:00 11/29/17 20:39 Polyethylene Glycol (Miralax) 17 gm DAILY PO 11/26/17 09:00 11/30/17 09:06 Acetaminophen/ Hydrocodone Bitart ([place] 10-325 Mg) 1 tab Q4H PRN PO PAIN SCALE 6 TO 10 11/25/17 20:30 11/30/17 09:08 Hydromorphone HCl (Dilaudid Pf Inj) 0.2 mg Q4H PRN IV PUSH BREAKTHROUGH PAIN 11/27/17 10:15 11/28/17 08:39 Nystatin (Mycostatin Powder) 1 applic Q12HR TOPICAL 11/27/17 21:00 11/29/17 09:17 Objective Remarks GENERAL: Well-nourished, elderly male, resting comfortably in bed, in nad. SKIN: Warm and dry. HEAD: Normocephalic. EYES: No scleral icterus. No injection or drainage. NECK: Supple, trachea midline. CARDIOVASCULAR: +S1/S2. Regular rate and rhythm without murmurs. RESPIRATORY: Breath sounds clear, equal bilaterally. No accessory muscle use. GASTROINTESTINAL: Abdomen large, soft, non-tender, non distended EXTREMITIES: No cyanosis, or edema. NEUROLOGICAL: No obvious focal deficit. Awake, alert, and oriented x3. PSYCHIATRIC: Appropriate mood, flat affect; insight and judgment normal. Assessment/Plan Assessment 82y/o male with suspected metastatic disease. Plan 1. Stains for melanoma negative. Final pathology is still pending. We will await confirmatory pathology and proceed with radiation to the back. Dr. Hernandez was consulted and the patient was evaluated for radiation to his back. He will follow-up [facility] home Dr. Fink as an outpatient for treatment plan in 2 weeks. This was discussed with the patient and his at length. Patient demographics faxed to new patient referrals. 2.Pt cleared from an oncology standpoint for discharge. Attending Statement The exam, history, and the medical decision-making described in the above note were completed with the assistance of the mid-level provider. I reviewed and agree with the findings presented. I attest that I had a [id number] encounter with the patient on the same day, and personally performed and documented my assessment and findings in the medical record. Final pathology pathology most consistent with lung cancer, GI cancer, or breast cancer. I spoke with Dr. hernandez this morning. The patient does not desire to proceed with surgery. I convinced him of the importance of going ahead with radiation therapy to the lumbar spine. Following this he can make a decision about systemic therapy. I asked Dr. Luevano to try to do staining for PDL 1. Unfortunately there is not a lot of material available. I believe this would preclude staining for AlK, EGFR, Ross and BRAF. If he is PDL 1 positive at 50% or greater than he could receive immunotherapy as a single agent. He does not want chemotherapy. I would also consider doing an upper endoscopy given that this could be a GI cancer. This would not be a usual presentation for a colon cancer but a gastric cancer or an esophageal cancer could spread to bone and lung. He is not sure what he wants to do. These decisions can be made as an outpatient but at the present time he is committed to proceeding with radiation therapy to the lumbar spine. He can go home. Saida Zelaya Nov 30, 2017 10:47 Micah Fink MD Nov 30, 2017 18:15
[2017-11-30] MEDS ORDERED: HYDR-3516 PO (11:25)
--- NOTE | 2017-11-30 11:25 | HHI.DCPOC ---
Discharge Care Plan Diagnosis: (1) Low back pain (2) Intractable back pain (3) Pathologic compression fracture of lumbar vertebra (4) HTN (hypertension) (5) Afib Goals to Promote Your Health * To prevent worsening of your condition and complications * To maintain your health at the optimal level Directions to Meet Your Goals Take your medications as prescribed Follow your dietary instruction Follow activity as directed Keep your appointments as scheduled Take your immunizations and boosters as scheduled If your symptoms worsen call your PCP, if no PCP go to Urgent Care Center or Emergency Room Smoking is Dangerous to Your Health. Avoid second hand smoke Call the 24-hour hour crisis hotline for domestic abuse at Coleman Gonzalez MD Nov 30, 2017 11:25
[2017-11-30] MEDS ORDERED: ONDA4TAB7 SL (11:46)
--- NOTE | 2017-11-30 11:49 | HHI.DS ---
Discharge Summary Admission Date Nov 24, 2017 at 19:52 Discharge Date: Nov 30, 2017 Admitting Diagnosis PATHOLOGIC FX OF L3 (1) Afib ICD Code: I48.91 - Unspecified atrial fibrillation (2) Pathologic compression fracture of lumbar vertebra ICD Code: M48.56XA - Collapsed vertebra, not elsewhere classified, lumbar region, initial encounter for fracture Status: Acute (3) Intractable back pain ICD Code: M54.9 - Dorsalgia, unspecified Status: Acute (4) HTN (hypertension) ICD Code: I10 - Essential (primary) hypertension Procedures 11/27/17 fluoroscopic guided L3 biopsy Brief History - From Admission This patient is a 82-year-old gentleman with a history of chronic back pain with multiple lumbar compression fractures and disc surgery evaluated since February 2017. Patient has had increased pain over the last 2 months and worse over the last 2 days. He has been in physical therapy over the last several months and noted a change in therapy treatment with increased pain. Pain is in the lumbar spine worse on the left than the right and radiating to bilateral legs worse again on the left and the right. It is improved with IV morphine. Patient normally takes Tylenol at home and noted that he found in oxycodone from her previous prescription and seemed to provide relief. He has no fever, incontinence, abdominal pain, saddle anesthesia or paresthesias or weakness. Pain is worse with movement and again relieved with morphine and rest. Patient came to the hospital for further evaluation and treatment of the same Imaging Last Impressions Lumbar Spine X-Ray 11/29/17 0000 Signed Impressions: CONCLUSION: Severe compression deformity at L1. Moderate compression deformity at L3. The lack of definition the anterior paramjit x of L3 could be secondary to the fracture versus an underlying lesion. Grade 2 anterior spondylolisthesis of L5 on S1. Needle Biopsy X-Ray 11/27/17 0000 Signed Impressions: CONCLUSION: 1. Uncomplicated fluoroscopic-guided L3 biopsy, as above. Lumbar Spine MRI 11/25/17 0000 Signed Impressions: CONCLUSION: Multifocal signal abnormalities characteristic of a neoplastic process involvin g the marrow. Areas of involvement include the L1 vertebral body with associate d compression deformity), posterior inferior L2, and L3. The L3 involvement ext ends into the pedicles bilaterally and there is evidence of extraosseous soft t issue extension about the left and posterior L3 vertebral body with soft tissue extension replacing the left neural foramen. Chest CT 11/25/17 0000 Signed Impressions: CONCLUSION: 1. Numerous subcentimeter lung nodules characteristic of metastatic disease. T here is also a slightly irregular 2 cm nodule anterior segment right upper lobe that could represent primary lung malignancy or metastatic disease. 2. No adenopathy or significant effusion. Probable pathologic severe compressi on deformity at L1. Lumbar Spine CT 11/24/17 626 Signed Impressions: CONCLUSION: 1. Osteopenia with lytic bone destruction at L3 and probable pathologic severe compression fracture of L1. Primary differential diagnosis is myeloma or metas tatic disease. 2. Multilevel canal stenosis as above. 3. Grade 1 anterolisthesis of L5 on S1 with severe bilateral foraminal stenosi s. Abdomen/Pelvis CT 11/24/17 [id number] Signed Impressions: CONCLUSION: 1. Lytic bone destruction of L3 with likely pathologic fractures of L3 and L1. Primary differential diagnosis is metastatic disease or myeloma. 2. Stable appearance of bilateral renal cysts, nonobstructing renal calculi an d hepatic cysts February 2017. PE at Discharge General: Elderly male in no acute distress. Heart: Regular rate and rhythm. No murmur. Lungs: Clear to auscultation bilaterally. No wheezes, rales, or rhonchi. Breathing is nonlabored. Abdomen: Soft, nontender, nondistended. Extremities: No lower extremity edema. Psych: Alert and oriented. Neuro: Normal speech. No focal deficits noted. Pt update on day of discharge The patient states that he feels better today and wants to go home. Back pain is well controlled. He had an episode of nausea and vomiting this morning when he was ambulating with physical therapy. Nausea and vomiting have resolved. He and his state that they are comfortable with the back brace. Hospital Course The patient was admitted for further management of compression fracture of the lumbar vertebra. He was transferred from [place] to [facility] for neurosurgical evaluation. Interventional radiology performed a biopsy of the L3 vertebra. His pain improved. He was fitted for a TLSO brace. Oncology evaluated the patient and cleared him for discharge. Initial review of the pathology showed findings concerning for malignancy. Radiation oncology was consulted. Patient was cleared for discharge by oncology and neurosurgery. Was felt to be stable for discharge home with home health physical therapy. Pt Condition on Discharge: Stable Discharge Disposition: Disch w/ Home Health Serv Discharge Time: > 30 minutes Discharge Instructions DIET: Follow Instructions for: As Tolerated, No Restrictions Activities you can perform: See Additionl Instruction Other Activity Instructions: With TLSO brace Follow up Referrals: Neurosurgery - 1 Week with Casey Cat MD Oncology - 1 Week with Buster Butt MD Oncology - 2 Weeks with Micah Fink MD PCP Follow-up - 1 Week with Simon Raygoza MD New Medications: Ondansetron Odt (Ondansetron Odt) 4 Mg Tab 4 MG SL Q8HR PRN for Nausea/Vomiting, #10 TAB 0 Refills Hydrocodone/Acetaminophen (Hydrocodone-Acetamin 5-325 mg) 5 Mg-325 Mg Tablet 1 TAB PO Q4H PRN for PAIN SCALE 4 TO 10 for 3 Days, #18 TAB 0 Refills Continued Medications: Alfuzosin ER 24 HR (Alfuzosin ER 24 HR) 10 Mg Tab 10 MG PO DAILY for BPH, #30 TAB 0 Refills Amlodipine (Amlodipine) 5 Mg Tab 5 MG PO DAILY for Blood Pressure Management, #30 TAB 0 Refills Apixaban (Eliquis) 5 Mg Tab 5 MG PO DAILY for Blood Clot Prevention, #60 TAB 0 Refills Atorvastatin (Lipitor) 40 Mg Tab 40 MG PO HS for Cholesterol Management, #30 TAB 0 Refills Coenzyme Q10 (Ubidecarenone) (Co Q 10) 100 Mg-5 Unit Cap Cyanocobalamin (Vitamin B-12) 500 Mcg Subl 1000 MG PO DAILY for Nutritional Supplement, TAB.SL 0 Refills Dutasteride (Dutasteride) 0.5 Mg Cap 0.5 MG PO DAILY for Manage Prostate Problems, #30 CAP 0 Refills Metoprolol Tartrate (Metoprolol Tartrate) 25 Mg Tab 25 MG PO DAILY, #30 TAB 0 Refills Pantoprazole (Pantoprazole) 40 Mg Tab Polyethylene Glycol 3350 Powder (Miralax Powder) 17 Gm Powd 17 GM PO DAILY for Constipation, #1 CAN 0 Refills Mix and dissolve one measuring cap-ful (17 grams) in water or juice. Vitamins C & E (Cranberry Urinary Comfort) 1 Cap 1 CAP PO DAILY for Urinary Symptom Managemen, CAP 0 Refills Stoverink,Coleman D. MD Nov 30, 2017 11:49
--- NOTE | 2017-11-30 11:50 | HHI.FF ---
Face to Face Verification Diagnosis: (1) Low back pain (2) Intractable back pain (3) Pathologic compression fracture of lumbar vertebra (4) HTN (hypertension) (5) Afib Physical Therapy Order: Evaluate and Treat Home Health Nursing Order: Nursing assessment with vital signs I have seen patient Wayne Catherine on 11/30/17. My clinical findings support the need for the requested home health care services because: High risk of falls I certify that my clinical findings support that this patient is homebound because: Unsteady gait/balance Coleman Gonzalez MD Nov 30, 2017 11:50
[2017-11-30 13:01] VITALS: BP 131/69; PULSE 68; RESP 20; TEMP 97.4; O2SAT 94
--- NOTE | 2017-11-30 14:54 | HHI.NSPN ---
(Kezia Sierra) Note Status Status: Progress Note (Kezia Sierra) Interval History Interval History Mr. Catherine is a 82 year old male who presents to [facility] for intractable low back pain. Mr. Catherine has a history of chronic back pain in which he undergoes physical therapy. However over the past 2 months his pain has been getting worse and much worse over the last several days. He denies any associated trauma or falls. He reports his pain is located in the lower back with pain also radiating down both lower extremity in the mid anterior thighs. He denies fevers, chills, focal weakness, bowel or bladder incontinence. His pain is worsened with movement and improves when he lay still. He has a history of skin melanoma that was excised. Workup shows pathological lumbar fracture. Neurosurgical evaluation is requested. 11/28: pathology still pending, wants to go home if pathology will take few days. 11/29: no changes in symptoms, would like to try nonsurgical management at this time, if no improvement then may decide on surgery 11/30: Became nauseated, lightheaded upon sitting up in bed today. Custom brace at bedside. (Kezia Sierra) Labs, Micro, & Vital Signs Results Date Time Temp Pulse Resp B/P (MAP) Pulse Ox O2 Delivery O2 Flow Rate FiO2 11/30/17 13:01 97.4 68 20 131/69 (89) 94 11/30/17 09:29 99.0 61 20 133/72 (92) 96 11/30/17 08:14 92 21 11/30/17 04:50 98.0 62 20 117/64 (81) 99 11/30/17 00:15 98.0 66 19 120/69 (86) 97 11/29/17 22:20 98.0 68 20 128/80 (96) 98 Constitutional Vital Signs Date Time Temp Pulse Resp B/P (MAP) Pulse Ox O2 Delivery O2 Flow Rate FiO2 11/30/17 13:01 97.4 68 20 131/69 (89) 94 11/30/17 09:29 99.0 61 20 133/72 (92) 96 11/30/17 08:14 92 21 11/30/17 04:50 98.0 62 20 117/64 (81) 99 11/30/17 00:15 98.0 66 19 120/69 (86) 97 11/29/17 22:20 98.0 68 20 128/80 (96) 98 (Kezia Sierra) Physical Exam GENERAL: Resting in bed in no acute distress HEENT: Head is normocephalic. Sclerae and conjunctivae are normal. Oropharynx unremarkable. NECK: There is no cervical, supraclavicular, axillary or inguinal adenopathy. HEART: Regular rate and rhythm. Occasional premature beat. LUNGS: Clear, without rales, wheezes or rhonchi. ABDOMEN: Without hepatosplenomegaly or masses. EXTREMITIES: Trace edema. MUSCULOSKELETAL: There is tenderness of the lower back. NEUROLOGIC: The patient is alert, awake and oriented to time, place and person. Speech is fluent. Cranial nerve examination: pupils to be equal, round and reactive to light. Extra-ocular movements are intact. Facial motor and sensory function are normal and symmetrical. Gross hearing appears intact. Sternocleidomastoid and trapezius muscles are symmetrical. Other cranial nerves are intact. Muscle strength is normal in all muscle groups of both upper and lower extremities. Sensory examination is intact to light touch and pin prick in both the upper and lower extremities. Deep tendon reflexes are symmetrical in both upper and lower extremities. There is a bilateral plantar flexion response. Cerebellar examination is unremarkable, without deficits. SKIN: Unremarkable. (Kezia Sierra) GENERAL: Mr Catherine is resting in no acute distress HEENT: Head is normocephalic. Sclerae and conjunctivae are normal. Oropharynx unremarkable. NECK: There is no cervical, supraclavicular, axillary or inguinal adenopathy. HEART: Regular rate and rhythm. Occasional premature beat. LUNGS: Clear, without rales, wheezes or rhonchi. ABDOMEN: Without hepatosplenomegaly or masses. EXTREMITIES: Trace edema. MUSCULOSKELETAL: There is tenderness of the lower back. NEUROLOGIC: The patient is alert, awake and oriented to time, place and person. Speech is fluent. Cranial nerve examination: pupils to be equal, round and reactive to light. Extra-ocular movements are intact. Facial motor and sensory function are normal and symmetrical. Gross hearing appears intact. Sternocleidomastoid and trapezius muscles are symmetrical. Other cranial nerves are intact. Muscle strength is normal in all muscle groups of both upper and lower extremities. Sensory examination is intact to light touch and pin prick in both the upper and lower extremities. Deep tendon reflexes are symmetrical in both upper and lower extremities. There is a bilateral plantar flexion response. Cerebellar examination is unremarkable, without deficits. SKIN: Warm and dry. (Casey Cat MD) Medications Current Medications Current Medications Medications (Trade) Dose Ordered Sig/Se Route PRN Reason Start Time Stop Time Status Last Admin Dose Admin Sodium Chloride (NS Flush) 2 ml UNSCH PRN IV FLUSH FLUSH AFTER USING IV ACCESS 11/24/17 20:00 Sodium Chloride (NS Flush) 2 ml BID IV FLUSH 11/24/17 21:00 11/30/17 09:10 Metoclopramide HCl (Reglan Inj) 5 mg Q6H PRN IV PUSH NAUSEA OR VOMITING 11/24/17 20:00 11/30/17 10:46 Acetaminophen (Tylenol) 650 mg Q6H PRN PO FEVER/PAIN SCALE 1 TO 2 11/24/17 20:00 Acetaminophen/ Hydrocodone Bitart ([place] 5-325 Mg) 1 tab Q4H PRN PO PAIN SCALE 3 TO 5 11/24/17 20:00 11/26/17 09:27 Senna/Docusate Sodium (Jelly-Colace) 1 tab BID PO 11/24/17 21:00 11/30/17 09:09 Magnesium Hydroxide (Milk Of Magnesia Liq) 30 ml Q12H PRN PO Mild constipation 11/24/17 20:00 Sennosides (Senokot) 17.2 mg Q12H PRN PO Moderate constipation 11/24/17 20:00 11/28/17 16:59 Bisacodyl (Dulcolax Supp) 10 mg DAILY PRN RECTAL SEVERE CONSITIPATION 11/24/17 20:00 Lactulose (Lactulose Liq) 30 ml DAILY PRN PO SEVERE CONSITIPATION 11/24/17 20:00 11/29/17 13:10 Amlodipine Besylate (Norvasc) 5 mg DAILY PO 11/25/17 09:00 11/30/17 09:09 Atorvastatin Calcium (Lipitor) 40 mg HS PO 11/24/17 21:00 11/29/17 20:35 Cyanocobalamin (Vitamin B12) 1,000 mcg DAILY PO 11/25/17 09:00 11/30/17 09:07 Metoprolol Tartrate (Lopressor) 25 mg DAILY PO 11/25/17 09:00 11/30/17 09:08 Tamsulosin HCl (Flomax) 0.4 mg DAILY PO 11/25/17 09:00 11/30/17 09:08 Finasteride (Proscar) 5 mg DAILY PO 11/25/17 09:00 11/29/17 09:13 Prochlorperazine Edisylate (Compazine Inj) 10 mg Q6H PRN IV PUSH NAUSEA/VOMITING 11/24/17 21:45 11/25/17 18:08 Tramadol HCl (Ultram) 50 mg Q12H PO 11/25/17 10:00 11/29/17 20:39 Polyethylene Glycol (Miralax) 17 gm DAILY PO 11/26/17 09:00 11/30/17 09:06 Acetaminophen/ Hydrocodone Bitart ([place] 10-325 Mg) 1 tab Q4H PRN PO PAIN SCALE 6 TO 10 11/25/17 20:30 11/30/17 09:08 Hydromorphone HCl (Dilaudid Pf Inj) 0.2 mg Q4H PRN IV PUSH BREAKTHROUGH PAIN 11/27/17 10:15 11/28/17 08:39 Nystatin (Mycostatin Powder) 1 applic Q12HR TOPICAL 11/27/17 21:00 11/29/17 09:17 (Kezia Sierra) Current Medications The exam, history, and the medical decision-making described in the above note were completed with the assistance of the mid-level provider. I reviewed and agree with the findings presented. I attest that I had a [id number] encounter with the patient on the same day, and personally performed and documented my assessment and findings in the medical record. (Casey Cat MD) Medical Decision Making MDM Remarks 82 y/o male with lumbar pathological fracture s/p CT guided biopsy, preliminary now most likely lung metastasis (Kezia Sierra) Plan Plan Remarks Upright x-rays reviewed with Dr. Cat cont nonsurgical management of fracture at this time, cont supportive care oncology following Dr. Cat again dw and patient, questions answered Clear to discharge from neurosurgical standpoint (Kezia Sierra) Attending Statement I reviewed his upright xrays. I again discussed his condition with Dr Fink. 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 he wants non operative treatment The CT of his chest shows multiple nodules suspicious for lung cancer, which could potentially be his primary neoplasm, which had metastasized to the spine, which is supported by the pathology. His prognosis is guarded. Hypertension: Continue current medications. Blood pressure likely elevated secondary to pain. Atrial fibrillation: Rate controlled. Continue metoprolol. Eliquis on hold. A thoracolumbar orthosis has been ordered for support Pain controlled with narcotic analgesics Continue aggressive pulmonary toilette, nasotracheal suction, and breathing treatments with nebulizers. Daily PT and OT Renal. Continue to monitor closely urine output, BUN and creatinine Endocrine. Continue to Monitor serial Acu checks and SSI as needed in detail ID continue to monitor for signs of infection Continue Protonix for stress ulcer prophylaxis Continue Dedrick hose and SCD's for DVT prophylaxis Further recommendations will be provided depending on the patient's clinical evaluation and follow up studies. The exam, history, and the medical decision-making described in the above note were completed with the assistance of the mid-level provider. I reviewed and agree with the findings presented. I attest that I had a [id number] encounter with the patient on the same day, and personally performed and documented my assessment and findings in the medical record. (Casey Cat MD) Kezia Sierra Nov 30, 2017 14:54 Casey Cat MD Dec 02, 2017 16:05
[2017-11-30 16:46] VITALS: BP 143/69; PULSE 64; RESP 20; TEMP 97.5; O2SAT 95
== END 2017-11-30 17:30 | disposition home health service (06) | DRG 478 ==
LOC: PHEFT 16:16 → PHEDA 19:52 → PH3A 21:04 → N05B 11-26 16:29
PROVIDERS: ADMIT Family Medicine; ATTEND Family Medicine
PROC: 2W35X3Z Immobilization of Back using Brace (ICD-10-PCS; 2017-11-25)
PROC: 0QB03ZX Excision of Lumbar Vertebra, Percutaneous Approach, Diagnostic (ICD-10-PCS; principal; 2017-11-27)
PROC: 0Q903ZX Drainage of Lumbar Vertebra, Percutaneous Approach, Diagnostic (ICD-10-PCS; 2017-11-27)
DX: M48.56XA Collapsed vertebra, not elsewhere classified, lumbar region, initial encounter for fracture (principal); C79.51 Secondary malignant neoplasm of bone; I48.91 Unspecified atrial fibrillation; I10 Essential (primary) hypertension; G47.30 Sleep apnea, unspecified; G89.29 Other chronic pain; E78.00 Pure hypercholesterolemia, unspecified; N40.0 Benign prostatic hyperplasia without lower urinary tract symptoms; K21.9 Gastro-esophageal reflux disease without esophagitis; L29.9 Pruritus, unspecified; M43.17 Spondylolisthesis, lumbosacral region; N20.0 Calculus of kidney; M48.061 Spinal stenosis, lumbar region without neurogenic claudication; M85.88 Other specified disorders of bone density and structure, other site; Z77.090 Contact with and (suspected) exposure to asbestos; Z79.01 Long term (current) use of anticoagulants; Z87.891 Personal history of nicotine dependence; Z90.49 Acquired absence of other specified parts of digestive tract; Z85.820 Personal history of malignant melanoma of skin; Z96.651 Presence of right artificial knee joint; Z88.2 Allergy status to sulfonamides; Z88.1 Allergy status to other antibiotic agents; Z91.048 Other nonmedicinal substance allergy status
CPT/HCPCS: 20225; 71250; 72020; 72132; 72158; 74177; 77002; 80048; 80053; 82378; 82607; 82784; 83883; 84153; 84165; 84443; 85025; 85610; 85652; 85730; 86140; 86301; 86334; 88112; 88173; 88305; 88307; 88341; 88342; 88360; 96372; 96374; 96376; 99152; 99153; A9579; J0780; J1170; J2250; J2270; J2765; J3010; J7030; L0200; L0484; Q9967

== ENCOUNTER 2018-01-01 09:09 | Observation (INO) ==
[2018-01-01] MEDS ORDERED: Sod Chloride 0.9% Inj 1,000 ML IV.SIG ONE ×2 (11:02→13:22)
[2018-01-01] MEDS ORDERED: Morphine Sulfate Inj 2 MG/ML Vial IV.PUSH ONE (11:02)
--- NOTE | 2018-01-01 11:12 | ED ---
HPI General Chief complaint: Nausea/Vomiting/Diarrhea Stated complaint: vomiting Time Seen by Provider: 01/01/18 10:53 Source: patient Mode of arrival: ambulatory Limitations: no limitations History of Present Illness HPI Narrative: The patient is a 82-year-old male who presents to the emergency department for nausea, vomiting, diarrhea, and abdominal distention. The patient has a history stage IV lung carcinoma and is followed by his oncologist, Dr. Fink, and his radiation oncologist, Dr. Butt. 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 The patient states over the last several weeks he has had increasing abdominal distention and pain. He now complains of nausea and vomiting for the last 2 days. He also complains of a one-week history of intermittent constipation with loose to watery stools, occasionally formed. The patient initially thought he possibly had radiation enteritis. Patient has been taking Compazine and Zofran at home for his nausea , however, has intractable nausea and vomiting with decreased oral intake. The patient also notes his urine is dark colored. Symptoms are moderate. Possibly exacerbated by radiation therapy, and there are no current alleviating factors. MD complaint: nausea, vomiting, diarrhea and abdominal pain Onset (ago): day(s) Description of Vomiting: watery Description of Diarrhea: other Associated Abdominal Pain: Yes Location of pain: diffuse Radiation: diffuse Severity: moderate Severity scale (1-10): 4 Quality: cramping, dull and constant Pain Consistency: constant Relieving factors: none Exacerbating factors: none Associated symptoms: malaise and nausea/vomiting Related Data Home Medications Medication Instructions Recorded Confirmed alfuzosin [Uroxatral] 10 mg PO DAILY 01/01/18 01/01/18 alprazolam [Xanax] 0.25 mg PO Q6HR PRN 01/01/18 01/01/18 apixaban [Eliquis] 5 mg PO DAILY 01/01/18 01/01/18 atorvastatin [Lipitor] 40 mg PO DAILY 01/01/18 01/01/18 coQ10 (ubiquinol) 100 mg PO DAILY 01/01/18 01/01/18 cyanocobalamin (vitamin B-12) 1,000 mcg PO DAILY 01/01/18 01/01/18 [Vitamin B-12] dutasteride [Avodart] 0.5 mg PO DAILY 01/01/18 01/01/18 metoprolol tartrate 25 mg PO DAILY 01/01/18 01/01/18 ondansetron [Zofran ODT] 4 mg PO Q6-8H PRN 01/01/18 01/01/18 oxycodone [OxyContin] 20 mg PO Q12H 01/01/18 01/01/18 oxycodone-acetaminophen [Percocet] 1 tab PO Q4H PRN 01/01/18 01/01/18 prochlorperazine maleate 10 mg PO Q6-8H PRN 01/01/18 01/01/18 [Compazine] Allergies Allergy/AdvReac Type Severity Reaction Status Date / Time adhesive tape Allergy Severe Rash Verified 01/01/18 09:16 bacitracin Allergy Severe Rash Verified 01/01/18 09:16 polymyxin B Allergy Severe Rash Verified 01/01/18 09:16 Sulfa (Sulfonamide Allergy Severe Hives Verified 01/01/18 09:16 Antibiotics) diazepam AdvReac Severe "Cardiac Verified 01/01/18 09:16 arrest" Review of Systems Except as stated in HPI: all other systems reviewed are negative Constitutional Reports fever(s) Cardiovascular Denies chest pain Respiratory Denies dyspnea Gastrointestinal Reports abdominal pain, Reports cramping, Reports diarrhea, Reports nausea and Reports vomiting Musculoskeletal Reports back pain PMFSH Medical History Medical History Atrial fibrillation (Acute) Chronic sinusitis (Acute) Enlarged prostate (Acute) Hypertension (Acute) Lung cancer (Acute) Melanoma (Acute) Meniere disease (Acute) Polycystic kidney disease (Acute) Sleep apnea (Acute) Tear of left rotator cuff (Acute) Surgical History Surgical History H/O carpal tunnel repair (Acute) H/O hernia repair (Acute) History of cholecystectomy (Acute) History of knee replacement (Acute) Hx of appendectomy (Acute) Hx of arthroscopic knee surgery (Acute) Hx of cataract surgery (Acute) Hx of tonsillectomy (Acute) Social History Social History Substance History: No History of Abuse Smoking Status: Former smoker How Often Do You Have a Drink Containing Alcohol: Monthly or less Recent Travel in [facility] within the Last 8 Weeks: No Recent Out of Country Travel within the Last 8 Weeks: No Immunization History Tetanus Immunization: Unsure Exam Narrative Exam Narrative: GENERAL: Awake, alert, pleasant 82-year-old male who appears his stated age and is in no acute respiratory distress. SKIN: Focused skin assessment warm/dry. HEAD: Atraumatic. Normocephalic. EYES: No injection or drainage. ENT: No nasal bleeding or discharge. Slightly dry mucous membranes. NECK: Trachea midline. No JVD. CARDIOVASCULAR: Regular, tachycardic with a heart rate of 110. RESPIRATORY: No accessory muscle use. Clear to auscultation. Breath sounds equal bilaterally. GASTROINTESTINAL: Abdomen distended, diffusely tender. No guarding or rigidity. MUSCULOSKELETAL: No obvious deformities. No clubbing. No cyanosis. No edema. NEUROLOGICAL: Awake and alert. No obvious cranial nerve deficits. Motor grossly within normal limits. Normal speech. PSYCHIATRIC: Appropriate mood and affect; insight and judgment normal. Course Initial Documented Vital Signs Temperature 98.5 F 01/01/18 09:14 Pulse Rate 118 H 01/01/18 09:14 Respiratory Rate 18 01/01/18 09:14 Blood Pressure 106/66 01/01/18 09:14 Pulse Oximetry 96 01/01/18 09:14 Last Documented Vital Signs Temperature 98.5 F 01/01/18 09:14 Pulse Rate 138 H 01/01/18 11:21 Respiratory Rate 18 01/01/18 11:21 Blood Pressure 134/78 01/01/18 11:21 Pulse Oximetry 95 01/01/18 11:22 Medical Decision Making MDM Narrative Medical decision making narrative: IV was established, labs are drawn and sent, and the patient was placed on cardiac telemetry monitoring and continuous pulse oximetry monitoring. The patient was administered Reglan, morphine, and IV fluids. Noncontrast CT of the abdomen and pelvis was obtained. CT of the abdomen and pelvis reveals lytic lesions but no evidence of obstruction. BUN is elevated at 30 consistent with prerenal azotemia and dehydration. White count is unremarkable. The patient was reassessed, still has mild nausea, was administer Compazine 10 mg intravenously. The patient has failed outpatient therapy with oral Compazine and Zofran, will be admitted for IV hydration and antiemetics. Once patient is able to tolerate oral intake he may be able to be discharged. Lab Data Result diagrams: 01/01/18 11:15 01/01/18 11:15 Lab Results 01/01/18 01/01/18 01/01/18 Range/Units 11:15 11:15 13:25 WBC 4.8 (4.0-11.0) th/mm3 RBC 5.14 (4.50-5.90) mil/mm3 Hgb 14.6 (13.0-17.0) gm/dL Hct 44.0 (39.0-51.0) % MCV 85.6 (80.0-100.0) fL MCH 28.3 (27.0-34.0) pg MCHC 33.1 (32.0-36.0) % RDW 14.6 (11.6-17.2) % Plt Count 183 (150-450) th/mm3 MPV 9.8 (7.0-11.0) fL Neut % (Auto) 62.2 (16.0-70.0) % Lymph % (Auto) 11.8 (9.0-44.0) % Lane % (Auto) 21.7 H (0.0-8.0) % Eos % (Auto) 3.9 (0.0-4.0) % Baso % (Auto) 0.4 (0.0-2.0) % Neut # (Auto) 3.0 (1.8-7.7) th/mm3 Lymph # (Auto) 0.6 L (1.0-4.8) th/mm3 Lane # (Auto) 1.0 H (0.0-0.9) th/mm3 Eos # (Auto) 0.2 (0.0-0.4) th/mm3 Baso # (Auto) 0.0 (0.0-0.2) th/mm3 WBC Differential . Differential Comment Auto diff final Sodium 139 (136-145) meq/L Potassium 4.4 (3.5-5.1) meq/L Chloride 106 (98-107) meq/L Carbon Dioxide 22.1 (21.0-32.0) meq/L Anion Gap 11 (5-15) meq/L BUN 30 H (7-18) mg/dL Creatinine 1.27 (0.60-1.30) mg/dL Estimated GFR 54 L (>89) mL/min Random Glucose 118 H (74-106) mg/dL Calcium 8.9 (8.5-10.1) mg/dL Total Bilirubin 0.8 (0.2-1.0) mg/dL AST 20 (15-37) U/L ALT 10 L (12-78) U/L Alkaline Phosphatase 91 (45-117) U/L Total Protein 6.9 (6.4-8.2) g/dL Albumin 2.6 L (3.4-5.0) g/dL Lipase 45 L (73-393) U/L Urine Color Veda (Yellw/Straw) Urine Clarity Clear (Clear) Urine pH 5.0 (5.0-8.5) Ur Specific [place] 1.023 (1.002-1.035) Urine Protein 30 H (Neg-Trace) mg/dL Urine Glucose (UA) Negative (Negative) mg/dL Urine Ketones Negative (Negative) mg/dL Urine Occult Blood Negative (Negative) Urine Nitrate Negative (Negative) Urine Bilirubin Negative (Negative) Urine Urobilinogen 4 or greater (Less than 2) mg/dL Ur Leukocyte Esterase Negative (Negative) Urine RBC 1 (0-3) /hpf Urine WBC 3 (0-5) /hpf Ur Squamous Epith Cells 1 (0-5) /hpf Urine Mucus Few H (Occasional) /lpf Micro UA Comment Culture not ind Urine Culture Comments Culture not ind Imaging Data Radiologist's impression: Abdomen/Pelvis CT 01/01/18 11:02 CONCLUSION: 1. Stable CT scan of the abdomen and pelvis compared to the prior study. 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
[2018-01-01 11:54] LABS: Baso % (Auto) 0.4 % (0.0-2.0); Eos # (Auto) 0.2 th/mm3 (0.0-0.4); Eos % (Auto) 3.9 % (0.0-4.0); Hemoglobin 14.6 gm/dL (13.0-17.0); Lymph # (Auto) 0.6 th/mm3 (1.0-4.8); Lymph % (Auto) 11.8 % (9.0-44.0); Mean Corpuscular HGB Conc 33.1 % (32.0-36.0); Mean Corpuscular Hemoglobin 28.3 pg (27.0-34.0); Mean Corpuscular Volume 85.6 fL (80.0-100.0); Mean Platelet Volume 9.8 fL (7.0-11.0); Mono % (Auto) 21.7 % (0.0-8.0); Neut % (Auto) 62.2 % (16.0-70.0); Platelet Count 183 th/mm3 (150-450); Red Blood Count 5.14 mil/mm3 (4.50-5.90); Red Cell Distribution Width 14.6 % (11.6-17.2); White Blood Count 4.8 th/mm3 (4.0-11.0)
[2018-01-01 12:08] LABS: Anion Gap 11 meq/L (5-15); Blood Urea Nitrogen 30 mg/dL (7-18); Calcium 8.9 mg/dL (8.5-10.1); Carbon Dioxide 22.1 meq/L (21.0-32.0); Chloride 106 meq/L (98-107); Glomerular Filtration Rate 54 mL/min (>89); Glucose,Random 118 mg/dL (74-106); Potassium 4.4 meq/L (3.5-5.1); Sodium 139 meq/L (136-145)
[2018-01-01 12:09] LABS: Alanine Aminotransferase 10 U/L (12-78); Albumin 2.6 g/dL (3.4-5.0); Alkaline Phosphatase 91 U/L (45-117); Aspartate Aminotransferase 20 U/L (15-37); Lipase 45 U/L (73-393); Total Protein 6.9 g/dL (6.4-8.2)
--- NOTE | 2018-01-01 12:40 | CT ---
EXAM DATE: 01/01/2018 12:25 PM EDT AGE/SEX: 82 years / Male INDICATIONS: Abdominal pain and distention for several weeks. CLINICAL DATA: This is the patient's initial encounter. Patient reports that signs and symptoms have been present for 1 day and indicates a pain score of 4/10. MEDICAL/SURGICAL HISTORY: Carcinoma, lung. Metastatic disease. Hypertension. Melanoma None. RADIATION DOSE: 16.02 CTDI (mGy) COMPARISON: [facility], CT ABDOMEN & PELVIS W CONTRAST, 11/24/2017. . TECHNIQUE: Multiple contiguous axial images were obtained through the abdomen. Images were obtained using multiple row detector helical technique. Using automated exposure control and adjustment of the mA and/or kV according to patient size, radiation dose was kept as low as reasonably achievable to o btain optimal diagnostic quality images. DICOM format image data is available electronically for rev iew and comparison. Lack of IV contrast limits the diagnosis for certain organ pathology. FINDINGS: Lower Lungs: Persistent 2 cm mass in the right middle lobe. This is not significantly changed compare d to the prior exam. There continue to be several subcentimeter pulmonary nodules bilaterally. Neopla stic disease is the primary consideration. Liver: Stable appearance of the liver with several hepatic cysts again demonstrated. No dilated bilia ry ducts. Spleen: Homogeneous density without enlargement. Pancreas: Unremarkable without mass or calcification. Kidneys: No significant change in the appearance of the kidneys. There continue to be multiple numer ous cysts throughout both kidneys. Also noted are several bilateral nonobstructive renal calculi. The largest stone measures approximately 1 cm in the midpole the left kidney. Adrenal Glands: Unremarkable. Aorta: Stable atherosclerotic changes. Bowel/Mesentery: The bowel loops are grossly unremarkable. The cecum and sigmoid colon have a normal configuration. There is stool throughout the colon. No inflammatory changes. No evidence of obstruct ion. Abdominal Wall: Intact. Retroperitoneum: No evidence of adenopathy in the retrocrural, para-aortic, or deep pelvic regions. Bladder: Contours are smooth. Reproductive Organs: No abnormal masses or calcifications seen. Inguinal: The inguinal region is unremarkable without evidence of adenopathy. Bony Structures: Lytic bony destruction of L3 which has been previously described. There is compress ion fractures at L1 and L3. No significant change compared to the prior study. Stable diffuse degener ative changes. No new or significant changes compared to the prior examination. CONCLUSION: 1. Stable CT scan of the abdomen and pelvis compared to the prior study. Electronically signed by: Ashvin Gann MD 01/01/2018 12:39 PM EDT
[2018-01-01 14:09] LABS: Bilirubin,Urine Negative (Negative); Clarity,Urine Clear (Clear); Color,Urine Amber (Yellw/Straw); Glucose,Urine (UA) Negative (Negative); Leukocyte Esterase,Urine Negative (Negative); Mucus,Urine Few /lpf (Occasional); Nitrite,Urine Negative (Negative); Specific Gravity,Urine 1.023 (1.002-1.035); Squamous Epithelial Cell,Urine 1 /hpf (0-5); Urobilinogen,Urine 4 or Greater mg/dL (Less than 2)
--- NOTE | 2018-01-01 16:05 | P.HPFP ---
History of Present Illness Primary Care Physician: Simon Raygoza <Ashvin Dodd 01/01/18 19:46> Simon Raygoza <Keira Perez 01/01/18 16:05> Chief Complaint: Nausea and vomiting <Keira Perez 01/01/18 16:05> History of Present Illness: 82-year-old male with a recent diagnosis of lung cancer with bony metastasis presents to the emergency department with intractable nausea and vomiting status post radiation treatment completed 4 days ago. He was recently diagnosed with stage IV lung cancer and has undergone 10 doses of radiation treatment, most recently 4 days ago. Over the last 4 days, he has had progressive nausea and vomiting to the point that he "is unable to keep anything down". He is having multiple episodes of vomiting daily and is now dry heaving. He has tried oral Zofran and Compazine at home with no relief. He does have some mild abdominal pain. He denies fevers or chills, denies hematochezia or melena, he denies hematemesis, he denies chest pain or palpitations. <Ashvin Dodd 01/01/18 19:46> Mr. Catherine is a 82yom with stage 4 lung cancer with metastases to the bone here for intractable nausea and vomiting post radiation treatment. Mr. Catherine reports that he had his last radiation treatment on Sunday and since has been unable to keep anything down. He has multiple episodes of vomiting in a day mostly bilious. He has tried p.o. Zofran and Compazine with no relief. He has no appetite. He reports chills but no fevers. He endorses diffuse abdominal pain. He feels dehydrated and reports difficulty with urination stating that his urine is "like molasses". He denies diarrhea, constipation, hematuria, hematochezia, or melena. his diagnosis of lung cancer was 1 month ago. He follows up with Dr. Fink for oncology and Dr. Butt for radiation. <Keira Perez 01/01/18 16:36> - Diagnosis (1) Intractable nausea and vomiting (2) KENIA (acute kidney injury) (3) Stage 4 lung cancer (4) Back pain (5) Atrial fibrillation (6) Hypertension (7) Dyslipidemia (8) Nutrition, metabolism, and development symptoms <Ashvin Dodd - 01/01/18 19:46> (1) Intractable nausea and vomiting (2) KENIA (acute kidney injury) (3) Stage 4 lung cancer (4) Back pain (5) Atrial fibrillation (6) Hypertension (7) Dyslipidemia (8) Nutrition, metabolism, and development symptoms <Keira Perez 01/01/18 16:12> Review of Systems Constitutional: Reports chills, Denies fever(s), Denies headache(s), Denies increased appetite, Denies weight gain, Denies weight loss <Keira Perez 16:36> Eyes: Denies blind spots, Denies blurry vision, Denies change in vision < Keira Perez 01/01/18 16:36> Ears, Nose, Mouth, and Throat: Reports difficulty swallowing, Reports dry mouth , Reports sore throat (Believes related to vomiting), Denies nasal discharge, Denies pain with swallowing <Keira Perez 01/01/18 16:36> Cardiovascular: Denies chest pain, Denies fast heart rate, Denies leg swelling, Denies lightheadedness <Keira Perez 01/01/18 16:36> Respiratory: Denies cough, Denies coughing up blood, Denies shortness of breath <Keira Perez 01/01/18 16:36> Gastrointestinal: Reports abdominal pain, Reports bloating, Reports cramping, Reports difficulty swallowing, Reports nausea, Reports vomiting, Denies constipation, Denies heartburn, Denies vomiting blood <Keira Perez 16:36> Genitourinary: Reports decreased urination, Reports difficulty urinating, Denies blood in urine, Denies painful urination, Denies urinary frequency < Keira Perez 01/01/18 16:36> Musculoskeletal: Reports back pain, Denies body aches, Denies numbness, Denies tingling <Keira Perez 01/01/18 16:36> Neurologic: Reports unsteadiness, Reports weakness, Denies dizziness, Denies fainting, Denies numbness, Denies tingling <Keira Perez 01/01/18 16:36> PMFSH - History History Provided By: Patient <Te Perezsena Fernandes 01/01/18 16:05> - Medical History Medical History: Medical History (Last Updated 01/01/18 @ 10:57 by Chuyita Ochoa) Atrial fibrillation Chronic sinusitis Enlarged prostate Hypertension Lung cancer Melanoma Meniere disease Polycystic kidney disease Sleep apnea Tear of left rotator cuff <JuAshvin - 01/01/18 19:46> Medical History (Last Updated 01/01/18 @ 10:57 by Chuyita Ochoa) Atrial fibrillation Chronic sinusitis Enlarged prostate Hypertension Lung cancer Melanoma Meniere disease Polycystic kidney disease Sleep apnea Tear of left rotator cuff <AnaKeira kong 01/01/18 16:05> - Surgical History Surgical History: Surgical History (Last Updated 01/01/18 @ 10:57 by Chuyita Ochoa) H/O carpal tunnel repair H/O hernia repair History of cholecystectomy History of knee replacement Hx of appendectomy Hx of arthroscopic knee surgery Hx of cataract surgery Hx of tonsillectomy <JuAshvin miranda 01/01/18 19:46> Surgical History (Last Updated 01/01/18 @ 10:57 by Chuyita Ochoa) H/O carpal tunnel repair H/O hernia repair History of cholecystectomy History of knee replacement Hx of appendectomy Hx of arthroscopic knee surgery Hx of cataract surgery Hx of tonsillectomy <Keira Perez 01/01/18 16:05> - Tobacco History Smoking Status: Former smoker <AnaKeira kong 01/01/18 16:05> - Alcohol History How Often Do You Have a Drink Containing Alcohol: Monthly or less <Keira Perez 01/01/18 16:05> - Substance Use History Substance History: No History of Abuse <Keira Perez 01/01/18 16:05> - Travel History Recent Travel in the [place] Within the Last 8 Weeks: No <Keira Perez 16:05> Recent Travel Out of the Country Within the Last 8 Weeks: No <Keira Perez 01/01/18 16:05> - Immunization History Tetanus Immunization: Unsure <Keira Perez 01/01/18 16:05> Medications and Allergies Allergies Allergy/AdvReac Type Severity Reaction Status Date / Time adhesive tape Allergy Severe Rash Verified 01/01/18 09:16 bacitracin Allergy Severe Rash Verified 01/01/18 09:16 polymyxin B Allergy Severe Rash Verified 01/01/18 09:16 Sulfa (Sulfonamide Allergy Severe Hives Verified 01/01/18 09:16 Antibiotics) diazepam AdvReac Severe "Cardiac Verified 01/01/18 09:16 arrest" <Ashvin Dodd - 01/01/18 19:46> Home Medications Medication Instructions Recorded Confirmed Type alfuzosin [Uroxatral] 10 mg PO DAILY 01/01/18 01/01/18 History alprazolam [Xanax] 0.25 mg PO Q6HR PRN 01/01/18 01/01/18 History apixaban [Eliquis] 5 mg PO DAILY 01/01/18 01/01/18 History atorvastatin [Lipitor] 40 mg PO DAILY 01/01/18 01/01/18 History coQ10 (ubiquinol) 100 mg PO DAILY 01/01/18 01/01/18 History cyanocobalamin (vitamin B-12) 1,000 mcg PO DAILY 01/01/18 01/01/18 History [Vitamin B-12] dutasteride [Avodart] 0.5 mg PO DAILY 01/01/18 01/01/18 History metoprolol tartrate 25 mg PO DAILY 01/01/18 01/01/18 History ondansetron [Zofran ODT] 4 mg PO Q6-8H PRN 01/01/18 01/01/18 History oxycodone [OxyContin] 20 mg PO Q12H 01/01/18 01/01/18 History oxycodone-acetaminophen [Percocet] 1 tab PO Q4H PRN 01/01/18 01/01/18 History prochlorperazine maleate 10 mg PO Q6-8H PRN 01/01/18 01/01/18 History [Compazine] <Ashvin Dodd - 01/01/18 19:46> Active Medications: Active Medications Al Hydroxide/Mg Hydroxide (Milk Of Magngeovanny Liq) 30 ml PO Q12H PRN PRN Reason: Mild Constipation Alprazolam (Xanax) 0.25 mg PO Q6HR PRN PRN Reason: Anxiety Apixaban (Eliquis) 5 mg PO DAILY LOGAN Atorvastatin Calcium (Lipitor) 40 mg PO DAILY LOGAN Sodium Chloride (Ns Inj) 1,000 mls @ 135 mls/hr IV.CONT .Q7H25M [facility] Last Admin: 01/01/18 18:47 Dose: 135 mls/hr Metoclopramide HCl (Reglan Inj) 5 mg IV.PUSH Q6HR PRN; Protocol PRN Reason: NAUSEA OR VOMITING Last Admin: 01/01/18 14:25 Dose: 5 mg Metoprolol Tartrate (Lopressor) 25 mg PO DAILY [facility] Last Admin: 01/01/18 19:32 Dose: Not Given Ondansetron HCl (Zofran Odt) 4 mg PO Q6H PRN PRN Reason: NAUSEA OR VOMITING Oxycodone HCl (Oxycontin Cr) 20 mg PO Q12H [facility] Last Admin: 01/01/18 18:46 Dose: 20 mg Oxycodone/Acetaminophen (Percocet 10/325 Mg) 1 tab PO Q4H PRN PRN Reason: PAIN 6 TO 10 Senna/Docusate Sodium (Jelly-Colace) 1 tab PO BID [facility] Sennosides (Senokot) 17.2 mg PO Q12H PRN PRN Reason: Moderate Constipation Sodium Chloride (Ns Flush) 2 ml IV.FLUSH PRN PRN PRN Reason: FLUSH AFTER USING IV ACCESS Tamsulosin HCl (Flomax) 0.4 mg PO DAILY [facility] <JuAshvin - 01/01/18 19:46> Active Medications Al Hydroxide/Mg Hydroxide (Milk Of Magngeovanny Liq) 30 ml PO Q12H PRN PRN Reason: Mild Constipation Apixaban (Eliquis) 5 mg PO DAILY [facility] Atorvastatin Calcium (Lipitor) 40 mg PO DAILY [facility] Sodium Chloride (Ns Inj) 1,000 mls @ 135 mls/hr IV.CONT .Q7H25M [facility] Metoclopramide HCl (Reglan Inj) 5 mg IV.PUSH Q6HR PRN; Protocol PRN Reason: NAUSEA OR VOMITING Last Admin: 01/01/18 14:25 Dose: 5 mg Metoprolol Tartrate (Lopressor) 25 mg PO DAILY [facility] Ondansetron HCl (Zofran Odt) 4 mg PO Q6H PRN PRN Reason: NAUSEA OR VOMITING Oxycodone HCl (Oxycontin Cr) 20 mg PO Q12H [facility] Oxycodone/Acetaminophen (Percocet 10/325 Mg) 1 tab PO Q4H PRN PRN Reason: PAIN 1-10 Senna/Docusate Sodium (Jelly-Colace) 1 tab PO BID [facility] Sennosides (Senokot) 17.2 mg PO Q12H PRN PRN Reason: Moderate Constipation Sodium Chloride (Ns Flush) 2 ml IV.FLUSH PRN PRN PRN Reason: FLUSH AFTER USING IV ACCESS Tamsulosin HCl (Flomax) 0.4 mg PO DAILY [facility] <Keira Perez - 01/01/18 16:05> Exam Vital signs: Vital Signs 01/01/18 09:14 01/01/18 11:21 01/01/18 11:22 Temperature 98.5 F Pulse Rate 118 H 138 H Respiratory Rate 18 18 Blood Pressure 106/66 134/78 Pulse Oximetry 96 96 95 01/01/18 16:00 Temperature 97.6 F Pulse Rate 76 Respiratory Rate 18 Blood Pressure 121/72 Pulse Oximetry 93 L Intake & Output 01/01/18 01/01/18 01/02/18 06:59 18:59 06:59 Intake Total 240 / 240 Output Total 200 / 200 Balance 40 / 40 Weight 97.976 kg Intake: Oral 240 / 240 Output: Urine 200 / 200 Other: # Bowel Movements 1 <Ashvin Dodd - 01/01/18 19:46> Vital Signs 01/01/18 09:14 01/01/18 11:21 01/01/18 11:22 Temperature 98.5 F Pulse Rate 118 H 138 H Respiratory Rate 18 18 Blood Pressure 106/66 134/78 Pulse Oximetry 96 96 95 Intake & Output 12/31/17 01/01/18 01/01/18 18:59 06:59 18:59 Weight 97.976 kg <Keira Perez - 01/01/18 16:05> Narrative: General: Overweight, well-developed male lying in bed and appears uncomfortable. Several dry heaves while I am in the room. Skin: Warm and dry and intact, erythema across the small of the back/lower thoracic region without warmth or drainage HEENT: Dry mucous membranes without bleeding or cracking CV: Regular rate and rhythm without murmur Pulmonary: Clear to auscultation bilaterally Abdomen: Soft, mildly diffusely tender without rebound, mildly distended. MSK: Extremities without clubbing, cyanosis, or edema <Ashvin Dodd - 01/01/18 19:46> GENERAL: Well-developed male lying in bed under the covers. Uncomfortable, belching. No acute distress. SKIN: Warm and dry. HEAD: Atraumatic. Normocephalic. EYES: No scleral icterus. No injection or drainage. ENT: No nasal bleeding or discharge. Mucous membranes pink and dry. NECK: Trachea midline. No JVD. CARDIOVASCULAR: Regular rate and rhythm. RESPIRATORY: No accessory muscle use. Clear to auscultation. Breath sounds equal bilaterally. GASTROINTESTINAL: Normoactive bowel sounds. Abdomen distended, diffusely tender to light palpation. Tenderness greatest in right lower quadrant. Hepatic and splenic margins not palpable. MUSCULOSKELETAL: Extremities without clubbing, cyanosis, or edema. No obvious deformities. NEUROLOGICAL: Awake and alert. No obvious cranial nerve deficits. Motor grossly within normal limits. Speech normal. PSYCHIATRIC: Appropriate mood and affect; insight and judgment normal. <Keira Perez - 01/01/18 16:36> Results - Labs Result diagrams: 01/01/18 11:15 01/01/18 11:15 <Ashvin Dodd - 01/01/18 19:46> Abnormal lab results 01/01/18 01/01/18 01/01/18 Range/Units 11:15 11:15 13:25 [place] % (Auto) 21.7 H (0.0-8.0) % Lymph # (Auto) 0.6 L (1.0-4.8) th/mm3 [place] # (Auto) 1.0 H (0.0-0.9) th/mm3 BUN 30 H (7-18) mg/dL Estimated GFR 54 L (>89) mL/min Random Glucose 118 H (74-106) mg/dL ALT 10 L (12-78) U/L Albumin 2.6 L (3.4-5.0) g/dL Lipase 45 L (73-393) U/L Urine Protein 30 H (Neg-Trace) mg/dL Urine Mucus Few H (Occasional) /lpf Short CBC 01/01/18 Range/Units 11:15 WBC 4.8 (4.0-11.0) th/mm3 Hgb 14.6 (13.0-17.0) gm/dL Hct 44.0 (39.0-51.0) % Plt Count 183 (150-450) th/mm3 [facility] 01/01/18 11:15 Sodium 139 Potassium 4.4 Chloride 106 Carbon Dioxide 22.1 BUN 30 H Creatinine 1.27 Calcium 8.9 Liver Function 01/01/18 Range/Units 11:15 Total Bilirubin 0.8 (0.2-1.0) mg/dL AST 20 (15-37) U/L ALT 10 L (12-78) U/L Alkaline Phosphatase 91 (45-117) U/L Albumin 2.6 L (3.4-5.0) g/dL Urine 01/01/18 Range/Units 13:25 Urine Color Veda (Yellw/Straw) Urine Clarity Clear (Clear) Urine pH 5.0 (5.0-8.5) Ur Specific [place] 1.023 (1.002-1.035) Urine Protein 30 H (Neg-Trace) mg/dL Urine Glucose (UA) Negative (Negative) mg/dL <Ashvin Dodd - 01/01/18 19:46> Abnormal lab results 01/01/18 01/01/18 01/01/18 Range/Units 11:15 11:15 13:25 [place] % (Auto) 21.7 H (0.0-8.0) % Lymph # (Auto) 0.6 L (1.0-4.8) th/mm3 [place] # (Auto) 1.0 H (0.0-0.9) th/mm3 BUN 30 H (7-18) mg/dL Estimated GFR 54 L (>89) mL/min Random Glucose 118 H (74-106) mg/dL ALT 10 L (12-78) U/L Albumin 2.6 L (3.4-5.0) g/dL Lipase 45 L (73-393) U/L Urine Protein 30 H (Neg-Trace) mg/dL Urine Mucus Few H (Occasional) /lpf Short CBC 01/01/18 Range/Units 11:15 WBC 4.8 (4.0-11.0) th/mm3 Hgb 14.6 (13.0-17.0) gm/dL Hct 44.0 (39.0-51.0) % Plt Count 183 (150-450) th/mm3 [facility] 01/01/18 11:15 Sodium 139 Potassium 4.4 Chloride 106 Carbon Dioxide 22.1 BUN 30 H Creatinine 1.27 Calcium 8.9 Liver Function 01/01/18 Range/Units 11:15 Total Bilirubin 0.8 (0.2-1.0) mg/dL AST 20 (15-37) U/L ALT 10 L (12-78) U/L Alkaline Phosphatase 91 (45-117) U/L Albumin 2.6 L (3.4-5.0) g/dL Urine 01/01/18 Range/Units 13:25 Urine Color Veda (Yellw/Straw) Urine Clarity Clear (Clear) Urine pH 5.0 (5.0-8.5) Ur Specific [place] 1.023 (1.002-1.035) Urine Protein 30 H (Neg-Trace) mg/dL Urine Glucose (UA) Negative (Negative) mg/dL <Keira Perez - 01/01/18 16:05> - Imaging Impressions Abdomen/Pelvis CT 01/01/18 11:02 CONCLUSION: 1. Stable CT scan of the abdomen and pelvis compared to the prior study. <Ashvin Dodd - 01/01/18 19:46> Impressions Abdomen/Pelvis CT 01/01/18 11:02 CONCLUSION: 1. Stable CT scan of the abdomen and pelvis compared to the prior study. <Keira Perez 01/01/18 16:05> Caprini VTE Risk Assessment Caprini VTE Risk Assessment: Moderate/High Risk (score >= 2) (On Eliquis) < Keira Perez 01/01/18 16:36> Caprini Risk Assessment Model: Point Value = 1 Point Value = 2 Point Value = 3 Point Value = 5 Age 41-60 Minor surgery BMI > 25 kg/m2 Swollen legs Varicose veins or History of unexplained or recurrent spontaneous Oral contraceptives or hormone replacement Sepsis (< 1 month) Serious lung disease, including pneumonia (< 1 month) Abnormal pulmonary function Acute myocardial infarction Congestive heart failure (< 1 month) History of inflammatory bowel disease Medical patient at bed rest Age 61-74 Arthroscopic surgery Major open surgery (> 45 min) Laparoscopic surgery (> 45 min) Malignancy Confined to bed (> 72 hours) Immobilizing plaster cast Central venous access Age >= 75 History of VTE Family history of VTE Factor V Leiden Prothrombin [id number] Lupus anticoagulant Anticardiolipin antibodies Elevated serum homocysteine Heparin-induced thrombocytopenia Other congenital or acquired thrombophilia Stroke (< 1 month) Elective arthroplasty Hip, pelvis, or leg fracture Acute spinal cord injury (< 1 month) <Ashvin Dodd - 01/01/18 19:46> Point Value = 1 Point Value = 2 Point Value = 3 Point Value = 5 Age 41-60 Minor surgery BMI > 25 kg/m2 Swollen legs Varicose veins or History of unexplained or recurrent spontaneous Oral contraceptives or hormone replacement Sepsis (< 1 month) Serious lung disease, including pneumonia (< 1 month) Abnormal pulmonary function Acute myocardial infarction Congestive heart failure (< 1 month) History of inflammatory bowel disease Medical patient at bed rest Age 61-74 Arthroscopic surgery Major open surgery (> 45 min) Laparoscopic surgery (> 45 min) Malignancy Confined to bed (> 72 hours) Immobilizing plaster cast Central venous access Age >= 75 History of VTE Family history of VTE Factor V Leiden Prothrombin [id number] Lupus anticoagulant Anticardiolipin antibodies Elevated serum homocysteine Heparin-induced thrombocytopenia Other congenital or acquired thrombophilia Stroke (< 1 month) Elective arthroplasty Hip, pelvis, or leg fracture Acute spinal cord injury (< 1 month) <Keira Perez - 01/01/18 16:05> Prophylaxis Regimen: Total Risk Factor Score Risk Level Prophylaxis Regimen 0-1 Low Early ambulation 2 Moderate Order ONE of the following: *Sequential Compression Device (SCD) *Heparin 5000 units SQ BID 3-4 Higher Order ONE of the following medications: *Heparin 5000 units SQ TID *Enoxaparin/Lovenox 40 mg SQ daily (WT < 150 kg, CrCl > 30 mL/min) *Enoxaparin/Lovenox 30 mg SQ daily (WT < 150 kg, CrCl > 10-29 mL/min) *Enoxaparin/Lovenox 30 mg SQ BID (WT < 150 kg, CrCl > 30 mL/min) AND/OR *Sequential Compression Device (SCD) 5 or more Highest Order ONE of the following medications: *Heparin 5000 units SQ TID (Preferred with Epidurals) *Enoxaparin/Lovenox 40 mg SQ daily (WT < 150 kg, CrCl > 30 mL/min) *Enoxaparin/Lovenox 30 mg SQ daily (WT < 150 kg, CrCl > 10-29 mL/min) *Enoxaparin/Lovenox 30 mg SQ BID (WT < 150 kg, CrCl > 30 mL/min) AND *Sequential Compression Device (SCD) <Ashvin Dodd - 01/01/18 19:46> Total Risk Factor Score Risk Level Prophylaxis Regimen 0-1 Low Early ambulation 2 Moderate Order ONE of the following: *Sequential Compression Device (SCD) *Heparin 5000 units SQ BID 3-4 Higher Order ONE of the following medications: *Heparin 5000 units SQ TID *Enoxaparin/Lovenox 40 mg SQ daily (WT < 150 kg, CrCl > 30 mL/min) *Enoxaparin/Lovenox 30 mg SQ daily (WT < 150 kg, CrCl > 10-29 mL/min) *Enoxaparin/Lovenox 30 mg SQ BID (WT < 150 kg, CrCl > 30 mL/min) AND/OR *Sequential Compression Device (SCD) 5 or more Highest Order ONE of the following medications: *Heparin 5000 units SQ TID (Preferred with Epidurals) *Enoxaparin/Lovenox 40 mg SQ daily (WT < 150 kg, CrCl > 30 mL/min) *Enoxaparin/Lovenox 30 mg SQ daily (WT < 150 kg, CrCl > 10-29 mL/min) *Enoxaparin/Lovenox 30 mg SQ BID (WT < 150 kg, CrCl > 30 mL/min) AND *Sequential Compression Device (SCD) <Keira Perez - 01/01/18 16:05> Assessment and Plan - Assessment (1) Intractable nausea and vomiting Code(s): R11.2 - Nausea with vomiting, unspecified Status: Acute Plan: Patient states that he has a history of good results with Reglan IV Reglan 5 mg every 6 hours as needed Zofran 4 mg p.o. every 6 hours as needed, may alternate with Reglan Attempt liquid diet as tolerated (2) KENIA (acute kidney injury) Code(s): N17.9 - Acute kidney failure, unspecified Status: Acute Plan: Avoid nephrotoxic agents and aggressive IV hydration as above (3) Stage 4 lung cancer Code(s): C34.90 - Malignant neoplasm of unspecified part of unspecified bronchus or lung Status: Acute Plan: Call will be placed to Dr. Fink, otherwise patient will follow-up with oncology as an outpatient (4) Back pain Code(s): M54.9 - Dorsalgia, unspecified Status: Chronic Plan: Chronic in nature, continue home pain control with Percocet and OxyContin (5) Atrial fibrillation Code(s): I48.91 - Unspecified atrial fibrillation Status: Acute (6) Hypertension Code(s): I10 - Essential (primary) hypertension Status: Acute (7) Dyslipidemia Code(s): E78.5 - Hyperlipidemia, unspecified Status: Acute (8) Nutrition, metabolism, and development symptoms Code(s): R63.8 - Other symptoms and signs concerning food and fluid intake Status: Acute <Ashvin Dodd - 01/01/18 19:46> (1) Intractable nausea and vomiting Code(s): R11.2 - Nausea with vomiting, unspecified Status: Acute Plan: Patient status post radiation treatment on Sunday. -IV Reglan 5 mg every 6 hours as needed -Zofran 4 mg p.o. as needed -Patient on full liquid diet -CT abdomen and pelvis stable from prior exam -CMP in a.m. replete electrolytes as needed (2) KENIA (acute kidney injury) Code(s): N17.9 - Acute kidney failure, unspecified Status: Acute Plan: -Normal saline 135 mL's per hour -Avoid nephrotoxic agents -Repeat BMP in a.m. -Patient received 2 fluid boluses in the ED -Creatinine 1.7 up from 0.9 in November (3) Stage 4 lung cancer Code(s): C34.90 - Malignant neoplasm of unspecified part of unspecified bronchus or lung Status: Acute Plan: Patient patient followed by Dr. Fink. Courtesy call placed to Dr. Fink. At this time he agrees with current plan. He will be available if patient would like to see him. No formal consult needed. (4) Back pain Code(s): M54.9 - Dorsalgia, unspecified Status: Chronic Plan: -Likely related to radiation and bone metastases -Continue home Percocet and OxyContin (5) Atrial fibrillation Code(s): I48.91 - Unspecified atrial fibrillation Status: Acute Plan: Continue home Eliquis and metoprolol 25 mg daily. (6) Hypertension Code(s): I10 - Essential (primary) hypertension Status: Acute Plan: Continue metoprolol. Monitor vital signs. (7) Dyslipidemia Code(s): E78.5 - Hyperlipidemia, unspecified Status: Acute Plan: Continue home Lipitor. (8) Nutrition, metabolism, and development symptoms Code(s): R63.8 - Other symptoms and signs concerning food and fluid intake Status: Acute Plan: Fluids: Normal saline 135 mL's per hour DVT prophylaxis: SCDs while in bed. On home Eliquis GI prophylaxis: Not needed at this time <Keira Perez - 01/01/18 16:12> - Assessment and Plan Discussed Condition With: Kate Dodd and Sofy <Keira Perez - 01/01/18 16:36> - Attending Attestation Patient was examined independently and case discussed with resident physicians I have read the above note and agree with the assessment/plan as discussed with me I was involved in all medical decision making for this patient Ashvin Dodd MD <Ashvin Dodd - 01/01/18 19:46> <Keira Perez - Last Filed: 01/01/18 16:12> (1) Intractable nausea and vomiting Qualifiers: Vomiting type: unspecified Qualified Code(s): R11.2 - Nausea with vomiting, unspecified (4) Back pain Qualifiers: Back pain location: low back pain Chronicity: chronic Back pain laterality: bilateral Sciatica presence: without sciatica Qualified Code(s): M54.5 - Low back pain; G89.29 - Other chronic pain <Ashvin Dodd - Last Filed: 01/01/18 19:46> (1) Intractable nausea and vomiting Qualifiers: Vomiting type: unspecified Qualified Code(s): R11.2 - Nausea with vomiting, unspecified (4) Back pain Qualifiers: Back pain location: low back pain Chronicity: chronic Back pain laterality: bilateral Sciatica presence: without sciatica Qualified Code(s): M54.5 - Low back pain; G89.29 - Other chronic pain <Keira Perez - Last Filed: 01/01/18 16:12> (1) Intractable nausea and vomiting Qualifiers: Vomiting type: unspecified Qualified Code(s): R11.2 - Nausea with vomiting, unspecified (4) Back pain Qualifiers: Back pain location: low back pain Chronicity: chronic Back pain laterality: bilateral Sciatica presence: without sciatica Qualified Code(s): M54.5 - Low back pain; G89.29 - Other chronic pain <Ashvin Dodd - Last Filed: 01/01/18 19:46> (1) Intractable nausea and vomiting Qualifiers: Vomiting type: unspecified Qualified Code(s): R11.2 - Nausea with vomiting, unspecified (4) Back pain Qualifiers: Back pain location: low back pain Chronicity: chronic Back pain laterality: bilateral Sciatica presence: without sciatica Qualified Code(s): M54.5 - Low back pain; G89.29 - Other chronic pain
[2018-01-01] MEDS ORDERED: ALPRAZolam 0.25 MG Tablet PO PRN (16:33)
[2018-01-01] MEDS: oxyCODONE HCL 20 MG Controlled Release Tablet PO SCH (18:46)
[2018-01-01] MEDS: Sod Chloride 0.9% Inj 1,000 ML IV.CONT SCH (18:47)
[2018-01-01] MEDS: Metoprolol Tartrate 25 MG Tablet PO SCH (19:32)
[2018-01-01] MEDS: Senna/Docusate Sodium 8.6/50 MG Tablet PO SCH (21:58)
[2018-01-02] MEDS: oxyCODONE/Acetaminophen 10/325 Tablet PO PRN ×2 (03:03→13:27)
[2018-01-02] MEDS: oxyCODONE HCL 20 MG Controlled Release Tablet PO SCH (05:53)
[2018-01-02] MEDS: Sod Chloride 0.9% Inj 1,000 ML IV.CONT SCH ×2 (05:56→08:42)
[2018-01-02 07:28] LABS: Hematocrit 35.4 % (39.0-51.0); Hemoglobin 11.7 gm/dL (13.0-17.0); Mean Corpuscular Hemoglobin 28.4 pg (27.0-34.0); Mean Corpuscular Volume 86.1 fL (80.0-100.0); Mean Platelet Volume 9.4 fL (7.0-11.0); Platelet Count 158 th/mm3 (150-450); Red Blood Count 4.11 mil/mm3 (4.50-5.90); Red Cell Distribution Width 14.4 % (11.6-17.2); White Blood Count 3.4 th/mm3 (4.0-11.0)
[2018-01-02 07:47] LABS: Calcium 7.8 mg/dL (8.5-10.1); Carbon Dioxide 24.1 meq/L (21.0-32.0); Potassium 3.4 meq/L (3.5-5.1)
[2018-01-02] MEDS: Metoprolol Tartrate 25 MG Tablet PO SCH (08:53)
[2018-01-02] MEDS: Senna/Docusate Sodium 8.6/50 MG Tablet PO SCH (08:53)
[2018-01-02] MEDS ORDERED: ALFUZOSIN 10 MG PO SCH (09:00)
--- NOTE | 2018-01-02 10:54 | P.PNFP ---
Subjective Interval history: Reason seen and examined this morning. Reports that he had no vomiting last night, reduce nausea. He threw up once this morning after taking off his medication. Otherwise no further nausea or vomiting. Denies fever, chills, abdominal pain, chest pain, changes in urinary or bowel habits. He states he did stand up last night to go to the bathroom, slipped and braced with his left arm on the wall. Did not fall to the floor. No significant pain in his arm today. No other complaints today. <Chema Goetz - 01/02/18 10:54> Results - Labs Result diagrams: 01/02/18 06:50 01/02/18 06:50 <Ashvin Dodd - 01/02/18 15:14> Abnormal lab results 01/02/18 01/02/18 Range/Units 06:50 06:50 WBC 3.4 L (4.0-11.0) th/mm3 RBC 4.11 L (4.50-5.90) mil/mm3 Hgb 11.7 L D (13.0-17.0) gm/dL Hct 35.4 L (39.0-51.0) % Potassium 3.4 L D (3.5-5.1) meq/L Chloride 110 H (98-107) meq/L BUN 25 H (7-18) mg/dL Estimated GFR 82 L (>89) mL/min Calcium 7.8 L D (8.5-10.1) mg/dL Short CBC 01/02/18 Range/Units 06:50 WBC 3.4 L (4.0-11.0) th/mm3 Hgb 11.7 L D (13.0-17.0) gm/dL Hct 35.4 L (39.0-51.0) % Plt Count 158 (150-450) th/mm3 BMP 01/02/18 06:50 Sodium 143 Potassium 3.4 L D Chloride 110 H Carbon Dioxide 24.1 BUN 25 H Creatinine 0.89 Calcium 7.8 L D <Ashvin Dodd - 01/02/18 15:14> Abnormal lab results 01/01/18 01/01/18 01/01/18 Range/Units 11:15 11:15 13:25 WBC (4.0-11.0) th/mm3 RBC (4.50-5.90) mil/mm3 Hgb (13.0-17.0) gm/dL Hct (39.0-51.0) % [place] % (Auto) 21.7 H (0.0-8.0) % Lymph # (Auto) 0.6 L (1.0-4.8) th/mm3 [place] # (Auto) 1.0 H (0.0-0.9) th/mm3 Potassium (3.5-5.1) meq/L Chloride (98-107) meq/L BUN 30 H (7-18) mg/dL Estimated GFR 54 L (>89) mL/min Random Glucose 118 H (74-106) mg/dL Calcium (8.5-10.1) mg/dL ALT 10 L (12-78) U/L Albumin 2.6 L (3.4-5.0) g/dL Lipase 45 L (73-393) U/L Urine Protein 30 H (Neg-Trace) mg/dL Urine Mucus Few H (Occasional) /lpf 01/02/18 01/02/18 Range/Units 06:50 06:50 WBC 3.4 L (4.0-11.0) th/mm3 RBC 4.11 L (4.50-5.90) mil/mm3 Hgb 11.7 L D (13.0-17.0) gm/dL Hct 35.4 L (39.0-51.0) % [place] % (Auto) (0.0-8.0) % Lymph # (Auto) (1.0-4.8) th/mm3 [place] # (Auto) (0.0-0.9) th/mm3 Potassium 3.4 L D (3.5-5.1) meq/L Chloride 110 H (98-107) meq/L BUN 25 H (7-18) mg/dL Estimated GFR 82 L (>89) mL/min Random Glucose (74-106) mg/dL Calcium 7.8 L D (8.5-10.1) mg/dL ALT (12-78) U/L Albumin (3.4-5.0) g/dL Lipase (73-393) U/L Urine Protein (Neg-Trace) mg/dL Urine Mucus (Occasional) /lpf Short CBC 01/01/18 01/02/18 Range/Units 11:15 06:50 WBC 4.8 3.4 L (4.0-11.0) th/mm3 Hgb 14.6 11.7 L D (13.0-17.0) gm/dL Hct 44.0 35.4 L (39.0-51.0) % Plt Count 183 158 (150-450) th/mm3 BMP 01/01/18 01/02/18 11:15 06:50 Sodium 139 143 Potassium 4.4 3.4 L D Chloride 106 110 H Carbon Dioxide 22.1 24.1 BUN 30 H 25 H Creatinine 1.27 0.89 Calcium 8.9 7.8 L D Liver Function 01/01/18 Range/Units 11:15 Total Bilirubin 0.8 (0.2-1.0) mg/dL AST 20 (15-37) U/L ALT 10 L (12-78) U/L Alkaline Phosphatase 91 (45-117) U/L Albumin 2.6 L (3.4-5.0) g/dL Urine 01/01/18 Range/Units 13:25 Urine Color Veda (Yellw/Straw) Urine Clarity Clear (Clear) Urine pH 5.0 (5.0-8.5) Ur Specific [place] 1.023 (1.002-1.035) Urine Protein 30 H (Neg-Trace) mg/dL Urine Glucose (UA) Negative (Negative) mg/dL <Chema Goetz - 01/02/18 10:54> - Imaging Impressions Abdomen/Pelvis CT 01/01/18 11:02 CONCLUSION: 1. Stable CT scan of the abdomen and pelvis compared to the prior study. <Chema Goetz - 01/02/18 10:54> Physical Exam Vital signs: Vital Signs 01/01/18 16:00 01/01/18 20:00 01/01/18 23:41 Temperature 97.6 F 97.7 F 97.7 F Pulse Rate 76 80 82 Respiratory Rate 18 18 18 Blood Pressure 121/72 125/62 126/65 Pulse Oximetry 93 L 96 95 01/02/18 08:00 01/02/18 12:00 Temperature 98.6 F 98.4 F Pulse Rate 84 70 Respiratory Rate 17 18 Blood Pressure 111/67 112/60 Pulse Oximetry 93 L 91 L Intake & Output 01/01/18 01/02/18 01/02/18 18:59 06:59 18:59 Intake Total 240 / 240 1480 / 1480 1999 Output Total 200 / 200 Balance 40 / 40 1480 / 1480 1999 Weight 97.976 kg 97.5 kg Intake: IV 1000 / 1000 1999 NS Inj 1,000 ML @ 135 mls/hr IV 1000 / 1000 .CONT .Q7H25M LOGAN Rx#:[id number] Oral 240 / 240 480 / 480 Output: Urine 200 / 200 Other: # Voids 2 # Bowel Movements 1 1 <JuAshvin - 01/02/18 15:14> Vital Signs 01/01/18 11:21 01/01/18 11:22 01/01/18 16:00 Temperature 97.6 F Pulse Rate 138 H 76 Respiratory Rate 18 18 Blood Pressure 134/78 121/72 Pulse Oximetry 96 95 93 L 01/01/18 20:00 01/01/18 23:41 01/02/18 08:00 Temperature 97.7 F 97.7 F 98.6 F Pulse Rate 80 82 84 Respiratory Rate 18 18 17 Blood Pressure 125/62 126/65 111/67 Pulse Oximetry 96 95 93 L Intake & Output 01/01/18 01/02/18 01/02/18 18:59 06:59 18:59 Intake Total 240 / 240 1480 / 1480 1999 Output Total 200 / 200 Balance 40 / 40 1480 / 1480 1999 Weight 97.976 kg 97.5 kg Intake: IV 1000 / 1000 1999 NS Inj 1,000 ML @ 135 mls/hr IV 1000 / 1000 .CONT .Q7H25M LOGAN Rx#:[id number] Oral 240 / 240 480 / 480 Output: Urine 200 / 200 Other: # Voids 2 # Bowel Movements 1 1 <Chema Goetz - 01/02/18 10:54> Narrative: GENERAL: Laying in bed, no acute distress SKIN: Warm and dry. HEAD: Atraumatic. Normocephalic. EYES: Pupils equal and round. No scleral icterus. No injection or drainage. ENT: No nasal bleeding or discharge. Mucous membranes pink and moist. NECK: Trachea midline. No JVD. CARDIOVASCULAR: Regular rate and rhythm. RESPIRATORY: No accessory muscle use. Clear to auscultation. Breath sounds equal bilaterally. GASTROINTESTINAL: Abdomen soft, non-tender, nondistended. Hepatic and splenic margins not palpable. MUSCULOSKELETAL: Extremities without clubbing, cyanosis, or edema. No obvious deformities. Full range of motion in bilateral upper extremities, active and passive. No significant tenderness, no deformity. No decrease in strength. NEUROLOGICAL: Awake and alert. No obvious cranial nerve deficits. Motor grossly within normal limits. Normal speech. PSYCHIATRIC: Appropriate mood and affect; insight and judgment normal. <Chema Goetz - 01/02/18 10:54> Assessment and Plan - Assessment (1) Intractable nausea and vomiting Code(s): R11.2 - Nausea with vomiting, unspecified Status: Acute (2) KENIA (acute kidney injury) Code(s): N17.9 - Acute kidney failure, unspecified Status: Acute (3) Stage 4 lung cancer Code(s): C34.90 - Malignant neoplasm of unspecified part of unspecified bronchus or lung Status: Acute (4) Back pain Code(s): M54.9 - Dorsalgia, unspecified Status: Chronic (5) Atrial fibrillation Code(s): I48.91 - Unspecified atrial fibrillation Status: Acute (6) Hypertension Code(s): I10 - Essential (primary) hypertension Status: Acute (7) Dyslipidemia Code(s): E78.5 - Hyperlipidemia, unspecified Status: Acute (8) Nutrition, metabolism, and development symptoms Code(s): R63.8 - Other symptoms and signs concerning food and fluid intake Status: Acute <Ashvin Dodd - 01/02/18 15:14> (1) Intractable nausea and vomiting Code(s): R11.2 - Nausea with vomiting, unspecified Status: Acute Plan: Patient states that he has a history of good results with Reglan. Nausea and vomiting improved. IV Reglan 5 mg every 6 hours as needed Zofran 4 mg p.o. every 6 hours as needed, may alternate with Reglan Attempt liquid diet as tolerated (2) KENIA (acute kidney injury) Code(s): N17.9 - Acute kidney failure, unspecified Status: Acute Plan: Avoid nephrotoxic agents and aggressive IV hydration as above (3) Stage 4 lung cancer Code(s): C34.90 - Malignant neoplasm of unspecified part of unspecified bronchus or lung Status: Acute Plan: Spoke with Dr. Fink about patient and current hospitalization. No significant change to current management. (4) Back pain Code(s): M54.9 - Dorsalgia, unspecified Status: Chronic Plan: Chronic in nature, continue home pain control with Percocet and OxyContin (5) Atrial fibrillation Code(s): I48.91 - Unspecified atrial fibrillation Status: Acute Plan: Continue home Eliquis and metoprolol 25 mg daily. (6) Hypertension Code(s): I10 - Essential (primary) hypertension Status: Acute Plan: Continue metoprolol. Monitor vital signs. (7) Dyslipidemia Code(s): E78.5 - Hyperlipidemia, unspecified Status: Acute Plan: Continue home Lipitor. (8) Nutrition, metabolism, and development symptoms Code(s): R63.8 - Other symptoms and signs concerning food and fluid intake Status: Acute Plan: Fluids: Tolerating PO DVT prophylaxis: SCDs while in bed. 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 Fink as scheduled Ashvin Dodd MD <Ashvin Dodd - 01/02/18 15:14> <Chema Goetz - Last Filed: 01/02/18 10:48> (1) Intractable nausea and vomiting Qualifiers: Vomiting type: unspecified Qualified Code(s): R11.2 - Nausea with vomiting, unspecified (4) Back pain Qualifiers: Back pain location: low back pain Chronicity: chronic Back pain laterality: bilateral Sciatica presence: without sciatica Qualified Code(s): M54.5 - Low back pain; G89.29 - Other chronic pain <Ashvin Dodd - Last Filed: 01/02/18 15:14> (1) Intractable nausea and vomiting Qualifiers: Vomiting type: unspecified Qualified Code(s): R11.2 - Nausea with vomiting, unspecified (4) Back pain Qualifiers: Back pain location: low back pain Chronicity: chronic Back pain laterality: bilateral Sciatica presence: without sciatica Qualified Code(s): M54.5 - Low back pain; G89.29 - Other chronic pain <Chema Goetz - Last Filed: 01/02/18 10:48> (1) Intractable nausea and vomiting Qualifiers: Vomiting type: unspecified Qualified Code(s): R11.2 - Nausea with vomiting, unspecified (4) Back pain Qualifiers: Back pain location: low back pain Chronicity: chronic Back pain laterality: bilateral Sciatica presence: without sciatica Qualified Code(s): M54.5 - Low back pain; G89.29 - Other chronic pain <JuAshvin - Last Filed: 01/02/18 15:14> (1) Intractable nausea and vomiting Qualifiers: Vomiting type: unspecified Qualified Code(s): R11.2 - Nausea with vomiting, unspecified (4) Back pain Qualifiers: Back pain location: low back pain Chronicity: chronic Back pain laterality: bilateral Sciatica presence: without sciatica Qualified Code(s): M54.5 - Low back pain; G89.29 - Other chronic pain
[2018-01-02 12:16] VITALS: BP 112/60; PULSE 70; RESP 18; TEMP 98.4; O2SAT 91
== END 2018-01-02 14:09 | disposition home or self-care (01) ==
LOC: NEPC 09:09 → N07 09:09 → NEDA 13:43 → INTOOBSV 13:43 → N07 16:17
PROVIDERS: ADMIT Family Medicine; ATTEND Family Medicine